=== PATIENT | female | born 1950 | race Caucasian/White ===

== ENCOUNTER 2019-02-22 06:41 | Inpatient (IN) | payer OTHER ==
[2019-02-22] MEDS ORDERED: MORPHINE 2 MG/ML SYR ONE (07:29)
[2019-02-22] MEDS ORDERED: ONDANSETRON 4 MG/2 ML VIAL ONE (07:30)
[2019-02-22] MEDS ORDERED: FAMOTIDINE 20 MG/2 ML VIAL IV ONE (07:30)
[2019-02-22] MEDS ORDERED: NA CHLORIDE 0.9% 500 ML ONE ×2 (07:30→11:44)
[2019-02-22] MEDS ORDERED: NA CHLORIDE 0.9% 1,000 ML ONE (07:30)
[2019-02-22 07:31] LABS: Basophils % 0.5 % (0-1.3); Hematocrit 37.6 % (36.0-45.0); Lymphocytes % 14.3 % (15.3-44.8); MPV 7.7 fL (7.6-11.3); RBC Red Blood Cell Count 4.37 M/uL (3.86-4.86)
[2019-02-22 07:45] LABS: Albumin 3.1 g/dL (3.4-5.0); Bilirubin Direct 0.1 mg/dL (0-0.2); Bilirubin Total 0.6 mg/dL (0.2-1.0); Magnesium 2.2 mg/dL (1.8-2.4); Potassium 4.3 mmol/L (3.5-5.1); Protein, Total 7.8 g/dL (6.4-8.2)
--- NOTE | 2019-02-22 08:25 | RAD REPORT ---
EXAM DESCRIPTION: RAD - Chest Single View - 02/22/2019 7:28 am CLINICAL HISTORY: ABDOMINAL DISTENTION Chest pain. COMPARISON: No comparisons FINDINGS: Portable technique limits examination quality. The lungs are grossly clear. The heart is mildly enlarged in size. No displaced fractures.Aortic athe rosclerosis. IMPRESSION: No acute intrathoracic process suspected.
--- NOTE | 2019-02-22 08:41 | RAD REPORT ---
EXAM DESCRIPTION: US - Extremity Venous Uni Ltd - 02/22/2019 8:30 am CLINICAL HISTORY: PAIN Leg swelling and edema. COMPARISON: <Comparisons> FINDINGS: Left lower extremity venous system was interrogated with Doppler technique. Normal flow, c ompressibility and augmentation was noted. There is no DVT present. IMPRESSION: No evidence of left lower extremity deep venous thrombosis.
--- NOTE | 2019-02-22 08:57 | RAD REPORT ---
EXAM DESCRIPTION: CTAbdomen Pelvis W Contrast - 02/22/2019 8:38 am CLINICAL HISTORY: Abdominal pain. Abdominal distention;Abd pain COMPARISON: No comparisons TECHNIQUE: Biphasic CT imaging of the abdomen and pelvis was performed with 100 ml non-ionic IV cont rast. All CT scans are performed using dose optimization technique as appropriate and may include automated exposure control or mA/KV adjustment according to patient size. FINDINGS: The lung bases are clear. There is prominent distention of the gallbladder with probable trace pericholecystic fluid and planning intern al stone. Mild fatty liver is present. The spleen, right adrenal gland are normal. 3 cm left adrenal mass is present. Punctate calculus is present in the left kidney. No hydronephrosis. No right-sided s tone seen. No bowel obstruction, free air, intra-abdominal free fluid or abscess. Aortic atherosclerosis. The ap pendix is normal. Sigmoid diverticulosis without diverticulitis. No evidence of significant lymphaden opathy. Trace free fluid is seen in the pelvis. Moderate lumbar degenerative changes. IMPRESSION: Prominent distention of the gallbladder is seen with cholelithiasis suspected. Correlati on with gallbladder sonography would be recommended. 3 cm left adrenal mass is present, probably metastatic.
[2019-02-22 09:13] LABS: Anisocytosis 1+; Blood Morphology Comment NOTED (NOT SEEN); Platelet Estimate INCR
--- NOTE | 2019-02-22 09:46 | RAD REPORT ---
EXAM DESCRIPTION: US - Abdomen Exam Limited - 02/22/2019 9:31 am CLINICAL HISTORY: ABD PAIN COMPARISON: No comparisons FINDINGS: The gallbladder demonstrates shadowing gallstones and debris. Gallbladder wall mildly thic kened measuring 4 mm. The common bile duct is upper limit of normal measuring 6 mm. The liver demonstrates no findings of intrahepatic biliary dilatation. IMPRESSION: Cholelithiasis with upper limit of normal gallbladder wall and mild gallbladder distensi on. If acute cholecystitis is a clinical concern, HIDA scan followup may be of value.
[2019-02-22 10:43] LABS: Urine Bacteria >50 /HPF (<20); Urine RBC >50 /HPF (NONE SEEN)
[2019-02-22 10:44] LABS: Urine Culture Reflex Order NOT NEEDED
[2019-02-22] MEDS ORDERED: CEFTRIAXONE/SWI 1gm 1 GM/10 ML SYR ONE (11:05)
--- NOTE | 2019-02-22 11:07 | EKG ---
Test Date: 2019-02-22 Test Time: 07:23:39 Child Adolescent Psychiatrist: LINA MEASUREMENT RESULTS: Intervals: Rate: 118 KS: 158 QRSD: 106 QT: 344 QTc: 482 [place]: P: -20 KS: 158 QRS: -67 T: 62 INTERPRETIVE STATEMENTS: Sinus tachycardia with occasional and consecutive premature ventricular complexes Left axis deviation Inferior infarct, age undetermined Anterolateral infarct, age undetermined Abnormal ECG No previous ECG available for comparison Electronically Signed On 02-22-19 11:06:00 CDT by Chet Tay
--- NOTE | 2019-02-22 11:34 | ER ---
Nurse's Notes [facility] Name: Audra Gonzalez Age: 68 yrs Sex: Female : 1950 Arrival Date: 02/22/2019 Time: 06:58 Bed 7 Private MD: Diagnosis: Unspecified abdominal pain;Cholelithiasis Presentation: 02/22 07:02 Presenting complaint: EMS states: Abdominal pain and distention x 2 weeks; On hospice lp1 related to inoperable brain cancer; Daughter states unsure if she may be constipated; Tender on palpation to RLQ of abdomen. Transition of care: patient was not received from another setting of care. Onset of symptoms was February 22, 2019. Risk Assessment: Do you want to hurt yourself or someone else? Patient reports no desire to harm self or others. Initial Sepsis Screen: Does the patient meet any 2 criteria? RR > 20 per min. HR > 90 bpm. Does the patient have a suspected source of infection? Yes: Acute abdominal pain If YES to both, name of provider notified: Mc CAMARILLO Care prior to arrival: None. 07:02 Method Of Arrival: EMS: [facility] lp1 07:02 Acuity: ELIZ 3 lp1 Triage Assessment: 07:07 General: Appears in no apparent distress. Behavior is calm. Pain: Complains of pain in lp1 abdomen Pain currently is 8 out of 10 on a pain scale. Neuro: Level of Consciousness is awake, Oriented to person, place. GI: Abdomen is distended. Historical: - Allergies: 07:08 No Known Allergies; ak1 - Home Meds: 07:08 lorazepam 1 mg Oral tab 1 tab every 4 hours PRN [Active]; Biscolax 10 mg rectal supp ak1 PRN [Active]; morphine 100mg/5mL Oral CERP 0.5 mL every 2 hours PRN [Active]; citalopram 20 mg tab 1 tab once daily [Active]; metoprolol tartrate 100 mg Oral tab 1 tab once daily [Active]; cyclobenzaprine 10 mg Oral tab 1 tab 3 times per day [Active]; Seroquel 100 mg Oral tab 1 tab at bedtime [Active]; spironolactone 25 mg Oral tab 1 tab 2 times per day [Active]; gabapentin 400 mg oral cap 1 cap 2 times daily [Active]; tramadol 50 mg Oral tab 1 tab every 6 hours [Active]; - PMHx: 07:08 Hypertension; brain cancer; AVM; Depression; ak1 - Immunization history:: Adult Immunizations up to date. - Ebola Screening: : No symptoms or risks identified at this time. - Social history:: Smoking status: Patient/guardian denies using tobacco. Screenin:07 Abuse screen: Denies threats or abuse. Denies injuries from another. Nutritional lp1 screening: No deficits noted. Tuberculosis screening: No symptoms or risk factors identified. Fall Risk Total [place] Fall Scale indicates High Risk Score (45 or more points). Fall prevention measures have been instituted. Side Rails Up X 2 Family Present and informed to notify staff if the need to leave the bedside As available patient and family educated on Fall Prevention Program and Strategies. Assessment: 07:00 General: SEE TRIAGE NOTE. bp 07:00 GI: Bowel sounds present X 4 quads. Abd is soft X 4 quads. bp 07:48 Reassessment: U/S AT B/S. bp 08:17 Reassessment: ALL CURRENT ORDERS COMPLETED, RESULTS PENDING. bp 08:28 Reassessment: PT TO CT. bp 09:18 Reassessment: PT RETURN TO RADIOLOGY. bp 10:00 Reassessment: PT RESTING QUIETLY, NO ACUTE S/S AT THIS TIME. RESULTS PENDING FOR DISPO. bp 10:00 Reassessment: Patient appears in no apparent distress at this time. GI: Bowel sounds bp present X 4 quads. 11:20 Reassessment: PT SLEEPING, NO S/S ACUTE DISTRESS, RESULTS PENDING FOR DISPO. bp 12:49 Reassessment: PT SLEEPING. ADMIT MD AT B/S. bp 13:30 Reassessment: ADMIT IN PROCESS, VS STABLE ON MONITOR. bp 15:30 Reassessment: BED ASSIGNED, ADMIT ORDERS PENDING. bp 16:32 Reassessment: ADMIT COMPLETE, PT MATT WITH TECH. bp Vital Signs: 07:05 BP 115 / 73; Pulse 118; Resp 24; Temp 98.9(O); Pulse Ox 97% on 2 lpm NC; Weight 115.67 lp1 kg; Height 5 ft. 3 in. (160.02 cm); Pain 8/10; 07:20 BP 113 / 69; Pulse 116; Resp 24; Pulse Ox 96% on 2 lpm NC; bp 08:00 BP 123 / 61; Pulse 114; Resp 28; Pulse Ox 97% ; bp 09:00 BP 110 / 50; Pulse 105; Resp 18; Pulse Ox 97% ; bp 10:02 BP 96 / 66; Pulse 111; Resp 17; Pulse Ox 98% ; bp 11:20 BP 98 / 54; Pulse 104; Resp 18; Pulse Ox 95% ; bp 12:49 BP 95 / 50; Pulse 97; Resp 13; Pulse Ox 97% ; bp 13:30 BP 105 / 56; Pulse 97; Resp 13; Pulse Ox 97% ; bp 14:30 BP 109 / 56; Pulse 99; Resp 12; Pulse Ox 98% ; bp 15:27 BP 101 / 55; Pulse 102; Resp 13; Pulse Ox 98% ; bp 16:30 BP 108 / 56; Pulse 102; Resp 15; Pulse Ox 99% ; bp 07:05 Body Mass Index 45.17 (115.67 kg, 160.02 cm) lp1 ED Course: 06:58 Patient arrived in ED. lp1 06:59 Mc Peter PA is PHCP. cp 06:59 Mc Frias MD is Attending Physician. cp 07:03 Reed Altamirano MD is Attending Physician. cp 07:05 Triage completed. lp1 07:06 Arm band placed on. lp1 07:06 Patient has correct armband on for positive identification. Bed in low position. Side lp1 rails up X2. school bus monitor on. Pulse ox on. NIBP on. 07:15 Inserted saline lock: 22 gauge in right hand, using aseptic technique. Blood collected. bp 07:20 Denis Bates, RN is Primary Nurse. bp 07:27 XRAY Chest (1 view) In Process Unspecified. EDMS 07:45 EKG done, by ED staff, reviewed by Mc CAMARILLO. jl7 07:59 Radiology exam delayed due to ultrasound in room. jg6 08:00 Inserted saline lock: 22 gauge in left wrist, using aseptic technique. bp 08:04 US Extremity Venous Unilateral Ltd In Process Unspecified. EDMS 08:06 Ultrasound completed. maurisio 08:39 CT Abd/Pelvis - IV Contrast Only In Process Unspecified. EDMS 09:29 US Abdomen Limited: RUQ/epigastric In Process Unspecified. EDMS 09:56 Urine collected: straight cath specimen, cloudy. Straight cath inserted, using sterile jl7 technique, 16 Fr. Specimen obtained. Returned cloudy urine. Patient tolerated well. Inserted by ARCENIO Gabriel with [employer]. 11:33 Constantino Flores is Hospitalizing Provider. cp 14:51 No provider procedures requiring assistance completed. Patient admitted, IV remains in bp place. Administered Medications: 07:30 Drug: NS 0.9% 500 ml Route: IV; Rate: bolus; Site: right hand; bp 08:30 Follow up: IV Status: Completed infusion; IV Intake: 500ml bp 07:30 Drug: NS 0.9% 1000 ml Route: IV; Rate: 125 ml/hr; Site: right hand; bp 16:33 Follow up: IV Status: Completed infusion; IV Intake: 1000ml bp 07:30 Drug: morphine 2 mg Route: IVP; Site: right hand; bp 07:41 Follow up: Response: Pain is decreased bp 07:30 Drug: Zofran 4 mg Route: IVP; Site: right hand; bp 07:42 Follow up: Response: Nausea is decreased bp 07:30 Drug: Pepcid 20 mg Route: IVP; Site: right hand; bp 07:42 Follow up: Response: Nausea is decreased bp 10:45 Drug: Rocephin 1 grams Route: IV; Rate: calculated rate; Site: right antecubital; bp 11:15 Follow up: IV Status: Completed infusion; IV Intake: 50ml bp 11:40 Drug: NS 0.9% 500 ml Route: IV; Rate: bolus; Site: left wrist; bp 13:00 Follow up: IV Status: Completed infusion; IV Intake: 500ml bp Intake: 08:30 IV: 500ml; Total: 500ml. bp 11:15 IV: 50ml; Total: 550ml. bp 13:00 IV: 500ml; Total: 1050ml. bp 16:33 IV: 1000ml; Total: 2050ml. bp Outcome: 11:33 Decision to Hospitalize by Provider. cp 15:28 Admitted to Tele accompanied by tech, via stretcher, room 215, with oxygen, with chart, bp Report called to BILLIE RG 15:28 Condition: stable 15:28 Instructed on the need for admit. 16:44 Patient left the ED. bp Signatures: Dispatcher [employer] EDJenn Aguirre RN RN lp1 Stefany Love RN RN ak1 Mc Peter PA PA cp Dupre, Jacques jd Leal, Jahala RN RN jl7 Denis Bates RN RN Leigh [id number] Corrections: (The following items were deleted from the chart) 07:06 07:02 Initial Sepsis Screen: Does the patient meet any 2 criteria? No. Patient's lp1 initial sepsis screen is negative. Does the patient have a suspected source of infection? No. Patient's initial sepsis screen is negative. lp1 15:29 15:27 Pulse 102bpm; Resp 13bpm; Pulse Ox 98%; bp bp
--- NOTE | 2019-02-22 11:35 | EDPHYS ---
Physician Documentation [facility] Name: Audra Gonzalez Age: 68 yrs Sex: Female : 1950 Arrival Date: 02/22/2019 Time: 06:58 Bed 7 Private MD: ED Physician Reed Altamirano HPI: 02/22 07:13 This 68 yrs old Female presents to ER via EMS with complaints of Abdominal Pain. cp 07:13 The patient presents with abdominal pain abdominal distention that is diffuse. cp 07:13 Onset: The symptoms/episode began/occurred 2 week(s) ago, and became worse 2 day(s) cp ago. The symptoms do not radiate. Associated signs and symptoms: Pertinent positives: anorexia, Pertinent negatives: blood in stools, chest pain, constipation, diarrhea, fever, shortness of breath. Severity of pain: in the emergency department the pain is unchanged despite home interventions. Daughter reports patient with history of inoperable brain CA and has been bed bound for past 2 years. Patient was on hospice, but hospice has been discontinued because the pain medications made patient less interactive. Historical: - Allergies: 07:08 No Known Allergies; ak1 - Home Meds: 07:08 lorazepam 1 mg Oral tab 1 tab every 4 hours PRN [Active]; Biscolax 10 mg rectal supp ak1 PRN [Active]; morphine 100mg/5mL Oral CERP 0.5 mL every 2 hours PRN [Active]; citalopram 20 mg tab 1 tab once daily [Active]; metoprolol tartrate 100 mg Oral tab 1 tab once daily [Active]; cyclobenzaprine 10 mg Oral tab 1 tab 3 times per day [Active]; Seroquel 100 mg Oral tab 1 tab at bedtime [Active]; spironolactone 25 mg Oral tab 1 tab 2 times per day [Active]; gabapentin 400 mg oral cap 1 cap 2 times daily [Active]; tramadol 50 mg Oral tab 1 tab every 6 hours [Active]; - PMHx: 07:08 Hypertension; brain cancer; AVM; Depression; ak1 - Immunization history:: Adult Immunizations up to date. - Ebola Screening: : No symptoms or risks identified at this time. - Social history:: Smoking status: Patient/guardian denies using tobacco. ROS: 07:20 Constitutional: Positive for poor PO intake, Negative for body aches, chills, fever. cp 07:20 Eyes: Negative for injury, pain, redness, and discharge. cp 07:20 ENT: Negative for drainage from ear(s), ear pain, sore throat, difficulty swallowing, difficulty handling secretions. 07:20 Cardiovascular: Negative for chest pain, edema. 07:20 Respiratory: Negative for cough, shortness of breath, wheezing. 07:20 Abdomen/GI: Positive for abdominal pain, nausea, abdominal distension, Negative for vomiting, diarrhea, constipation, black/tarry stool, rectal bleeding. 07:20 Back: Negative for pain at rest, pain with movement. 07:20 : Negative for urinary symptoms. 07:20 Skin: Negative for cellulitis, rash. 07:20 Neuro: Negative for altered mental status, headache. 07:20 All other systems are negative. Exam: 07:30 Constitutional: The patient appears in no acute distress, alert, awake, cp non-diaphoretic, non-toxic, well developed, well nourished, uncomfortable. 07:30 Head/Face: Normocephalic, atraumatic. cp 07:30 Eyes: Periorbital structures: appear normal, Conjunctiva: normal, no exudate, no injection, Sclera: no appreciated abnormality, Lids and lashes: appear normal, bilaterally. 07:30 ENT: External ear(s): are unremarkable, Ear canal(s): are normal, clear, TM's: bulging, is not appreciated, bilaterally, dullness, bilaterally, erythema, is not appreciated, bilaterally, Nose: is normal, Mouth: Lips: dry, Oral mucosa: dry, Posterior pharynx: is normal, airway is patent, no erythema, no exudate. 07:30 Neck: ROM/movement: is normal, is supple, without pain, no range of motions limitations, no meningismus, no nuchal rigidity. 07:30 Chest/axilla: Inspection: normal, Palpation: is normal, no crepitus, no tenderness. 07:30 Cardiovascular: Rate: tachycardic, Rhythm: regular, Edema: is not appreciated, JVD: is not appreciated. 07:30 Respiratory: the patient does not display signs of respiratory distress, Respirations: labored breathing, that is mild, tachypnea, that is mild, Breath sounds: decreased breath sounds, that are mild, throughout, stridor, is not appreciated. 07:30 Abdomen/GI: Inspection: distension, that is mild, Bowel sounds: active, all quadrants, Palpation: soft, in all quadrants, moderate abdominal tenderness, in the right upper quadrant, rebound tenderness, is not appreciated, voluntary guarding, is not appreciated, involuntary guarding, is not appreciated. 07:30 Back: pain, is absent, ROM is normal. 07:30 Skin: no rash present. 07:30 Neuro: Orientation: no acute changes, per family, Mentation: no acute changes, per family. 07:35 ECG was reviewed by the Attending Physician. cp Vital Signs: 07:05 BP 115 / 73; Pulse 118; Resp 24; Temp 98.9(O); Pulse Ox 97% on 2 lpm NC; Weight 115.67 lp1 kg; Height 5 ft. 3 in. (160.02 cm); Pain 8/10; 07:20 BP 113 / 69; Pulse 116; Resp 24; Pulse Ox 96% on 2 lpm NC; bp 08:00 BP 123 / 61; Pulse 114; Resp 28; Pulse Ox 97% ; bp 09:00 BP 110 / 50; Pulse 105; Resp 18; Pulse Ox 97% ; bp 10:02 BP 96 / 66; Pulse 111; Resp 17; Pulse Ox 98% ; bp 11:20 BP 98 / 54; Pulse 104; Resp 18; Pulse Ox 95% ; bp 12:49 BP 95 / 50; Pulse 97; Resp 13; Pulse Ox 97% ; bp 13:30 BP 105 / 56; Pulse 97; Resp 13; Pulse Ox 97% ; bp 14:30 BP 109 / 56; Pulse 99; Resp 12; Pulse Ox 98% ; bp 15:27 BP 101 / 55; Pulse 102; Resp 13; Pulse Ox 98% ; bp 16:30 BP 108 / 56; Pulse 102; Resp 15; Pulse Ox 99% ; bp 07:05 Body Mass Index 45.17 (115.67 kg, 160.02 cm) lp1 MDM: 07:03 Patient medically screened. cp 10:25 Data reviewed: vital signs, nurses notes, lab test result(s), radiologic studies, CT cp scan, ultrasound. 10:25 Physician consultation: Noah Forrester MD was called at 10:25, regarding consult, patient's cp condition, bending roll operator will page. 10:45 Physician consultation: Noah Forrester MD was called at 10:45, bending roll operator will page. cp 11:31 Physician consultation: Constantino Flores was called at 11:31, was contacted at 11:31, cp regarding admission, to the medical/surgical unit. patient's condition, and will see patient in ED. 11:40 Physician consultation: Noah Forrester MD was called at 11:40, bending roll operator will page. cp 18:20 Physician consultation: Noah Forrester MD was contacted at 18:20, regarding consult, cp patient's condition, after a discussion of the case, a recommendation for transfer for higher level of care is made, requests transfer of patient for evaluation and placement of cholecystectomy tube. 18:25 Physician consultation: Constantino Flores was contacted at 18:25, regarding regarding cp transfer, reports will attempt to transfer patient from floor tomorrow. Will continue IV Rocephin. 02/22 07:02 Order name: Basic Metabolic Panel; Complete Time: 08:19 02/22 07:02 Order name: CBC with Diff; Complete Time: 10:18 02/22 07:42 Interpretation: Normal except: WBC 21.1; PLT 450; MARIEL% 75.7; LYM% 14.3; NEUT A 16.0; cp MNA 1.9. 02/22 07:02 Order name: Creatinine for Radiology; Complete Time: 08:19 cp 02/22 07:02 Order name: Hepatic Function; Complete Time: 08:19 cp 02/22 07:02 Order name: Lipase; Complete Time: 08:19 cp 02/22 07:02 Order name: Urine Microscopic Only; Complete Time: 11:27 02/22 07:02 Order name: Magnesium; Complete Time: 08:19 cp 02/22 07:02 Order name: CT Abd/Pelvis - IV Contrast Only; Complete Time: 09:00 cp 02/22 07:12 Order name: Procalcitonin; Complete Time: 08:19 02/22 07:12 Order name: Lactate; Complete Time: 08:19 cp 02/22 07:12 Order name: XRAY Chest (1 view); Complete Time: 08:42 cp 02/22 08:42 Interpretation: Report review. 02/22 07:19 Order name: Blood Culture Adult (2) lp1 02/22 09:14 Order name: Manual Differential; Complete Time: 10:18 EDMS 12 10:28 Order name: Urine Dipstick--Ancillary (enter results); Complete Time: 19:27 bd 02/22 07:02 Order name: IV Saline Lock; Complete Time: 07:24 cp 02/22 07:02 Order name: Labs collected and sent; Complete Time: 07:24 cp 02/22 07:02 Order name: Urine Dipstick-Ancillary (obtain specimen); Complete Time: 11:08 cp 02/22 07:12 Order name: EKG; Complete Time: 07:13 cp 02/22 07:12 Order name: EKG - Nurse/Tech; Complete Time: 07:24 cp 02/22 07:20 Order name: Extremity Venous Unilateral Ltd; Complete Time: 09:00 cp 02/22 09:02 Order name: Abdomen Limited: RUQ/epigastric; Complete Time: 10:18 cp 02/22 10:19 Interpretation: Report reviewed. cp EC:35 Rate is 118 beats/min. Rhythm is regular. [place] interval is normal. QRS interval is cp prolonged at 106 msec. QT interval is normal. Interpreted by me. Reviewed by me. Administered Medications: 07:30 Drug: NS 0.9% 500 ml Route: IV; Rate: bolus; Site: right hand; bp 08:30 Follow up: IV Status: Completed infusion; IV Intake: 500ml bp 07:30 Drug: NS 0.9% 1000 ml Route: IV; Rate: 125 ml/hr; Site: right hand; bp 16:33 Follow up: IV Status: Completed infusion; IV Intake: 1000ml bp 07:30 Drug: morphine 2 mg Route: IVP; Site: right hand; bp 07:41 Follow up: Response: Pain is decreased bp 07:30 Drug: Zofran 4 mg Route: IVP; Site: right hand; bp 07:42 Follow up: Response: Nausea is decreased bp 07:30 Drug: Pepcid 20 mg Route: IVP; Site: right hand; bp 07:42 Follow up: Response: Nausea is decreased bp 10:45 Drug: Rocephin 1 grams Route: IV; Rate: calculated rate; Site: right antecubital; bp 11:15 Follow up: IV Status: Completed infusion; IV Intake: 50ml bp 11:40 Drug: NS 0.9% 500 ml Route: IV; Rate: bolus; Site: left wrist; bp 13:00 Follow up: IV Status: Completed infusion; IV Intake: 500ml bp Disposition: 18:45 Co-signature as Attending Physician, Reed Altamirano MD. ma2 Disposition: 02/22/19 11:33 Hospitalization ordered by Constantino Flores for Inpatient Admission. Preliminary diagnosis are Unspecified abdominal pain, Cholelithiasis. - Bed requested for Telemetry/MedSurg (Inpatient). - Status is Inpatient Admission. bp - Condition is Stable. - Problem is new. - Symptoms have improved. UTI on Admission? No Signatures: Dispatcher [employer] EDMS Hayley Veliz RN RN dw Jenn Marley RN RN lp1 Stefany Love RN RN ak1 Mc Peter PA PA cp Peltier, Brian RN RN Reed Koehler MD MD ma2 Corrections: (The following items were deleted from the chart) 07:42 07:41 Normal except: WBC 21.1; PLT 450; MARIEL% 75.7; LYM% 14.3. cp cp 14:38 11:33 Hospitalization Ordered by Constantino Flores for Inpatient Admission. Preliminary dw diagnosis is Unspecified abdominal pain; Cholelithiasis. Bed requested for Telemetry/MedSurg (Inpatient). Status is Inpatient Admission. Condition is Stable. Problem is new. Symptoms have improved. UTI on Admission? No. cp 16:44 14:38 02/22/2019 11:33 Hospitalization Ordered by Constantino Flores for Inpatient bp Admission. Preliminary diagnosis is Unspecified abdominal pain; Cholelithiasis. Bed requested for Telemetry/MedSurg (Inpatient). Status is Inpatient Admission. Condition is Stable. Problem is new. Symptoms have improved. UTI on Admission? No. dw
--- NOTE | 2019-02-22 13:22 | P.HP ---
Certification for Inpatient With expected LOS: >2 Midnights Practitioner: I am a practitioner with admitting privileges, knowledge of patient current condition, hospital course, and medical plan of care. Services: Services provided to patient in accordance with Admission requirements found in Title 42 Section 412.3 of the Code of Federal Regulations Patient History Date of Service: 02/22/19 Reason for admission: Abdominal pain, generalized weakness. History of Present Illness: 68-year-old woman with a history of vascular brain mass, previously on hospice, hospice revoked about 1 month ago, was brought to the emergency department by her daughter with a complaint of abdominal pain. Daughter reports patient had been eating and drinking less over the past 1 week. She denied any fever, denied any diarrhea or constipation. Patient was obtunded after she was given a dose of IV morphine in the ED and could not provide any history. CT abdomen and pelvis done in the ED report distended gallbladder with stones and mild pericholecystic fluid suggesting acute cholecystitis. No dilated common bile duct. It also reported that the recent in the left adrenal mass which could be metastatic disease. She feels patient was on hospice for 5 years and did well and now want aggressive measures. Blood work demonstrates severe leukocytosis. She has tachycardia but no fever but meet criteria for sepsis. Patient is admitted for further management. Home medications list reviewed: Yes - Past Medical/Surgical History Diabetic: Yes -: Congestive heart failure. -: Hypertension -: Neuropathy -: Bilateral tubal ligation - Family History Mother -: Diabetes - Social History Smoking Status: Former smoker Alcohol use: No CD- Drugs: No Caffeine use: No Review of Systems is unable to be obtained (Due to altered mental status) Physical Examination - Physical Exam General: Unresponsive HEENT: Atraumatic, Other (Constricted pupils) Neck: Supple, JVD not distended, No Thyromegaly Respiratory: Clear to auscultation bilaterally, Diminished Cardiovascular: No edema, Regular rate/rhythm, Normal S1 S2, No murmurs Capillary refill: <2 Seconds Gastrointestinal: Normal bowel sounds, No masses, Tenderness (Right upper quadrant) Musculoskeletal: No clubbing, No swelling, No erythema Neurological: Other (Unresponsive) Lymphatics: No axilla or inguinal lymphadenopathy - Studies Laboratory Data (last 24 hrs) 02/22/19 07:15: Creatinine 0.78 02/22/19 07:15: WBC 21.1 H*, Hgb 12.4, Hct 37.6, Plt Count 450 H 02/22/19 07:15: Sodium 135 L, Potassium 4.3, BUN 16, Creatinine 0.81, Glucose 153 H, Magnesium 2.2, Total Bilirubin 0.6, AST 8 L, ALT 17, Alkaline Phosphatase 95, Lipase 129 Assessment and Plan - Problems (Diagnosis) (1) Cholelithiasis Current Visit: Yes Status: Chronic (2) Sepsis Current Visit: Yes Status: Acute (3) Brain mass Current Visit: Yes Status: Chronic (4) 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 Start IV Rocephin HIDA scan to confirm acute cholecystitis General surgery consult-lap cholecystectomy versus cholecystostomy tube. Hold psychotropic medication due to altered mental status. Limit opioids as much as possible. Avoid benzodiazepines. Monitor CBC. Adrenal mass follow up as outpatient. - Advance Directives Does patient have a Living Will: No Does patient have a Durable POA for Healthcare: No
[2019-02-22 14:35] LABS: Urine Blood 2+ (NEG); Urine Glucose NEGATIVE (NEG); Urine Protein 2+ (NEG); Urine Specific Gravity 1.015 (1.005-1.030)
[2019-02-22] MEDS ORDERED: ACETAMINOPHEN 500 MG TAB PO PRN (17:16)
[2019-02-22] MEDS ORDERED: ONDANSETRON 4 MG/2 ML VIAL IV PRN (17:16)
[2019-02-22 17:40] VITALS: BMI 27.3
[2019-02-22] MEDS: D5 0.9 NS 1,000 ML IV SCH (18:12)
--- NOTE | 2019-02-23 06:15 | P.PN ---
Date of Service: 02/22/19 Patient denied by BEBE Mckinney at the administrative level. Doctor to doctor was not done. Patient may need to transfer to another facility.
[2019-02-23 06:23] LABS: Albumin 2.6 g/dL (3.4-5.0); Bilirubin Total 0.2 mg/dL (0.2-1.0); Phosphorus 2.6 mg/dL (2.5-4.9); Potassium 4.6 mmol/L (3.5-5.1); Protein, Total 6.9 g/dL (6.4-8.2)
[2019-02-23 06:24] LABS: Magnesium 2.2 mg/dL (1.8-2.4)
[2019-02-23] MEDS ORDERED: CYCLOBENZAPRINE 10 MG TAB PO PRN (06:26)
[2019-02-23] MEDS ORDERED: TRAMADOL HCL 50 MG TAB PO PRN (06:26)
[2019-02-23] MEDS ORDERED: LORAZEPAM 1 MG TABLET PO PRN (06:26)
[2019-02-23 07:39] LABS: Absolute Lymphocytes (CBC) 1.4 K/uL (0.7-4.9); Basophils % 0.5 % (0-1.3); Hematocrit 34.2 % (36.0-45.0); Lymphocytes % 6.2 % (15.3-44.8); MPV 8.1 fL (7.6-11.3); RBC Red Blood Cell Count 3.93 M/uL (3.86-4.86)
[2019-02-23 08:44] LABS: Blood Morphology Comment NOT SEEN (NOT SEEN); Platelet Estimate ADEQ
[2019-02-23] MEDS ORDERED: BISACODYL 10 MG RECTAL SUPP PR SCH (09:00)
[2019-02-23] MEDS ORDERED: GABAPENTIN 400 MG CAP PO SCH (09:00)
[2019-02-23] MEDS ORDERED: QUETIAPINE 25 MG TAB PO SCH (09:00)
[2019-02-23] MEDS ORDERED: CEFTRIAXONE/SWI 1gm 1 GM/10 ML SYR IVP SCH (09:00)
[2019-02-23] MEDS: PIPER/TAZO/NS 3.375gm 3.375 GM/100 ML BAG IVPB SCH ×2 (09:45→16:59)
[2019-02-23 10:32] VITALS: O2SAT 92
--- NOTE | 2019-02-23 10:49 | RAD REPORT ---
EXAM DESCRIPTION: CT - Head Brain Wo Cont - 02/23/2019 10:20 am CLINICAL HISTORY: Alteration of awareness/confusion COMPARISON: None TECHNIQUE: Computed axial tomography of the head was obtained. IV contrast was not requested. All CT scans are performed using dose optimization technique as appropriate and may include automated exposure control or mA/KV adjustment according to patient size. FINDINGS: A 5 centimeter mass is present within the right temporal lobe which contains calcification s and compresses the right aspect of the cary/midbrain. The third ventricle is compressed. There is s hift of the midline structures towards the left. Mild dilatation of lateral ventricle is present. IMPRESSION: 5 centimeter right temporal lobe mass containing calcification may represent an arteriov enous malformation or neoplasm. MRI/MRA recommended for further evaluation. Examination was discussed with Dr. Forrester
[2019-02-23] MEDS: D5 0.9 NS 1,000 ML IV SCH (16:58)
[2019-02-23 17:04] VITALS: BP 120/61; TEMP 97.1
--- NOTE | 2019-02-23 18:12 | CON ---
Date of Consultation: 02/22/2019 Reason For Consultation: Acute cholecystitis, cholelithiasis, urosepsis, AV malformation. History Of Present Illness: The patient is a 68-year-old female, who has a history of AV malformatio n on her brain and she had been on hospice for about 5 years because of congestive heart failure and felt like she was not going to improve; however, she did get better and the hospice was revoked by rocael clemens daughter about a month ago. She was in her usual state of health up until the last week or so. Sh jayleen started eating and drinking less, complained of diffuse abdominal pain. No diarrhea. No constipat ion. No blood in her stool. She wears a diaper and she tends to hold her urine in for a long time. She has had urine infections in the past. She was given morphine in the ER yesterday and she has be en somewhat sedated ever since and she is unable to wake up and give me adequate review of systems. Most of the history is obtained from the computer records as well as talking to the daughter. No sor e throat, runny nose, cough, headaches, or dizziness. No chest pain. No fever or chills. Review of Systems: Otherwise unremarkable. Past Medical History: Significant for congestive heart failure, hypertension, neuropathy, bilateral tubal ligation, and brain mass likely AV malformation. Past Surgical History: Bilateral tubal ligation. Allergies: . Social History: The patient does not smoke or drink. Family History: Significant for diabetes. Physical Examination: Vital Signs: Stable. She was slightly tachycardic yesterday, but is down to 102 now. Afebrile. Head and Neck: Cranial nerves 2 through 12 are grossly within normal limits. No neck masses. No JV D. Throat clear. Neck is supple. Chest: Clear. Heart: S1, S2. Abdomen: Soft, nondistended. Positive bowel sounds. Right upper quadrant and right middle quadrant suprapubic region tenderness without rebound, rigidity, or guarding. Extremities: Adequately perfused. Nontender. Neuro: Nonfocal. Laboratory Data: White count yesterday was 21.1, today is 22.7. There is a left shift. Chemistry r eviewed. LFTs within normal limits. Lipase is within normal limits. Procalcitonin and lactic acid are within normal limits. Urinalysis shows 2+ blood, nitrite is negative, 3+ esterase, greater than 50 white cells, greater than [address] of the abdomen and pelvis reviewed. Prominent distenti on of the gallbladder seen with cholelithiasis suspected, correlation with sonography recommended. 3 cm left adrenal mass is present, probably metastatic. Venous ultrasound of the left extremity, nega tive for DVT. Ultrasound shows cholelithiasis with upper limit of normal gallbladder wall. Mild gal lbladder distention. If acute cholecystitis is a clinical concern, HIDA scan would maybe of value. Patient had CT of the head done as well, which shows a 5 cm mass present within the right temporal lo be, contains calcification, compresses the right aspect of the cary and mid brain, third ventricle is compressed. There is a shift of the midline structure toward the left. Mild dilatation of the late ral ventricle is present. MRI and MRA recommended for further evaluation. Assessment: A 68-year-old female with multiple medical problems with cholelithiasis, cholecystitis, probably chronic in nature, although there may be an acute component, and there is a possibility of u rosepsis. She also has an AV malformation likely in the right temporal lobe and an adrenal mass whic h radiographically appears to be metastatic, although there has been no etiology as far as the primar y. Chest x-ray was also negative. Recommendations: N.p.o., antibiotics, IV fluids. Check the urine cultures. Should get a HIDA scan to see if patient has acute cholecystitis. Given the comorbidities this patient presents with, any i ntervention requiring general anesthesia would be at very high risk proposition, especially in this f acility, therefore my recommendation would be to consider transfer to a higher level of care so that the patient can get intervention if necessary, possibly a cholecystostomy tube for the gallbladder if indeed the HIDA scan comes back with acute cholecystitis to alleviate the acute phase of her issues, and we do not currently have Neurology availability here, nor do we have Neurosurgery here. A trans brandin surgeon on-call today at [facility] spoke with me just now and he will be talking to his a dministrator regarding transfer to their facility. Meanwhile, over here, we will continue with our w orkup as we have and make further recommendations as the case develops, but hopefully, the plan is to get her to [facility] as soon as possible. /MODL Voice ID: [id number] Report ID: [id number]
--- NOTE | 2019-02-23 18:41 | P.DS ---
Admission Date: 02/22/19 Discharge Date: 02/23/19 Disposition: TRANSFER TO [facility] Discharge Condition: FAIR Reason for Admission: Abdominal pain, generalized weakness. - Problems (1) Cholelithiasis Status: Chronic (2) Sepsis Status: Acute (3) Brain mass Status: Chronic (4) AVM (arteriovenous malformation) brain Status: Chronic (5) Adrenal mass Status: Chronic (6) Altered mental state Status: Acute Brief History of Present Illness: 68-year-old woman with a history of vascular brain mass, previously on hospice, hospice revoked about 1 month ago, was brought to the emergency department by her daughter with a complaint of abdominal pain. Daughter reports patient had been eating and drinking less over the past 1 week. She denied any fever, denied any diarrhea or constipation. Patient was obtunded after she was given a dose of IV morphine in the ED and could not provide any history. CT abdomen and pelvis done in the ED reported distended gallbladder with stones and mild pericholecystic fluid suggesting acute cholecystitis. No dilated common bile duct. It also reported left adrenal mass which could be metastatic disease. Her daughter feels patient did well on hospice for 5 years and now want aggressive measures. Blood work demonstrates severe leukocytosis. She that criteria for sepsis with tachycardia and leukocytosis. Patient was admitted for further management. Hospital Course: Patient admitted to medical floor. She was started on broad-spectrum IV antibiotics. CT head was done which reported a 5cm right temporal lobe mass with 3rd ventricle compression and midline shift. She was evaluated by general surgery-Dr. Forrester who determined that the patient is a poor surgical candidate for laparoscopic cholecystectomy. Cholecystostomy tube placement was recommended to be done by IR. Her urinalysis suggested the presence of UTI. Blood culture yielded no growth. Patient became obtunded after a dose of IV morphine in the ED and remained on the floor. Her vitals have remained stable. She is transferred to [facility] for the cholecystostomy tube to be placed by IR. Vital Signs/Physical Exam: Temp Pulse Resp BP Pulse Ox 97.1 F 89 18 120/61 99 02/23/19 16:00 02/23/19 16:00 02/23/19 16:00 02/23/19 16:00 02/23/19 16:00 General: In no apparent distress, Confused HEENT: Atraumatic, Normocephalic, Mucous membr. moist/pink Neck: Supple, JVD not distended Respiratory: Clear to auscultation bilaterally, Normal air movement Cardiovascular: Normal S1 S2, Abnormal S3, Edema Gastrointestinal: Normal bowel sounds, Non-distended, Tenderness (Right upper quadrant) Musculoskeletal: No swelling Laboratory Data at Discharge: WBC 22.7 K/uL (4.3-10.9) H* 02/23/19 06:58 Hgb 11.3 g/dL (12.0-15.0) L 02/23/19 06:58 Hct 34.2 % (36.0-45.0) L 02/23/19 06:58 Plt Count 388 K/uL (152-406) 02/23/19 06:58 Sodium 142 mmol/L (136-145) 02/23/19 05:33 Potassium 4.6 mmol/L (3.5-5.1) 02/23/19 05:33 BUN 12 mg/dL (7-18) 02/23/19 05:33 Creatinine 0.71 mg/dL (0.55-1.3) 02/23/19 05:33 Glucose 144 mg/dL (74-106) H 02/23/19 05:33 Phosphorus 2.6 mg/dL (2.5-4.9) 02/23/19 05:33 Magnesium 2.2 mg/dL (1.8-2.4) 02/23/19 05:33 Total Bilirubin 0.2 mg/dL (0.2-1.0) 02/23/19 05:33 AST 14 U/L (15-37) L 02/23/19 05:33 ALT 19 U/L (12-78) 02/23/19 05:33 Alkaline Phosphatase 86 U/L (45-117) 02/23/19 05:33 Lipase 129 U/L (73-393) 02/22/19 07:15 Home Medications: Bisacodyl 10 mg RC DAILY 02/22/19 Cyclobenzaprine [Flexeril] 10 mg PO TID PRN 02/22/19 Furosemide [Lasix] 20 mg PO DAILY 02/22/19 Gabapentin [Neurontin] 400 mg PO BID 02/22/19 LORazepam [Ativan] 1 mg PO Q4H PRN 02/22/19 Quetiapine Fumarate [Seroquel] 50 mg PO BID 02/22/19 Spironolactone [Aldactone] 25 mg PO BID 02/22/19 Tramadol HCl [Ultram] 50 mg PO Q6H PRN 02/22/19
== END 2019-02-23 18:10 | disposition short-term general hospital (02) | DRG 871 ==
LOC: ER 06:41 → 2ND 16:10
PROVIDERS: ADMIT Internal Medicine; ATTEND Internal Medicine
DX: A41.9 Sepsis, unspecified organism (principal); Q28.2 Arteriovenous malformation of cerebral vessels; N39.0 Urinary tract infection, site not specified; K80.00 Calculus of gallbladder with acute cholecystitis without obstruction; E27.9 Disorder of adrenal gland, unspecified; I11.0 Hypertensive heart disease with heart failure; I50.9 Heart failure, unspecified
CPT/HCPCS: 36415; 51702; 70450; 71045; 74177; 76705; 80048; 80053; 80076; 81003; 81015; 82962; 83605; 83690; 83735; 84100; 84145; 85025; 87040; 93005; 93971; 94760; 96361; 96365; 96375; 97110; 97112; 97161; 99285; J0696; J2270; J2405; J2543; J7030; Q9967

== ENCOUNTER 2019-03-23 11:20 | Emergency (ER) | payer OTHER ==
--- NOTE | 2019-03-23 15:29 | RAD REPORT ---
EXAM DESCRIPTION: CT - Abdomen Pelvis Wo Contrast - 03/23/2019 3:16 pm CLINICAL HISTORY: Check placement of cholecystostomy catheter Bold COMPARISON: Abdomen Pelvis W Contrast dated 02/22/2019; Abdomen Exam Limited dated 03/23/2019 TECHNIQUE: Axial [address] imaging of the abdomen and pelvis was performed without IV contrast. No IV contrast was given because of allergy, abnormal renal function, patient refusal or physician re quest. No oral contrast given. Sagittal and coronal reconstruction images generated and reviewed. All CT scans are performed using dose optimization technique as appropriate and may include automated exposure control or mA/KV adjustment according to patient size. FINDINGS: No suspicious findings in the lung bases. The liver, spleen and pancreas show no suspicious findings on non-contrast imaging. Cholecystostomy tube remains within the lumen of the gallbladder positioned at the fundus. Gallbladde r is contracted around stones. No air within the lumen. Gallbladder is mostly decompressed. No biliar y tree dilatation or pneumobilia. No hydronephrosis or suspicious renal mass. Approximately 3.5 centimeter left adrenal mass again not ed. Isodense renal masses and pyelonephritis cannot be excluded in the absence of IV contrast. No keiko dder wall thickening or mass. Bladder wall calcification or punctate bladder stones are present. Uter us and ovaries show no suspicious findings. No dilated bowel loops or bowel wall thickening. No acute GI process. No free air, free fluid or infl ammatory stranding. No hernia, mass or bulky lymphadenopathy. No suspicious bony findings. IMPRESSION: Pigtail from the cholecystostomy tube remains within the lumen of the gallbladder. Tube is positioned in the fundus. No biliary dilatation or pneumobilia. No air within the lumen of the gallbladder. Additional nonacute findings detailed in the body of the report.
--- NOTE | 2019-03-23 15:30 | RAD REPORT ---
EXAM DESCRIPTION: US - Abdomen Exam Limited - 03/23/2019 12:37 pm CLINICAL HISTORY: Cholecystostomy catheter placement COMPARISON: Abdomen Exam Limited dated 02/22/2019 FINDINGS: The patient has known cholelithiasis. There is dense shadowing from 1 or more gallstones w ithin the partially contracted gallbladder. The dense stone shadowing precludes accurate assessment o f the indwelling cholecystostomy tube. Tube is believed to be within the lumen of the gallbladder but this cannot be confirmed. Follow-up CT imaging may be helpful for more definitive position assessment. IMPRESSION: Known cholecystostomy tube tip cannot be confirmed within the lumen. Dense shadowing from known cholelithiasis obscures the tubing.
[2019-03-23] MEDS ORDERED: LIDOCAINE 1% MPF 5 ML VIAL ONE (15:54)
--- NOTE | 2019-03-23 16:55 | ER ---
Nurse's Notes [facility] Name: Audra Gonzalez Age: 68 yrs Sex: Female : 1950 Arrival Date: 03/23/2019 Time: 11:24 Bed 20 Private MD: Diagnosis: Encounter for attention to cholecystostomy tube Presentation: 03/23 11:29 Presenting complaint: EMS states: called out for pulled cholecystostomy tube that was em pulled out about 2 inches, procedure was done on , did not notify DrVladimir on what to do, pt denies pain, N/V, mild redness noted to surgical site. Transition of care: patient was not received from another setting of care. Onset of symptoms was March 23, 2019. Risk Assessment: Do you want to hurt yourself or someone else? Patient reports no desire to harm self or others. Initial Sepsis Screen: Does the patient meet any 2 criteria? No. Patient's initial sepsis screen is negative. Does the patient have a suspected source of infection? No. Patient's initial sepsis screen is negative. Care prior to arrival: None. 11:29 Method Of Arrival: EMS: [facility] em 11:50 Acuity: ELIZ 3 iw Historical: - Allergies: 11:51 No Known Allergies; em - Home Meds: 11:45 Biscolax 10 mg rectal supp PRN [Active]; citalopram 20 mg tab 1 tab once daily em [Active]; spironolactone 25 mg Oral tab 1 tab 2 times per day [Active]; cyclobenzaprine 10 mg Oral tab 1 tab 3 times per day [Active]; gabapentin 400 mg Oral cap 1 cap 2 times daily [Active]; lorazepam 1 mg Oral tab 1 tab every 4 hours PRN [Active]; metoprolol tartrate 100 mg Oral tab 1 tab once daily [Active]; morphine 100mg/5mL Oral CERP 0.5 mL every 2 hours PRN [Active]; Seroquel 100 mg Oral tab 1 tab at bedtime [Active]; tramadol 50 mg Oral tab 1 tab every 6 hours [Active]; - PMHx: 11:45 brain cancer; AVM; Hypertension; Depression; em - PSHx: 14:22 cholecystostomy; em - Immunization history:: Adult Immunizations up to date. - Social history:: Smoking status: Patient/guardian denies using tobacco. - Ebola Screening: : Patient negative for fever greater than or equal to 101.5 degrees Fahrenheit, and additional compatible Ebola Virus Disease symptoms Patient denies exposure to infectious person Patient denies travel to an Ebola-affected area in the 21 days before illness onset No symptoms or risks identified at this time. Screenin:49 Abuse screen: Denies threats or abuse. Nutritional screening: No deficits noted. em Tuberculosis screening: No symptoms or risk factors identified. Fall Risk Ambulatory Aid- None/Bed Rest/Nurse Assist (0 pts). Gait- Impaired (20 pts.). Mental Status- Overestimates/Forgets Limitations (15 pts.). Total Longoria Fall Scale indicates Low Risk Score (25-44 pts). Fall prevention measures have been instituted. Side Rails Up X 2 Frequent Obs/Assesments occuring Family Present and informed to notify staff if they need to leave bedside. Assessment: 11:45 General: Appears in no apparent distress. comfortable, Behavior is calm, cooperative, em Denies fever. Pain: Denies pain. Neuro: Level of Consciousness is awake, alert, obeys commands, Oriented to person, place, situation. Cardiovascular: Capillary refill < 3 seconds Patient's skin is warm and dry. Respiratory: Airway is patent Respiratory effort is even, unlabored, Respiratory pattern is regular, symmetrical. GI: Abdomen is obese, Bowel sounds present X 4 quads. Abd is soft and non tender X 4 quads. Patient currently denies nausea, vomiting, Parent/caregiver reports the patient having cholecystostomy tube placed, family reports tube was pulled out about 2 inches, mild green drainage noted in collection bulb. Derm: Skin is intact, is healthy with good turgor, Skin is pink, warm \T\ dry. Musculoskeletal: Capillary refill < 3 seconds. 13:31 Reassessment: Patient appears in no apparent distress at this time. Patient and/or em family updated on plan of care and expected duration. Pain level reassessed. Patient is alert, oriented x 3, equal unlabored respirations, skin warm/dry/pink. family at bedside. 14:00 Reassessment: wheeled to US via wheelchair. em 15:00 Reassessment: Patient appears in no apparent distress at this time. Patient and/or em family updated on plan of care and expected duration. Pain level reassessed. Patient is alert, oriented x 3, equal unlabored respirations, skin warm/dry/pink. 16:34 Reassessment: Patient appears in no apparent distress at this time. Patient and/or em family updated on plan of care and expected duration. Pain level reassessed. Patient is alert, oriented x 3, equal unlabored respirations, skin warm/dry/pink. Vital Signs: 11:45 BP 114 / 52; Pulse 79; Resp 18; Pulse Ox 96% on 3 lpm NC; Pain 0/10; em 13:00 BP 110 / 57; Pulse 72; Resp 18; Pulse Ox 99% on 3 lpm NC; Pain 0/10; em 14:38 BP 120 / 58; Pulse 82; Resp 16; Pulse Ox 96% on 3 lpm NC; Pain 0/10; em 16:58 BP 113 / 48; Pulse 81; Resp 18; Pulse Ox 99% on 3 lpm NC; Pain 0/10; em 17:34 BP 117 / 87; Pulse 84; Resp 18; Pulse Ox 96% on 3 lpm NC; em ED Course: 11:24 Patient arrived in ED. iw 11:28 Meet Johnson LVN is Primary Nurse. em 11:33 Manas Paredes NP is PHCP. pm1 11:34 Trino Villaseñor MD is Attending Physician. pm1 11:45 Arm band placed on. em 11:49 Patient has correct armband on for positive identification. Placed in gown. Bed in low em position. Call light in reach. Side rails up X2. Adult w/ patient. building rental superintendent on. Pulse ox on. NIBP on. 11:50 Triage completed. iw 12:37 US Abdomen Limited In Process Unspecified. EDMS 15:15 CT Abd/Pelvis - Without Contrast In Process Unspecified. EDMS 16:59 No provider procedures requiring assistance completed. Patient did not have IV access em during this emergency room visit. Administered Medications: No medications were administered Outcome: 16:54 Discharge ordered by . pm1 16:59 Discharged to home via ambulance. em 16:59 Condition: good 16:59 Discharge instructions given to patient, family, EMS, Instructed on discharge instructions, follow up and referral plans. Demonstrated understanding of instructions, follow-up care. 17:36 Patient left the ED. em Signatures: Dispatcher [employer] EDMS Johnson, Meet, METALLURGICAL TECHNICIAN METALLURGICAL TECHNICIAN em Cathy Loomis, ARCENIO RN iw Manas Paredes NP WIRELESS SALES MANAGER pm1 Corrections: (The following items were deleted from the chart) 11:49 11:29 Presenting complaint: EMS states: called out for pulled cholecystostomy tube that em was pulled out about 2 inches, procedure was done on , did not notify DrVladimir on what to do, pt denies pain, N/V, mild redness noted to surgical site em 14:22 11:45 PSHx: Cholecystectomy; em em 17:36 16:58 BP 113 / 48; Pulse 81bpm; Resp 18bpm; Pulse Ox 99% RA; Pain 0/10; em em
--- NOTE | 2019-03-23 16:55 | EDPHYS ---
Physician Documentation [facility] Name: Audra Gonzalez Age: 68 yrs Sex: Female : 1950 Arrival Date: 03/23/2019 Time: 11:24 Bed 20 Private MD: ED Physician Trino Villaseñor HPI: 03/23 21:53 This 68 yrs old Female presents to ER via EMS with complaints of pulled on pm1 cholecystostomy tube this morning. 21:53 Patient accidentally pulled on her cholecystostomy tube this AM. Daughter was concerned pm1 that it may not be in the gallbladder anymore because it moved about 4 cm out. Patient has nonoperative gallstones due to brain cancer. Told by surgeons that she would not survive anesthesia so her cholecystotomy is a permanent solution. the patient ripped the suture holding the tube in place. Onset: The symptoms/episode began/occurred this morning. The patient has not experienced similar symptoms in the past. Cholecystostomy tube place about 3 weeks ago by IR at [facility]. Historical: - Allergies: 11:51 No Known Allergies; em - Home Meds: 11:45 Biscolax 10 mg rectal supp PRN [Active]; citalopram 20 mg tab 1 tab once daily em [Active]; spironolactone 25 mg Oral tab 1 tab 2 times per day [Active]; cyclobenzaprine 10 mg Oral tab 1 tab 3 times per day [Active]; gabapentin 400 mg Oral cap 1 cap 2 times daily [Active]; lorazepam 1 mg Oral tab 1 tab every 4 hours PRN [Active]; metoprolol tartrate 100 mg Oral tab 1 tab once daily [Active]; morphine 100mg/5mL Oral CERP 0.5 mL every 2 hours PRN [Active]; Seroquel 100 mg Oral tab 1 tab at bedtime [Active]; tramadol 50 mg Oral tab 1 tab every 6 hours [Active]; - PMHx: 11:45 brain cancer; AVM; Hypertension; Depression; em - PSHx: 14:22 cholecystostomy; em - Immunization history:: Adult Immunizations up to date. - Social history:: Smoking status: Patient/guardian denies using tobacco. - Ebola Screening: : Patient negative for fever greater than or equal to 101.5 degrees Fahrenheit, and additional compatible Ebola Virus Disease symptoms Patient denies exposure to infectious person Patient denies travel to an Ebola-affected area in the 21 days before illness onset No symptoms or risks identified at this time. ROS: 21:53 Constitutional: Negative for fever, chills, and weight loss, Eyes: Negative for injury, pm1 pain, redness, and discharge, ENT: Negative for injury, pain, and discharge, Neck: Negative for injury, pain, and swelling, Cardiovascular: Negative for chest pain, palpitations, and edema, Respiratory: Negative for shortness of breath, cough, wheezing, and pleuritic chest pain, Abdomen/GI: Negative for abdominal pain, nausea, vomiting, diarrhea, and constipation, Back: Negative for injury and pain, MS/Extremity: Negative for injury and deformity, Skin: Negative for injury, rash, and discoloration, Neuro: Negative for headache, weakness, numbness, tingling, and seizure. Exam: 21:53 Constitutional: This is a well developed, well nourished patient who is awake, alert, pm1 and in no acute distress. Head/Face: Normocephalic, atraumatic. Chest/axilla: Normal chest wall appearance and motion. Nontender with no deformity. No lesions are appreciated. Cardiovascular: Regular rate and rhythm with a normal S1 and S2. No gallops, murmurs, or rubs. Normal PMI, no JVD. No pulse deficits. Respiratory: Lungs have equal breath sounds bilaterally, clear to auscultation and percussion. No rales, rhonchi or wheezes noted. No increased work of breathing, no retractions or nasal flaring. 21:53 Abdomen/GI: Inspection: obese Bowel sounds: normal, Palpation: abdomen is soft and non-tender, draining cholecystostomy tube present without any signs of cellulitis or drainage at ostomy location. Small skin tear present where suture was torn from skin. Vital Signs: 11:45 BP 114 / 52; Pulse 79; Resp 18; Pulse Ox 96% on 3 lpm NC; Pain 0/10; em 13:00 BP 110 / 57; Pulse 72; Resp 18; Pulse Ox 99% on 3 lpm NC; Pain 0/10; em 14:38 BP 120 / 58; Pulse 82; Resp 16; Pulse Ox 96% on 3 lpm NC; Pain 0/10; em 16:58 BP 113 / 48; Pulse 81; Resp 18; Pulse Ox 99% on 3 lpm NC; Pain 0/10; em 17:34 BP 117 / 87; Pulse 84; Resp 18; Pulse Ox 96% on 3 lpm NC; em Procedures: 21:58 Performed Sutured cholecystostomy tube in place with 3-0 Ethilon with sterile pm1 techinique. Patient tolerated well. Site cleansed with Betadine. 1 mL lidocaine 1% used for local anesthesia. MDM: 11:34 Patient medically screened. pm1 16:52 Data reviewed: vital signs. Data interpreted: Pulse oximetry: on room air is 96 %. pm1 Interpretation: normal. Counseling: I had a detailed discussion with the patient and/or guardian regarding: the historical points, exam findings, and any diagnostic results supporting the discharge/admit diagnosis, radiology results, the need for outpatient follow up, to return to the emergency department if symptoms worsen or persist or if there are any questions or concerns that arise at home. 03/23 11:55 Order name: US Abdomen Limited; Complete Time: 15:47 pm1 03/23 14:57 Order name: CT Abd/Pelvis - Without Contrast; Complete Time: 15:47 pm1 Administered Medications: No medications were administered Disposition: 03/23/19 16:54 Discharged to Home. Impression: Encounter for attention to cholecystostomy tube. - Condition is Stable. - Medication Reconciliation Form, Thank You Letter, Antibiotic Education, Prescription Opioid Use form. - Follow up: Emergency Department; When: As needed; Reason: Worsening of condition. Follow up: Private Physician; When: 2 - 3 days; Reason: Recheck today's complaints, Continuance of care, Re-evaluation by your physician. - Problem is new. - Symptoms have improved. Addendum: 03/25/2019 22:43 Co-signature as Attending Physician, Trino Villaseñor MD. g s Signatures: Dispatcher [employer] EDMS Meet Johnson, FIELD COORDINATOR FIELD COORDINATOR em [place], CLINICAL PRACTICE CONSULTANT CLINICAL PRACTICE CONSULTANT pm1 Trino Villaseñor MD MD Corrections: (The following items were deleted from the chart) 03/23 14:22 11:45 PSHx: Cholecystectomy; em em 16:56 16:54 03/23/2019 16:54 Discharged to Home. Impression: Encounter for attention to pm1 cystostomy. Condition is Stable. Forms are Medication Reconciliation Form, Thank You Letter, Antibiotic Education, Prescription Opioid Use. Follow up: Emergency Department; When: As needed; Reason: Worsening of condition. Follow up: Private Physician; When: 2 - 3 days; Reason: Recheck today's complaints, Continuance of care, Re-evaluation by your physician. Problem is new. Symptoms have improved. pm1 17:36 16:56 03/23/2019 16:54 Discharged to Home. Impression: Encounter for attention to em cholecystostomy tube. Condition is Stable. Forms are Medication Reconciliation Form, Thank You Letter, Antibiotic Education, Prescription Opioid Use. Follow up: Emergency Department; When: As needed; Reason: Worsening of condition. Follow up: Private Physician; When: 2 - 3 days; Reason: Recheck today's complaints, Continuance of care, Re-evaluation by your physician. Problem is new. Symptoms have improved. pm1
[2019-03-23 17:50] VITALS: BP 117/87; O2SAT 96
== END 2019-03-23 17:36 | disposition home or self-care (01) ==
LOC: ER 11:20
DX: Z43.8 Encounter for attention to other artificial openings (principal); I10 Essential (primary) hypertension; F32.9 Major depressive disorder, single episode, unspecified; Z85.841 Personal history of malignant neoplasm of brain; Z85.89 Personal history of malignant neoplasm of other organs and systems
CPT/HCPCS: 74176; 76705; 99284

== ENCOUNTER 2019-05-29 12:34 | Emergency (ER) | payer OTHER ==
--- OUTSIDE RECORDS SUMMARY | 2019-05-29 12:37 | XMS REPORT ---
:1950 Author Organization [facility] Address Formerly [facility] Dimas Manley [address] [place] [address] Care Team Providers Name Role Phone TOBY LAGUNAS Unavailable Unavailable Problems This patient has no known problems. Allergies, Adverse Reactions, Alerts This patient has no known allergies or adverse reactions. Medications This patient has no known medications. Results Test Description Test Time Test Comments Text Results Atomic Results Result Comments POCT-GLUCOSE METER 2019-03-02 13:14:00 Test Item Value Reference Range Comments POC-GLUCOSE METER (BEAKER) (test 151 mg/dL 70-110 TESTED AT [facility] [address] [facility] [id number] [address] [id number] 06:59:00 Test Item Value Reference Range Comments PHOSPHORUS (BEAKER) (test yzdu=154) 4.3 mg/dL 2.3-4.7 [id number] 06:59:00 Test Item Value Reference Range Comments MAGNESIUM (BEAKER) (test ilyi=045) 2.0 mg/dL 1.6-2.6 CBC W/PLT COUNT & AUTO [id number] 06:28:00 Test Item Value Reference Range Comments WHITE BLOOD CELL COUNT (BEAKER) (test imop=671) 13.0 K/ L 3.5-10.5 RED BLOOD CELL COUNT (BEAKER) (test ixgy=466) 3.83 M/ L 3.93-5.22 HEMOGLOBIN (BEAKER) (test kpcx=423) 10.8 GM/DL 11.2-15.7 HEMATOCRIT (BEAKER) (test eitn=945) 34.4 % 34.1-44.9 MEAN CORPUSCULAR VOLUME (BEAKER) (test yrjp=209) 89.8 fL 79.4-94.8 MEAN CORPUSCULAR HEMOGLOBIN (BEAKER) (test 28.2 pg 25.6-32.2 vauk=658) MEAN CORPUSCULAR HEMOGLOBIN CONC (BEAKER) (test 31.4 GM/DL 32.2-35.5 ovvq=855) RED CELL DISTRIBUTION WIDTH (BEAKER) (test 15.2 % 11.7-14.4 eflg=241) PLATELET COUNT (BEAKER) (test xutk=108) 435 K/CU MM 150-450 MEAN PLATELET VOLUME (BEAKER) (test szku=658) 9.0 fL 9.4-12.3 NUCLEATED RED BLOOD CELLS (BEAKER) (test 0 /100 WBC 0-0 ybgj=253) NEUTROPHILS RELATIVE PERCENT (BEAKER) (test 65 % cknu=365) LYMPHOCYTES RELATIVE PERCENT (BEAKER) (test 27 % epiw=846) MONOCYTES RELATIVE PERCENT (BEAKER) (test 6 % drhs=993) EOSINOPHILS RELATIVE PERCENT (BEAKER) (test 0 % vhse=711) BASOPHILS RELATIVE PERCENT (BEAKER) (test 1 % korb=316) NEUTROPHILS ABSOLUTE COUNT (BEAKER) (test 8.42 K/ L 1.56-6.13 esup=755) LYMPHOCYTES ABSOLUTE COUNT (BEAKER) (test 3.50 K/ L 1.18-3.74 hnai=356) MONOCYTES ABSOLUTE COUNT (BEAKER) (test 0.81 K/ L 0.24-0.36 velg=795) EOSINOPHILS ABSOLUTE COUNT (BEAKER) (test 0.00 K/ L 0.04-0.36 rzfd=046) BASOPHILS ABSOLUTE COUNT (BEAKER) (test 0.07 K/ L 0.01-0.08 sggv=449) IMMATURE GRANULOCYTES-RELATIVE PERCENT (BEAKER) 1 % 0-1 (test olve=4930) POCT-GLUCOSE [id number] 06:13:00 Test Item Value Reference Range Comments POC-GLUCOSE METER (BEAKER) 130 mg/dL 70-110 TESTED AT [address] (test tmwg=7279) [facility] [address] POCT-GLUCOSE [id number] 01:55:00 Test Item Value Reference Range Comments POC-GLUCOSE METER (BEAKER) 122 mg/dL 70-110 TESTED AT [address] (test eibn=1050) [facility] [address] POCT-GLUCOSE [id number] 00:26:00 Test Item Value Reference Range Comments POC-GLUCOSE METER (BEAKER) 131 mg/dL 70-110 TESTED AT [address] (test cjzl=5229) [place] [id number] POCT-GLUCOSE [id number] 16:48:00 Test Item Value Reference Range Comments POC-GLUCOSE METER (BEAKER) 101 mg/dL 70-110 TESTED AT [address] (test ahup=5658) [place] [address] BODY FLUID CULTURE + GRAM [id number] 13:32:00 Test Item Value Reference Range Comments CULTURE (BEAKER) (test 3+ Nelly glabrata sogm=5006) GRAM STAIN RESULT (BEAKER) (test <1+ WBCs wgcw=0164) GRAM STAIN RESULT (BEAKER) (test 1+ budding yeast enyh=08832) POCT-GLUCOSE [id number] 12:12:00 Test Item Value Reference Range Comments POC-GLUCOSE METER (BEAKER) 172 mg/dL 70-110 TESTED AT [address] (test ryys=7941) [place] [id number] POCT-GLUCOSE [id number] 08:02:00 Test Item Value Reference Range Comments POC-GLUCOSE METER (BEAKER) 126 mg/dL 70-110 TESTED AT [address] (test uajo=5796) [place] [address] [id number] 07:00:00 Test Item Value Reference Range Comments PHOSPHORUS (BEAKER) (test gese=063) 3.3 mg/dL 2.3-4.7 [id number] 07:00:00 Test Item Value Reference Range Comments MAGNESIUM (BEAKER) (test shtr=848) 1.9 mg/dL 1.6-2.6 CBC W/PLT COUNT & AUTO [id number] 06:24:00 Test Item Value Reference Range Comments WHITE BLOOD CELL COUNT (BEAKER) (test vrxr=534) 11.9 K/ L 3.5-10.5 RED BLOOD CELL COUNT (BEAKER) (test aclz=064) 3.88 M/ L 3.93-5.22 HEMOGLOBIN (BEAKER) (test tmde=967) 10.8 GM/DL 11.2-15.7 HEMATOCRIT (BEAKER) (test mtdo=072) 34.9 % 34.1-44.9 MEAN CORPUSCULAR VOLUME (BEAKER) (test ffwq=389) 89.9 fL 79.4-94.8 MEAN CORPUSCULAR HEMOGLOBIN (BEAKER) (test 27.8 pg 25.6-32.2 huaa=913) MEAN CORPUSCULAR HEMOGLOBIN CONC (BEAKER) (test 30.9 GM/DL 32.2-35.5 kehk=415) RED CELL DISTRIBUTION WIDTH (BEAKER) (test 15.1 % 11.7-14.4 qcqf=800) PLATELET COUNT (BEAKER) (test qngz=345) 404 K/CU MM 150-450 MEAN PLATELET VOLUME (BEAKER) (test avio=156) 8.9 fL 9.4-12.3 NUCLEATED RED BLOOD CELLS (BEAKER) (test 0 /100 WBC 0-0 tdyi=852) NEUTROPHILS RELATIVE PERCENT (BEAKER) (test 63 % hpol=972) LYMPHOCYTES RELATIVE PERCENT (BEAKER) (test 30 % gwnx=424) MONOCYTES RELATIVE PERCENT (BEAKER) (test 5 % aurp=059) EOSINOPHILS RELATIVE PERCENT (BEAKER) (test 0 % rrxi=685) BASOPHILS RELATIVE PERCENT (BEAKER) (test 1 % vkmx=534) NEUTROPHILS ABSOLUTE COUNT (BEAKER) (test 7.53 K/ L 1.56-6.13 gkkg=344) LYMPHOCYTES ABSOLUTE COUNT (BEAKER) (test 3.50 K/ L 1.18-3.74 hvqe=508) MONOCYTES ABSOLUTE COUNT (BEAKER) (test 0.64 K/ L 0.24-0.36 tiuu=440) EOSINOPHILS ABSOLUTE COUNT (BEAKER) (test 0.00 K/ L 0.04-0.36 fqsj=954) BASOPHILS ABSOLUTE COUNT (BEAKER) (test 0.08 K/ L 0.01-0.08 jfqc=944) IMMATURE GRANULOCYTES-RELATIVE PERCENT (BEAKER) 1 % 0-1 (test yguy=6366) POCT-GLUCOSE [id number] 20:45:00 Test Item Value Reference Range Comments POC-GLUCOSE METER (BEAKER) 158 mg/dL 70-110 TESTED AT [address] (test aqoo=7908) [facility] [address] POCT-GLUCOSE [id number] 11:32:00 Test Item Value Reference Range Comments POC-GLUCOSE METER (BEAKER) 147 mg/dL 70-110 TESTED AT [address] (test tnij=0415) [facility] [address] POCT-GLUCOSE [id number] 09:00:00 Test Item Value Reference Range Comments POC-GLUCOSE METER (BEAKER) 157 mg/dL 70-110 TESTED AT [place] [id number] [facility] (test fzri=3477) [facility] [address] [id number] 06:53:00 Test Item Value Reference Range Comments PHOSPHORUS (BEAKER) (test vnls=417) 2.1 mg/dL 2.3-4.7 [id number] 06:53:00 Test Item Value Reference Range Comments MAGNESIUM (BEAKER) (test jpwr=809) 2.0 mg/dL 1.6-2.6 CBC W/PLT COUNT & AUTO [id number] 06:02:00 Test Item Value Reference Range Comments WHITE BLOOD CELL COUNT (BEAKER) (test pyrc=030) 10.6 K/ L 3.5-10.5 RED BLOOD CELL COUNT (BEAKER) (test uhwj=981) 3.72 M/ L 3.93-5.22 HEMOGLOBIN (BEAKER) (test uztv=805) 10.3 GM/DL 11.2-15.7 HEMATOCRIT (BEAKER) (test yuhf=076) 33.3 % 34.1-44.9 MEAN CORPUSCULAR VOLUME (BEAKER) (test zlmh=413) 89.5 fL 79.4-94.8 MEAN CORPUSCULAR HEMOGLOBIN (BEAKER) (test 27.7 pg 25.6-32.2 vabf=397) MEAN CORPUSCULAR HEMOGLOBIN CONC (BEAKER) (test 30.9 GM/DL 32.2-35.5 cktz=809) RED CELL DISTRIBUTION WIDTH (BEAKER) (test 14.6 % 11.7-14.4 zuir=987) PLATELET COUNT (BEAKER) (test wtcb=553) 414 K/CU MM 150-450 MEAN PLATELET VOLUME (BEAKER) (test kfqf=586) 9.4 fL 9.4-12.3 NUCLEATED RED BLOOD CELLS (BEAKER) (test 0 /100 WBC 0-0 wcfd=921) NEUTROPHILS RELATIVE PERCENT (BEAKER) (test 62 % qxbf=372) LYMPHOCYTES RELATIVE PERCENT (BEAKER) (test 30 % uaig=028) MONOCYTES RELATIVE PERCENT (BEAKER) (test 7 % rmkk=726) EOSINOPHILS RELATIVE PERCENT (BEAKER) (test 0 % itlh=058) BASOPHILS RELATIVE PERCENT (BEAKER) (test 1 % jjys=562) NEUTROPHILS ABSOLUTE COUNT (BEAKER) (test 6.56 K/ L 1.56-6.13 ehtf=291) LYMPHOCYTES ABSOLUTE COUNT (BEAKER) (test 3.15 K/ L 1.18-3.74 shaq=797) MONOCYTES ABSOLUTE COUNT (BEAKER) (test 0.77 K/ L 0.24-0.36 samg=969) EOSINOPHILS ABSOLUTE COUNT (BEAKER) (test 0.00 K/ L 0.04-0.36 hczn=799) BASOPHILS ABSOLUTE COUNT (BEAKER) (test 0.07 K/ L 0.01-0.08 nlei=729) IMMATURE GRANULOCYTES-RELATIVE PERCENT (BEAKER) 1 % 0-1 (test godv=1343) POCT-GLUCOSE [id number] 21:39:00 Test Item Value Reference Range Comments POC-GLUCOSE METER (BEAKER) 132 mg/dL 70-110 TESTED AT [address] (test jdmq=2855) [place] [address] POCT-GLUCOSE [id number] 16:59:00 Test Item Value Reference Range Comments POC-GLUCOSE METER (BEAKER) 135 mg/dL 70-110 TESTED AT [address] (test kuuq=0177) [place] [address] POCT-GLUCOSE [id number] 12:17:00 Test Item Value Reference Range Comments POC-GLUCOSE METER (BEAKER) 179 mg/dL 70-110 TESTED AT [address] (test uivx=2070) [place] [address] LACTIC ACID, [id number] 09:29:00 Test Item Value Reference Range Comments LACTATE BLOOD VENOUS (2) (BEAKER) (test 1.3 mmol/L 0.5-2.2 bnun=1076) POCT-GLUCOSE [id number] 09:23:00 Test Item Value Reference Range Comments POC-GLUCOSE METER (BEAKER) 134 mg/dL 70-110 TESTED AT [address] (test xomt=5152) [place] [address] [id number] 06:58:00 Test Item Value Reference Range Comments PHOSPHORUS (BEAKER) (test wqmm=634) 2.3 mg/dL 2.3-4.7 [id number] 06:58:00 Test Item Value Reference Range Comments MAGNESIUM (BEAKER) (test uije=177) 2.0 mg/dL 1.6-2.6 CBC W/PLT COUNT & AUTO [id number] 06:30:00 Test Item Value Reference Range Comments WHITE BLOOD CELL COUNT (BEAKER) (test dmyh=281) 10.1 K/ L 3.5-10.5 RED BLOOD CELL COUNT (BEAKER) (test wxgw=255) 3.82 M/ L 3.93-5.22 HEMOGLOBIN (BEAKER) (test dalf=092) 10.6 GM/DL 11.2-15.7 HEMATOCRIT (BEAKER) (test xmcb=959) 35.6 % 34.1-44.9 MEAN CORPUSCULAR VOLUME (BEAKER) (test zjax=098) 93.2 fL 79.4-94.8 MEAN CORPUSCULAR HEMOGLOBIN (BEAKER) (test 27.7 pg 25.6-32.2 ayjp=234) MEAN CORPUSCULAR HEMOGLOBIN CONC (BEAKER) (test 29.8 GM/DL 32.2-35.5 evmw=813) RED CELL DISTRIBUTION WIDTH (BEAKER) (test 14.7 % 11.7-14.4 mdqj=253) PLATELET COUNT (BEAKER) (test mhsm=341) 362 K/CU MM 150-450 MEAN PLATELET VOLUME (BEAKER) (test yjpk=451) 9.1 fL 9.4-12.3 NUCLEATED RED BLOOD CELLS (BEAKER) (test 0 /100 WBC 0-0 gmxi=435) NEUTROPHILS RELATIVE PERCENT (BEAKER) (test 69 % yrna=605) LYMPHOCYTES RELATIVE PERCENT (BEAKER) (test 21 % esfs=157) MONOCYTES RELATIVE PERCENT (BEAKER) (test 8 % lhnv=901) EOSINOPHILS RELATIVE PERCENT (BEAKER) (test 0 % hxkf=510) BASOPHILS RELATIVE PERCENT (BEAKER) (test 1 % ekjf=369) NEUTROPHILS ABSOLUTE COUNT (BEAKER) (test 7.00 K/ L 1.56-6.13 lvak=965) LYMPHOCYTES ABSOLUTE COUNT (BEAKER) (test 2.11 K/ L 1.18-3.74 ogoi=946) MONOCYTES ABSOLUTE COUNT (BEAKER) (test 0.84 K/ L 0.24-0.36 wmpp=644) EOSINOPHILS ABSOLUTE COUNT (BEAKER) (test 0.00 K/ L 0.04-0.36 mphd=784) BASOPHILS ABSOLUTE COUNT (BEAKER) (test 0.06 K/ L 0.01-0.08 cfnz=277) IMMATURE GRANULOCYTES-RELATIVE PERCENT (BEAKER) 1 % 0-1 (test rhca=0926) POCT-GLUCOSE [id number] 23:20:00 Test Item Value Reference Range Comments POC-GLUCOSE METER (BEAKER) 185 mg/dL 70-110 TESTED AT [address] (test mxgg=6098) [place] [address] POCT-GLUCOSE [id number] 17:44:00 Test Item Value Reference Range Comments POC-GLUCOSE METER (BEAKER) 215 mg/dL 70-110 TESTED AT [address] (test enbw=2864) [place] [address] POCT-GLUCOSE [id number] 12:54:00 Test Item Value Reference Range Comments POC-GLUCOSE METER (BEAKER) 200 mg/dL 70-110 TESTED AT [address] (test ikpk=4270) [place] [address] POCT-GLUCOSE [id number] 08:42:00 Test Item Value Reference Range Comments POC-GLUCOSE METER (BEAKER) 167 mg/dL 70-110 TESTED AT [address] (test ttzl=9175) [place] [address] [id number] 02:43:00 Test Item Value Reference Range Comments PHOSPHORUS (BEAKER) (test opix=439) 1.5 mg/dL 2.3-4.7 TROPONIN [id number] 02:15:00 Test Item Value Reference Range Comments TROPONIN I (BEAKER) (test yirb=880) < ng/mL 0.00-0.03 Troponin I (TnI) levels must be interpreted in the context of the presenting symptoms and the clinical findings. Elevated TnI levels indicate myocardial damage, but are not specific for ischemic heart disease. Elevated TnI levels are seen in patients with other cardiac conditions (including myocarditis and congestive heart failure), and slight TnI elevations occur in patients with other conditions, including sepsis, renal failure, acidosis, acute neurological disease, and persistent tachyarrhythmia.[id number] 02:08:00 Test Item Value Reference Range Comments MAGNESIUM (BEAKER) (test wcla=746) 2.0 mg/dL 1.6-2.6 BASIC METABOLIC [id number] 02:08:00 Test Item Value Reference Range Comments SODIUM (BEAKER) (test 140 meq/L 136-145 fjah=373) POTASSIUM (BEAKER) (test 3.8 meq/L 3.5-5.1 mqfe=702) CHLORIDE (BEAKER) (test 106 meq/L 98-107 nhew=771) CO2 (BEAKER) (test 29 meq/L 22-29 wxbb=897) BLOOD UREA NITROGEN 5 mg/dL 7-21 (BEAKER) (test fjsz=434) CREATININE (BEAKER) (test 0.58 mg/dL 0.57-1.25 dhtf=885) GLUCOSE RANDOM (BEAKER) 110 mg/dL 70-105 (test zskv=612) CALCIUM (BEAKER) (test 8.3 mg/dL 8.4-10.2 scys=760) EGFR (BEAKER) (test 103 mL/min/1.73 sq m ESTIMATED GFR IS NOT oaar=8719) ACCURATE CREATININE CLEARANCE IN PREDICTING GLOMERULAR FILTRATION RATE. ESTIMATED GFR IS NOT APPLICABLE FOR DIALYSIS PATIENTS. CBC W/PLT COUNT & AUTO [id number] 01:44:00 Test Item Value Reference Range Comments WHITE BLOOD CELL COUNT (BEAKER) (test jihg=173) 10.7 K/ L 3.5-10.5 RED BLOOD CELL COUNT (BEAKER) (test bdax=710) 3.43 M/ L 3.93-5.22 HEMOGLOBIN (BEAKER) (test fmsw=397) 9.7 GM/DL 11.2-15.7 HEMATOCRIT (BEAKER) (test mifb=562) 30.8 % 34.1-44.9 MEAN CORPUSCULAR VOLUME (BEAKER) (test rspn=220) 89.8 fL 79.4-94.8 MEAN CORPUSCULAR HEMOGLOBIN (BEAKER) (test 28.3 pg 25.6-32.2 bwhr=129) MEAN CORPUSCULAR HEMOGLOBIN CONC (BEAKER) (test 31.5 GM/DL 32.2-35.5 mmhx=055) RED CELL DISTRIBUTION WIDTH (BEAKER) (test 14.6 % 11.7-14.4 wgka=468) PLATELET COUNT (BEAKER) (test lvvc=854) 387 K/CU MM 150-450 MEAN PLATELET VOLUME (BEAKER) (test dnwx=035) 9.3 fL 9.4-12.3 NUCLEATED RED BLOOD CELLS (BEAKER) (test 0 /100 WBC 0-0 hkfx=889) NEUTROPHILS RELATIVE PERCENT (BEAKER) (test 70 % jevr=127) LYMPHOCYTES RELATIVE PERCENT (BEAKER) (test 20 % xger=097) MONOCYTES RELATIVE PERCENT (BEAKER) (test 9 % oryq=981) EOSINOPHILS RELATIVE PERCENT (BEAKER) (test 0 % ydep=452) BASOPHILS RELATIVE PERCENT (BEAKER) (test 1 % oqbd=172) NEUTROPHILS ABSOLUTE COUNT (BEAKER) (test 7.44 K/ L 1.56-6.13 auny=541) LYMPHOCYTES ABSOLUTE COUNT (BEAKER) (test 2.12 K/ L 1.18-3.74 rtoe=829) MONOCYTES ABSOLUTE COUNT (BEAKER) (test 0.97 K/ L 0.24-0.36 bivj=333) EOSINOPHILS ABSOLUTE COUNT (BEAKER) (test 0.00 K/ L 0.04-0.36 qecv=740) BASOPHILS ABSOLUTE COUNT (BEAKER) (test 0.05 K/ L 0.01-0.08 eakd=486) IMMATURE GRANULOCYTES-RELATIVE PERCENT (BEAKER) 1 % 0-1 (test liet=8540) POCT-GLUCOSE [id number] 23:07:00 Test Item Value Reference Range Comments POC-GLUCOSE METER (BEAKER) 132 mg/dL 70-110 TESTED AT [address] (test xzao=8986) [facility] [address] U/S, DRAINAGE, W/ CATH [id number] 20:54:00Reason for exam:->Needs percutaneous cholecystostomy tubeFINAL REPORT PROCEDURE: Ultrasound-guided cholecystostomy catheter placement.Dose modulation, iterative reconstruction, and/or weight-based adjustment of the mA/kV was utilized to reduce the radiation dose to as low as reasonably achievable. INDICATION: Acute cholecystitis. COMPARISON: Outside facility CT from 02/22/2019 SEDATION: Intravenous moderate sedation was administered by radiology nursing and monitored under the direction of the undersigned radiologist. The patient's vital signs were monitored throughout the procedure and recorded in the patient' s medical record by radiology nursing. Total intraservice time of sedation was 25 minutes. MEDICATIONS: 1.5 mg Versed DESCRIPTION: After obtaining informed written consent, the patient was brought to the procedure room and placed in the supine position. Preliminary ultrasound scan revealed a distended gallbladder with stones. A clear path to the gallbladder was identified. The overlying skin was prepped and draped in theusual, sterile fashion and local 2% lidocaine anesthesia was administered. Under ultrasound guidance, a 7 [place] catheter was passed through the liver under trocar technique into the gallbladder. Approximately 120 mL of thick green and cloudy fluid was aspirated. The catheter was affixed to the skin and connected to suction bulb. Samples were sent for analysis. Post procedure scan showed no immediatecomplications. IMPRESSION: Successful transhepatic percutaneous cholecystostomy drainage catheter placement with a 7 [place] catheter. Signed: John Paul Campo MDRkarenort Verified Date/Time: 02/25/2019 20:54:16 Reading Location: [facility] ME Body Reading Room POCT-GLUCOSE [id number] 17:58:00 Test Item Value Reference Range Comments POC-GLUCOSE METER (BEAKER) 243 mg/dL 70-110 TESTED AT [address] (test lywy=3159) [facility] [address] POCT-GLUCOSE [id number] 12:14:00 Test Item Value Reference Range Comments POC-GLUCOSE METER (BEAKER) 90 mg/dL 70-110 TESTED AT [address] (test zosg=3133) [facility] [address] [id number] 06:48:00 Test Item Value Reference Range Comments PHOSPHORUS (BEAKER) (test rpbk=377) 2.0 mg/dL 2.3-4.7 [id number] 06:48:00 Test Item Value Reference Range Comments MAGNESIUM (BEAKER) (test aijn=575) 2.2 mg/dL 1.6-2.6 BASIC METABOLIC [id number] 06:48:00 Test Item Value Reference Range Comments SODIUM (BEAKER) (test 139 meq/L 136-145 nkgc=096) POTASSIUM (BEAKER) (test 4.1 meq/L 3.5-5.1 mrda=401) CHLORIDE (BEAKER) (test 108 meq/L 98-107 ursc=723) CO2 (BEAKER) (test 26 meq/L 22-29 jhwc=704) BLOOD UREA NITROGEN 8 mg/dL 7-21 (BEAKER) (test ldzp=685) CREATININE (BEAKER) (test 0.64 mg/dL 0.57-1.25 apjo=804) GLUCOSE RANDOM (BEAKER) 119 mg/dL 70-105 (test gvsw=250) CALCIUM (BEAKER) (test 8.4 mg/dL 8.4-10.2 jicg=279) EGFR (BEAKER) (test 92 mL/min/1.73 sq m ESTIMATED GFR IS NOT kbnx=3544) ACCURATE CREATININE CLEARANCE IN PREDICTING GLOMERULAR FILTRATION RATE. ESTIMATED GFR IS NOT APPLICABLE FOR DIALYSIS PATIENTS. PROTHROMBIN [id number] 06:44:00 Test Item Value Reference Range Comments PROTIME (BEAKER) (test rseg=942) 16.9 seconds 11.9-14.2 INR (BEAKER) (test agbn=549) 1.5 <=5.9 Effective 11/08/2018: PT Reference Range ChangeNew: 11.9-14.2 Previous: 11.7- 14.7RECOMMENDED COUMADIN/WARFARIN INR THERAPY RANGESSTANDARD DOSE: 2.0-3.0 Includes: PROPHYLAXIS for venous thrombosis, systemic embolization; TREATMENT for venous thrombosis and/or pulmonary embolus.HIGH RISK: Target INR is2.5-3.5 for patients wiht mechanical heart valves.CBC W/PLT COUNT & AUTO [id number] 06:35:00 Test Item Value Reference Range Comments WHITE BLOOD CELL COUNT (BEAKER) (test oqjg=373) 12.5 K/ L 3.5-10.5 RED BLOOD CELL COUNT (BEAKER) (test yomk=208) 3.34 M/ L 3.93-5.22 HEMOGLOBIN (BEAKER) (test eguy=091) 9.4 GM/DL 11.2-15.7 HEMATOCRIT (BEAKER) (test qeyh=277) 31.0 % 34.1-44.9 MEAN CORPUSCULAR VOLUME (BEAKER) (test wwai=597) 92.8 fL 79.4-94.8 MEAN CORPUSCULAR HEMOGLOBIN (BEAKER) (test 28.1 pg 25.6-32.2 ktai=470) MEAN CORPUSCULAR HEMOGLOBIN CONC (BEAKER) (test 30.3 GM/DL 32.2-35.5 gjxb=710) RED CELL DISTRIBUTION WIDTH (BEAKER) (test 14.9 % 11.7-14.4 loue=019) PLATELET COUNT (BEAKER) (test yoia=927) 381 K/CU MM 150-450 MEAN PLATELET VOLUME (BEAKER) (test furn=573) 9.4 fL 9.4-12.3 NUCLEATED RED BLOOD CELLS (BEAKER) (test 0 /100 WBC 0-0 kmfd=162) NEUTROPHILS RELATIVE PERCENT (BEAKER) (test 76 % yvdf=605) LYMPHOCYTES RELATIVE PERCENT (BEAKER) (test 13 % nlhv=683) MONOCYTES RELATIVE PERCENT (BEAKER) (test 9 % nyzc=064) EOSINOPHILS RELATIVE PERCENT (BEAKER) (test 0 % kmdu=431) BASOPHILS RELATIVE PERCENT (BEAKER) (test 1 % ruyc=448) NEUTROPHILS ABSOLUTE COUNT (BEAKER) (test 9.57 K/ L 1.56-6.13 gaoc=734) LYMPHOCYTES ABSOLUTE COUNT (BEAKER) (test 1.65 K/ L 1.18-3.74 pymu=126) MONOCYTES ABSOLUTE COUNT (BEAKER) (test 1.14 K/ L 0.24-0.36 ozga=786) EOSINOPHILS ABSOLUTE COUNT (BEAKER) (test 0.00 K/ L 0.04-0.36 hpsl=791) BASOPHILS ABSOLUTE COUNT (BEAKER) (test 0.06 K/ L 0.01-0.08 pdar=969) IMMATURE GRANULOCYTES-RELATIVE PERCENT (BEAKER) 1 % 0-1 (test seuv=0955) POCT-GLUCOSE [id number] 06:01:00 Test Item Value Reference Range Comments POC-GLUCOSE METER (BEAKER) 107 mg/dL 70-110 TESTED AT [facility] [address] [facility] (test shxa=9984) [facility] [address] U/S, ABDOMINAL, [id number] 03:14:00Reason for exam:->RUQ painFINAL REPORT INDICATION: RUQ pain COMPARISON: None. TECHNIQUE: Real-time transabdominal monroy scale and color Doppler ultrasound of the abdomen. FINDINGS:Liver: Size: 14.6cm. Echogenicity: Increased parenchymal echogenicity. Masses/lesions: None. Surface Nodularity: None. Intrahepatic bile ducts: Normal. Common bile duct: Not identified. MPV: 0.9cm. Gallbladder: Stones: Echogenic stone seen within the gallbladder neck. Sludge: None.Wall thickness: Evaluated Gallbladder is distended. Pericholecystic fluid: None. SonographicMurphy 's sign: Not obtained. Pancreas: Head and uncinate process: Not well-seen secondary to poor acoustic windowing. Body and tail: Not well-seen. Spleen: Size: 13.8cm. Echogenicity: Not well evaluated. Right kidney: Size : 10.8 x 4.7 x 4.2 cm. Parenchyma: Normal echogenicity. No cysts. No stones. Hydronephrosis: None. Left kidney:Not identified. Ascites: None. Regional Vasculature: The visible abdominal aorta, IVC and hepatic veins are patent. Additional findings: None. IMPRESSION: Examination limited due to patient toleration an early termination of the scan. Left kidney and common bile duct are not identified. Cholelithiasis with gallbladder distention and edematous wall concerning for acute cholecystitis. There is persistent clinical concern HIDA scan could beperformed for further evaluation. Slight interval increase in hepatic parenchymal echogenicity can be seen in setting of hepatic steatosis. Signed: Ary Gonzalez [facility] Verified Date/Time: 02/25/2019 03:14:55 POCT-GLUCOSE [id number] 00:07:00 Test Item Value Reference Range Comments POC-GLUCOSE METER (BEAKER) 119 mg/dL 70-110 TESTED AT [address] (test qlmt=8719) [facility] [address] RAD, CHEST, 1 VIEW, NON [id number] 00:05:00Reason for exam:->Cough, concern for aspirationShould this be performed at the bedside?->YesFINAL REPORT RAD, CHEST, 1 VIEW, NON DEPT INDICATION: Cough, concern for aspiration COMPARISON: None. FINDINGS: Portable frontal view of the chest. IMPRESSION: Support Lines: None. Lungs and pleura: Lungs are mildly hypoinflated with bronchovascular crowding. No airspace consolidation. No pneumothorax.Heart and mediastinum: Mildly enlarged heart and calcifications of the aortic arch. Additional findings: None. Signed: Destiny Vasques MDReport Verified Date/Time: 02/25/2019 00:05:51 Reading Location: [facility] C013V Neuro Reading Room 12: 05 AMPOCT-GLUCOSE [id number] 18:38:00 Test Item Value Reference Range Comments POC-GLUCOSE METER (BEAKER) 76 mg/dL 70-110 TESTED AT [address] (test uidi=8237) [place] [address] POCT-GLUCOSE [id number] 12:26:00 Test Item Value Reference Range Comments POC-GLUCOSE METER (BEAKER) 101 mg/dL 70-110 TESTED AT [address] (test zwed=0933) [place] [address] TROPONIN [id number] 10:57:00 Test Item Value Reference Range Comments TROPONIN I (BEAKER) (test rnnm=009) < ng/mL 0.00-0.03 Troponin I (TnI) levels must be interpreted in the context of the presenting symptoms and the clinical findings. Elevated TnI levels indicate myocardial damage, but are not specific for ischemic heart disease. Elevated TnI levels are seen in patients with other cardiac conditions (including myocarditis and congestive heart failure), and slight TnI elevations occur in patients with other conditions, including sepsis, renal failure, acidosis, acute neurological disease, and persistent tachyarrhythmia.POCT-GLUCOSE [id number] 06:34:00 Test Item Value Reference Range Comments POC-GLUCOSE METER (BEAKER) 109 mg/dL 70-110 TESTED AT [address] (test zluk=[id number]) [place] [address] B-TYPE NATRIURETIC FACTOR (BNP)2019-02-24 01:17:00 Test Item Value Reference Range Comments B-TYPE NATRIURETIC PEPTIDE (BEAKER) (test 255 pg/mL 0-100 dkxf=234) BASIC METABOLIC [id number] 01:12:00 Test Item Value Reference Range Comments SODIUM (BEAKER) (test 138 meq/L 136-145 ulhg=026) POTASSIUM (BEAKER) (test 3.7 meq/L 3.5-5.1 myer=538) CHLORIDE (BEAKER) (test 106 meq/L 98-107 yxes=154) CO2 (BEAKER) (test 24 meq/L 22-29 wiup=648) BLOOD UREA NITROGEN 10 mg/dL 7-21 (BEAKER) (test tnwg=029) CREATININE (BEAKER) (test 0.66 mg/dL 0.57-1.25 wtgi=162) GLUCOSE RANDOM (BEAKER) 136 mg/dL 70-105 (test jlnq=540) CALCIUM (BEAKER) (test 8.5 mg/dL 8.4-10.2 hqjc=570) EGFR (BEAKER) (test 89 mL/min/1.73 sq m ESTIMATED GFR IS NOT pqrl=6147) ACCURATE CREATININE CLEARANCE IN PREDICTING GLOMERULAR FILTRATION RATE. ESTIMATED GFR IS NOT APPLICABLE FOR DIALYSIS PATIENTS. CBC W/PLT COUNT & AUTO [id number] 00:53:00 Test Item Value Reference Range Comments WHITE BLOOD CELL COUNT (BEAKER) (test cqbq=851) 19.0 K/ L 3.5-10.5 RED BLOOD CELL COUNT (BEAKER) (test eiyz=959) 3.96 M/ L 3.93-5.22 HEMOGLOBIN (BEAKER) (test mstq=870) 10.9 GM/DL 11.2-15.7 HEMATOCRIT (BEAKER) (test hqoj=957) 36.0 % 34.1-44.9 MEAN CORPUSCULAR VOLUME (BEAKER) (test kxqc=222) 90.9 fL 79.4-94.8 MEAN CORPUSCULAR HEMOGLOBIN (BEAKER) (test 27.5 pg 25.6-32.2 mzhr=814) MEAN CORPUSCULAR HEMOGLOBIN CONC (BEAKER) (test 30.3 GM/DL 32.2-35.5 ylpe=367) RED CELL DISTRIBUTION WIDTH (BEAKER) (test 14.9 % 11.7-14.4 yxvb=073) PLATELET COUNT (BEAKER) (test apkz=932) 369 K/CU MM 150-450 MEAN PLATELET VOLUME (BEAKER) (test fqnb=651) 9.4 fL 9.4-12.3 NUCLEATED RED BLOOD CELLS (BEAKER) (test 0 /100 WBC 0-0 jhud=420) NEUTROPHILS RELATIVE PERCENT (BEAKER) (test 83 % gbdu=397) LYMPHOCYTES RELATIVE PERCENT (BEAKER) (test 9 % yfue=591) MONOCYTES RELATIVE PERCENT (BEAKER) (test 6 % jdvh=078) EOSINOPHILS RELATIVE PERCENT (BEAKER) (test 0 % kmrl=176) BASOPHILS RELATIVE PERCENT (BEAKER) (test 0 % nruc=368) NEUTROPHILS ABSOLUTE COUNT (BEAKER) (test 15.83 K/ L 1.56-6.13 hvec=380) LYMPHOCYTES ABSOLUTE COUNT (BEAKER) (test 1.65 K/ L 1.18-3.74 nhnc=326) MONOCYTES ABSOLUTE COUNT (BEAKER) (test 1.22 K/ L 0.24-0.36 xvxn=135) EOSINOPHILS ABSOLUTE COUNT (BEAKER) (test 0.00 K/ L 0.04-0.36 knsy=293) BASOPHILS ABSOLUTE COUNT (BEAKER) (test 0.07 K/ L 0.01-0.08 crto=116) IMMATURE GRANULOCYTES-RELATIVE PERCENT (BEAKER) 1 % 0-1 (test akrr=2178)
[2019-05-29] MEDS ORDERED: NA CHLORIDE 0.9% 1,000 ML ONE (14:08)
[2019-05-29 14:24] LABS: Absolute Lymphocytes (CBC) 2.1 K/uL (0.7-4.9); Basophils % 0.7 % (0-1.3); Lymphocytes % 13.2 % (15.3-44.8); MPV 7.8 fL (7.6-11.3); RBC Red Blood Cell Count 4.39 M/uL (3.86-4.86)
[2019-05-29 14:39] LABS: ALT/SGPT 19 U/L (12-78); AST/SGOT 14 U/L (15-37); Albumin 2.8 g/dL (3.4-5.0); Alkaline Phosphatase 92 U/L (45-117); BUN Blood Urea Nitrogen 15 mg/dL (7-18); Bicarbonate 40 mmol/L (21-32); Bilirubin Direct < 0.1 mg/dL (0-0.2); Bilirubin Total 0.3 mg/dL (0.2-1.0); Glucose Level 117 mg/dL (74-106); Lipase 56 U/L (73-393); Potassium 3.4 mmol/L (3.5-5.1); Protein, Total 8.3 g/dL (6.4-8.2); Sodium Level 137 mmol/L (136-145)
--- NOTE | 2019-05-29 14:40 | RAD REPORT ---
EXAM DESCRIPTION: US - Abdomen Exam Limited - 05/29/2019 2:11 pm CLINICAL HISTORY: Abdominal pain. COMPARISON: None. FINDINGS: 26 millimeter gallstone. Gallbladder wall is not thickened. The gallbladder is borderline distended. Common bile duct measures 7 millimeters A percutaneous drain traverses the gallbladder lumen. The tip of the drain is not well delineated. IMPRESSION: Cholelithiasis Borderline gallbladder distention Borderline dilatation of the common bile duct Percutaneous drain traverses the gallbladder lumen. The tip of the drain is not well delineated. If c linically indicated further evaluation with CT may be helpful
[2019-05-29] MEDS ORDERED: CEFTRIAXONE/SWI 1gm 1 GM/10 ML SYR ONE (15:39)
[2019-05-29] MEDS ORDERED: METRONIDAZOLE 500mg IVPB 500 MG/100 ML BAG IV ONE (15:39)
[2019-05-29 15:58] LABS: Urine Bacteria 20-50 /HPF (<20); Urine Culture Reflex Order NOT NEEDED; Urine Mucus 2+ /HPF (NONE SEEN); Urine RBC 20-50 /HPF (NONE SEEN)
[2019-05-29 16:46] LABS: Urine Blood 2+ (NEG); Urine Glucose NEGATIVE (NEG); Urine Protein TRACE (NEG)
--- NOTE | 2019-05-29 17:19 | RAD REPORT ---
EXAM DESCRIPTION: CT - Abdomen Pelvis Wo Contrast - 05/29/2019 5:10 pm CLINICAL HISTORY: ABD PAIN COMPARISON: Abdomen Pelvis Wo Contrast dated 03/23/2019; Abdomen Pelvis W Contrast dated 02/23/20 19; Abdomen Exam Limited dated 05/29/2019 TECHNIQUE: Axial [address] imaging of the abdomen and pelvis was performed without IV contrast. No IV contrast was given because of allergy, abnormal renal function, patient refusal or physician re quest. Oral contrast was given. All CT scans are performed using dose optimization technique as appropriate and may include automated exposure control or mA/KV adjustment according to patient size. FINDINGS: No suspicious findings in the lung bases. The liver, spleen and pancreas show no suspicious findings on non-contrast imaging. Pigtail drain has been pulled out of the gallbladder in this position along the lateral inferior linden in of the liver. Gallbladder is distended. Large gallstone is present in the gallbladder. Additional gallstones could be occult. Biliary tree is not dilated. No hydronephrosis or suspicious renal mass. No renal or ureteral calculi seen. Small bladder calculus is present. An obstructing UVJ calculus is not suspected. No bladder wall thickening or mass. No rig ht adrenal abnormality. Left adrenal mass has not changed from most recent CT imaging. Isodense renal masses and pyelonephritis cannot be excluded in the absence of IV contrast. No dilated bowel loops or bowel wall thickening. Moderate stool volume is present throughout the colo n. No acute colon process seen. No free air or pneumatosis. No abscess or free fluid collection. No h ernia, mass or bulky lymphadenopathy. Prominent bony degenerative changes are present. IMPRESSION: Biliary drainage catheter has been pulled out of the gallbladder and is positioned along the lateral inferior right lobe liver. There is a minimal amount of fluid and stranding adjacent to the pigtail of the catheter. Gallbladder is distended. At least 1 large gallstone is present. No biliary tree dilatation. Additional nonacute findings detailed in the body of the report. Full assessment is limited is the absence of IV contrast.
--- NOTE | 2019-05-29 17:43 | ER ---
Nurse's Notes [facility] Name: Audra Gonzalez Age: 68 yrs Sex: Female : 1950 Arrival Date: 05/29/2019 Time: 12:41 Bed 14 Private MD: Diagnosis: Cholelithiasis-with displaced PCT Presentation: 05/29 12:47 Presenting complaint: EMS states: pt was seen by Home Health nurse who reported that pt iw partially pulled out her biliary drain, it appeared to be draining, tried flushing it but was worried it might be clogged, wanted to get it checked. Transition of care: patient was not received from another setting of care. Onset of symptoms was May 29, 2019. Risk Assessment: Do you want to hurt yourself or someone else? Patient reports no desire to harm self or others. Initial Sepsis Screen: Does the patient meet any 2 criteria? HR > 90 bpm. Does the patient have a suspected source of infection? No. Patient's initial sepsis screen is negative. Care prior to arrival: Glucose check: 181. 12:47 Method Of Arrival: EMS: [facility] iw 12:47 Acuity: ELIZ 3 iw Historical: - Allergies: 12:57 No Known Allergies; iw - Home Meds: 12:55 Biscolax 10 mg rectal supp PRN [Active]; citalopram 20 mg tab 1 tab once daily iw [Active]; cyclobenzaprine 10 mg Oral tab 1 tab 3 times per day [Active]; gabapentin 400 mg Oral cap 1 cap 2 times daily [Active]; lorazepam 1 mg Oral tab 1 tab every 4 hours PRN [Active]; metoprolol tartrate 100 mg Oral tab 1 tab once daily [Active]; Seroquel 100 mg Oral tab 1 tab at bedtime [Active]; spironolactone 25 mg Oral tab 1 tab 2 times per day [Active]; tramadol 50 mg Oral tab 1 tab every 6 hours [Active]; 13:04 Methadone Oral [Active]; iw - PMHx: 12:55 brain cancer; AVM; Depression; Hypertension; iw - PSHx: 12:55 cholecystostomy; iw - Immunization history:: Adult Immunizations unknown. - Social history:: Patient/guardian denies using alcohol, street drugs, The patient lives with family, Smoking status: unknown. - Ebola Screening: : Patient negative for fever greater than or equal to 101.5 degrees Fahrenheit, and additional compatible Ebola Virus Disease symptoms Patient denies exposure to infectious person Patient denies travel to an Ebola-affected area in the 21 days before illness onset No symptoms or risks identified at this time. - Family history:: not pertinent. Screenin:39 Abuse screen: Denies threats or abuse. Denies injuries from another. Nutritional iw screening: No deficits noted. Tuberculosis screening: No symptoms or risk factors identified. 18:55 Fall Risk No fall in past 12 months (0 pts). Secondary diagnosis (15 points) confused. rv IV access (20 points). Ambulatory Aid- None/Bed Rest/Nurse Assist (0 pts). Gait- Normal/Bed Rest/Wheelchair (0 pts) Mental Status- Overestimates/Forgets Limitations (15 pts.). Total Longoria Fall Scale indicates Low Risk Score (25-44 pts). Assessment: 12:50 General: Appears uncomfortable, obese, Behavior is cooperative, drowsy. Pain: Complains iw of pain in back, buttocks, abdomen, right leg and left leg. 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 Cardiovascular: Denies chest pain, Patient's skin is warm and dry. Rhythm is irregular. Respiratory: Airway is patent Respiratory effort is even, labored, Respiratory pattern is regular, Breath sounds with crackles bilaterally. pt was 91 % on RA, placed on 3 L NC, up to 99%. GI: Abdomen is round obese, Bowel sounds present X 4 quads. Abd is soft X 4 quads. GI: pt has gallbladder tube in place since February , very small amount of drainage noted to drain , dressing appears wet , tegaderm in place. Derm: Skin is intact, is fragile, Skin is. Musculoskeletal: Range of motion: limited in left hip, left knee, right hip and right knee. 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 and was on iw hospice for 5 years, was taken off hospice and taken off morphine which daughter believes was making pt more sick and altered her mentation, has hx of chronic pain to hips, takes methadone and tramadol for pain control, pt was unable to have gallbladder removed so a drain was placed, daughter has been managing care of drain at home along with home health nurse, pt has hx of scratching and pulling at drain, daughter does not remember name of doctor who placed drain but pt was seen at [facility], daughter reports pt is usually tachycardiac and normally uses oxygen at home. 13:45 Reassessment: Dr. Altamirano at bedside to assess pt, daughter at bedside, states that pt iw seems more sleepy than usual, pt had her home meds and pain meds this morning, takes methadone and tramadol for pain, has chronic hip and back pain. 14:24 Reassessment: Tee at bedside for IV attempt. iw 15:00 Reassessment: ARCENIO Barrios at bedside for US IV, successful placement to [facility], family at beside, metallurgical lab technician at bedside with oral contrast. 15:10 Reassessment: Patient appears in no apparent distress at this time. pt sitting up in bed, drinking oral contrast, with assistance from daughter, IV fluids infusing to [facility]. 15:45 Reassessment: pt repositioned in bed, antibiotics given, fluids infusing, pt appears iw relaxed, lights dimmed, pt now with eyes closed , awaiting CT, pt has UTI, will be d/c home if Ct negative, daughter not at bedside, went to get food. 16:15 Reassessment: Patient appears in no apparent distress at this time. pt remains calm, iw appears to be sleeping, respirations even and unlabored , pt remains tachycardic at 109 bpm, all other VSS, awaiting CT. 17:28 Reassessment: Patient appears in no apparent distress at this time. daughter at bedside, pt repositioned in bed, Dr. Altamirano speaking with daughter about POC, pt will need to be transferred back to [facility] for replacement of biliary drain, CT reveals tube has been dislodged, daughter verbalizes understanding. 18:56 Reassessment: report called to Shante RG of [facility]. family updated. rv Vital Signs: 12:55 BP 100 / 67; Pulse 104; Resp 22 S; Temp 98.1; Pulse Ox 92% on R/A; iw 14:31 BP 97 / 64; Pulse 111; Resp 22 S; Pulse Ox 100% on 3 lpm NC; iw 15:02 BP 111 / 69; Pulse 112; Resp 20 S; Temp 98.2; Pulse Ox 100% on 3 lpm NC; iw 16:00 BP 109 / 87; Pulse 108; Resp 20 S; Pulse Ox 100% on 3 lpm NC; iw 16:35 BP 116 / 62; Pulse 104; Resp 20 S; Pulse Ox 100% on 3 lpm NC; iw 17:30 BP 96 / 74; Pulse 108; Resp 23; Pulse Ox 100% on R/A; rv 18:52 BP 97 / 65; Pulse 109; Resp 22; Pulse Ox 97% ; rv ED Course: 12:41 Patient arrived in ED. iw 12:51 Triage completed. iw 12:55 Arm band placed on. iw 12:55 Missed attempt(s): 24 gauge in left wrist. Bleeding controlled, band aid applied, iw catheter tip intact. 12:57 Cathy Loomis, RN is Primary Nurse. iw 13:02 Reed Altamirano MD is Attending Physician. ma2 13:55 Initial lab(s) drawn, by concrete mixing plant laborer, sent to lab. iw 15:00 Inserted Accessed peripheral vein via ultrasound, utilizing dynamic ultrasound iw technique using 18G Sureflo IV catheter per hospital protocol. Clean \T\ dry. Good blood return. Flushes easily. IV inserted by ARCENIO Barrios. 18:53 No provider procedures requiring assistance completed. Patient transferred, IV remains rv in place. 18:54 Patient has correct armband on for positive identification. Bed in low position. Call rv light in reach. Side rails up X2. Adult w/ patient. equipment monitor phototypesetting on. Pulse ox on. NIBP on. Administered Medications: 15:34 Drug: Rocephin 1 grams Route: IV; Rate: calculated rate; Site: right antecubital; iw 18:55 Follow up: IV Status: Completed infusion rv 15:45 Drug: Flagyl 500 mg Volume: 100 ml; Route: IVPB; Rate: 200 ml/hr; Infused Over: 30 iw mins; Site: right antecubital; 16:45 Follow up: IV Status: Completed infusion iw 15:46 Drug: NS 0.9% 1000 ml Route: IV; Rate: 1 bolus; Site: right antecubital; iw 17:20 Follow up: IV Status: Completed infusion iw Outcome: 17:41 ER care complete, transfer ordered by . ma2 18:54 Transferred by ground EMS to [facility], X-rays sent w/ patient. rv 18:54 Condition: stable 18:54 Instructed on the need for transfer. 19:03 Patient left the ED. rv Signatures: Cathy Loomis RN RN iw Reed Altamirano MD MD ma2 Lucas Norwood RN RN rv Corrections: (The following items were deleted from the chart) 13:03 12:55 Home Meds: morphine 100mg/5mL Oral CERP 0.5 mL every 2 hours PRN; chad bonilla
--- NOTE | 2019-05-29 17:43 | EDPHYS ---
Physician Documentation [facility] Name: Audra Gonzalez Age: 68 yrs Sex: Female : 1950 Arrival Date: 05/29/2019 Time: 12:41 Bed 14 Private MD: ED Physician Reed Altamirano HPI: 05/29 17:35 This 68 yrs old Female presents to ER via EMS with complaints of Biliary ma2 drain displaced. 17:35 The patient presents with abdominal pain. Onset: The symptoms/episode began/occurred ma2 suddenly, 2 hour(s) ago. Associated signs and symptoms: Pertinent negatives: anorexia, constipation, dysuria, headache, vaginal discharge. Severity of pain: At its worst the pain was mild in the emergency department the pain is unchanged. The patient has not experienced similar symptoms in the past. Historical: - Allergies: 12:57 No Known Allergies; iw - Home Meds: 12:55 Biscolax 10 mg rectal supp PRN [Active]; citalopram 20 mg tab 1 tab once daily iw [Active]; cyclobenzaprine 10 mg Oral tab 1 tab 3 times per day [Active]; gabapentin 400 mg Oral cap 1 cap 2 times daily [Active]; lorazepam 1 mg Oral tab 1 tab every 4 hours PRN [Active]; metoprolol tartrate 100 mg Oral tab 1 tab once daily [Active]; Seroquel 100 mg Oral tab 1 tab at bedtime [Active]; spironolactone 25 mg Oral tab 1 tab 2 times per day [Active]; tramadol 50 mg Oral tab 1 tab every 6 hours [Active]; 13:04 Methadone Oral [Active]; iw - PMHx: 12:55 brain cancer; AVM; Depression; Hypertension; iw - PSHx: 12:55 cholecystostomy; iw - Immunization history:: Adult Immunizations unknown. - Social history:: Patient/guardian denies using alcohol, street drugs, The patient lives with family, Smoking status: unknown. - Ebola Screening: : Patient negative for fever greater than or equal to 101.5 degrees Fahrenheit, and additional compatible Ebola Virus Disease symptoms Patient denies exposure to infectious person Patient denies travel to an Ebola-affected area in the 21 days before illness onset No symptoms or risks identified at this time. - Family history:: not pertinent. ROS: 17:35 Constitutional: Negative for fever, chills, and weight loss. ma2 17:35 All other systems are negative. 17:35 Unable to obtain ROS due to altered mental status, baseline dementia. Exam: 17:35 Constitutional: This is a well developed, well nourished patient who is awake, alert, ma2 and in no acute distress. Chest/axilla: Normal chest wall appearance and motion. Nontender with no deformity. No lesions are appreciated. Cardiovascular: Regular rate and rhythm with a normal S1 and S2. No gallops, murmurs, or rubs. Normal PMI, no JVD. No pulse deficits. Respiratory: Lungs have equal breath sounds bilaterally, clear to auscultation and percussion. No rales, rhonchi or wheezes noted. No increased work of breathing, no retractions or nasal flaring. Abdomen/GI: PCT drain is not draining, skin around is dry, sutur is not there. Soft, mildly RUQ -tender, with normal bowel sounds. mild distension or tympany. No guarding or rebound. No evidence of tenderness throughout. MS/ Extremity: Pulses equal, no cyanosis. Neurovascular intact. Full, normal range of motion. Neuro: Awake and alert, GCS 15, oriented to person, place, time, and situation. Cranial nerves II-XII grossly intact. Motor strength 5/5 in all extremities. Sensory grossly intact. Cerebellar exam normal. Normal gait. Vital Signs: 12:55 BP 100 / 67; Pulse 104; Resp 22 S; Temp 98.1; Pulse Ox 92% on R/A; iw 14:31 BP 97 / 64; Pulse 111; Resp 22 S; Pulse Ox 100% on 3 lpm NC; iw 15:02 BP 111 / 69; Pulse 112; Resp 20 S; Temp 98.2; Pulse Ox 100% on 3 lpm NC; iw 16:00 BP 109 / 87; Pulse 108; Resp 20 S; Pulse Ox 100% on 3 lpm NC; iw 16:35 BP 116 / 62; Pulse 104; Resp 20 S; Pulse Ox 100% on 3 lpm NC; iw 17:30 BP 96 / 74; Pulse 108; Resp 23; Pulse Ox 100% on R/A; rv 18:52 BP 97 / 65; Pulse 109; Resp 22; Pulse Ox 97% ; rv MDM: 13:02 Patient medically screened. id2 17:35 Differential diagnosis: has SIRS, acute briana, vs tube displacement, vs other abdominal ma2 infection. Data reviewed: vital signs, nurses notes. Counseling: I had a detailed discussion with the patient and/or guardian regarding: the historical points, exam findings, and any diagnostic results supporting the discharge/admit diagnosis, the presence of at least one elevated blood pressure reading (>120/80) during this emergency department visit, the need to transfer to another facility. ED course: pct is displaced on ct scan she has distended g bladder, w stones, + SIRS, we will emergently transfer to [facility] as the drain was placed there and nither GI team or gen srug in our hospital perfom this procedure, will emergently transfer for continuity of care and higher level of care . 05/29 13:04 Order name: Basic Metabolic Panel [facility] 05/29 13:04 Order name: CBC with Diff [facility] 05/29 13:04 Order name: Creatinine for Radiology [facility] 05/29 13:04 Order name: Hepatic Function [facility] 05/29 13:04 Order name: Lipase [facility] 05/29 13:51 Order name: AMMONIA [facility] 05/29 14:27 Order name: CBC with Automated Diff; Complete Time: 14:52 EDMS 05/29 14:41 Order name: Basic Metabolic Panel; Complete Time: 14:52 EDMS 05/29 14:41 Order name: Liver (Hepatic) Function; Complete Time: 14:52 EDMS 05/29 14:41 Order name: Lipase; Complete Time: 14:52 EDMS 05/29 14:41 Order name: Creatinine (Radiology Only); Complete Time: 14:52 EDMS 05/29 14:44 Order name: Ammonia; Complete Time: 14:52 EDMS 05/29 15:34 Order name: Urine Culture 05/29 15:34 Order name: Urine Microscopic Only 05/29 13:04 Order name: IV Saline Lock; Complete Time: 15:10 [facility] 05/29 13:04 Order name: Labs collected and sent; Complete Time: 14:36 [facility] 05/29 13:04 Order name: US Abdomen Limited [facility] 05/29 13:51 Order name: Urine Dipstick-Ancillary (obtain specimen); Complete Time: 15:32 [facility] 05/29 14:52 Order name: US; Complete Time: 14:52 EDMS 05/29 14:56 Order name: CT Abd/Pelvis - Without Cont (PO Contrast Only) [facility] 05/29 15:36 Order name: Urine Dipstick--Ancillary (enter results) ss 05/29 15:59 Order name: Urine Microscopic Only; Complete Time: 15:59 EDMS 05/29 16:47 Order name: Urine Dipstick-Ancillary; Complete Time: 16:48 EDMS 05/29 17:27 Order name: CT; Complete Time: 17:34 EDMS Administered Medications: 15:34 Drug: Rocephin 1 grams Route: IV; Rate: calculated rate; Site: right antecubital; iw 18:55 Follow up: IV Status: Completed infusion rv 15:45 Drug: Flagyl 500 mg Volume: 100 ml; Route: IVPB; Rate: 200 ml/hr; Infused Over: 30 iw mins; Site: right antecubital; 16:45 Follow up: IV Status: Completed infusion iw 15:46 Drug: NS 0.9% 1000 ml Route: IV; Rate: 1 bolus; Site: right antecubital; iw 17:20 Follow up: IV Status: Completed infusion iw Disposition: 05/29/19 17:41 Transfer ordered to [facility]. Diagnosis is Cholelithiasis - with displaced PCT . - Reason for transfer: Higher level of care. - Accepting physician is accepted by Dr. Lion and dr. reyes. - Condition is Stable. - Problem is new. - Symptoms are unchanged. Signatures: Dispatcher [employer] Cathy Merchant RN RN Reed Altamirano MD MD id2 Lucas Norwood RN RN rv Corrections: (The following items were deleted from the chart) 13:03 12:55 Home Meds: morphine 100mg/5mL Oral CERP 0.5 mL every 2 hours PRN; iw 18:09 17:41 05/29/2019 17:41 Transfer ordered to [facility]. Diagnosis is ma2 Cholelithiasis - with displaced PCT . Reason for transfer: Higher level of care. Accepting physician is OSH. Condition is Stable. Problem is new. Symptoms are unchanged. [facility] 18:20 18:09 05/29/2019 17:41 Transfer ordered to [facility]. Diagnosis is ma2 Cholelithiasis - with displaced PCT . Reason for transfer: Higher level of care. Accepting physician is accepted by Dr. Lion. Condition is Stable. Problem is new. Symptoms are unchanged. ma2 19:03 18:20 05/29/2019 17:41 Transfer ordered to [facility]. Diagnosis is rv Cholelithiasis - with displaced PCT . Reason for transfer: Higher level of care. Accepting physician is accepted by Dr. Lion and dr. reyes. Condition is Stable. Problem is new. Symptoms are unchanged. ma2
[2019-05-29 19:14] VITALS: TEMP 98.2
[2019-05-29 19:20] VITALS: BP 97/65; O2SAT 97
== END 2019-05-29 19:03 | disposition short-term general hospital (02) ==
LOC: ER 12:34
DX: K80.20 Calculus of gallbladder without cholecystitis without obstruction (principal); I10 Essential (primary) hypertension; F32.9 Major depressive disorder, single episode, unspecified; Z85.841 Personal history of malignant neoplasm of brain
CPT/HCPCS: 87088; 85025; 87086; 80048; 36415; 82140; 80076; 83690; 74176; 76705; J0696; J7030; 81003; 81015; 87077; 87186; 96365; 96366; 99285

== ENCOUNTER 2019-08-26 09:13 | Inpatient (IN) | payer OTHER ==
--- OUTSIDE RECORDS SUMMARY | 2019-08-26 09:17 | XMS REPORT ---
:1950 Author Organization [facility] Address [facility] [address] [place] [address] Care Team Providers Name Role Phone EMREPAYTON ADDI LUNSFORD Unavailable Unavailable TOBY LAGUNAS Unavailable Unavailable Problems This patient has no known problems. Allergies, Adverse Reactions, Alerts This patient has no known allergies or adverse reactions. Medications This patient has no known medications. Results Test Description Test Time Test Comments Text Results Atomic Results Result Comments MAGNESIUM 2019-06-01 06:38:00 Test Item Value Reference Range Comments MAGNESIUM (BEAKER) (test pjno=547) 2.4 mg/dL 1.6-2.6 BASIC METABOLIC [id number] 06:38:00 Test Item Value Reference Range Comments SODIUM (BEAKER) (test 137 meq/L 136-145 mxyj=020) POTASSIUM (BEAKER) (test 4.1 meq/L 3.5-5.1 lxsu=393) CHLORIDE (BEAKER) (test 99 meq/L 98-107 srvn=360) CO2 (BEAKER) (test 29 meq/L 22-29 hmtx=823) BLOOD UREA NITROGEN 6 mg/dL 7-21 (BEAKER) (test rpfr=075) CREATININE (BEAKER) (test 0.61 mg/dL 0.57-1.25 nraq=984) GLUCOSE RANDOM (BEAKER) 163 mg/dL 70-105 (test mfux=859) CALCIUM (BEAKER) (test 8.1 mg/dL 8.4-10.2 anfu=545) EGFR (BEAKER) (test 97 mL/min/1.73 sq m ESTIMATED GFR IS NOT xhcx=6301) ACCURATE CREATININE CLEARANCE IN PREDICTING GLOMERULAR FILTRATION RATE. ESTIMATED GFR IS NOT APPLICABLE FOR DIALYSIS PATIENTS. HEPATIC FUNCTION [id number] 06:38:00 Test Item Value Reference Range Comments TOTAL PROTEIN (BEAKER) (test xmqo=248) 6.5 gm/dL 6.0-8.3 ALBUMIN (BEAKER) (test ibre=6201) 3.0 g/dL 3.5-5.0 BILIRUBIN TOTAL (BEAKER) (test hgws=793) 0.2 mg/dL 0.2-1.2 BILIRUBIN DIRECT (BEAKER) (test idrb=423) 0.2 mg/dL 0.1-0.5 ALKALINE PHOSPHATASE (BEAKER) (test pxxb=118) 72 U/L 40-150 AST (SGOT) (BEAKER) (test gboa=262) 12 U/L 5-34 ALT (SGPT) (BEAKER) (test eeyq=199) 10 U/L 6-55 CBC W/PLT COUNT & AUTO [id number] 06:21:00 Test Item Value Reference Range Comments WHITE BLOOD CELL COUNT (BEAKER) (test ulnz=087) 12.2 K/ L 3.5-10.5 RED BLOOD CELL COUNT (BEAKER) (test bksd=887) 3.53 M/ L 3.93-5.22 HEMOGLOBIN (BEAKER) (test ewol=821) 9.6 GM/DL 11.2-15.7 HEMATOCRIT (BEAKER) (test gyke=729) 33.1 % 34.1-44.9 MEAN CORPUSCULAR VOLUME (BEAKER) (test jktr=962) 93.8 fL 79.4-94.8 MEAN CORPUSCULAR HEMOGLOBIN (BEAKER) (test 27.2 pg 25.6-32.2 bseo=306) MEAN CORPUSCULAR HEMOGLOBIN CONC (BEAKER) (test 29.0 GM/DL 32.2-35.5 xogm=820) RED CELL DISTRIBUTION WIDTH (BEAKER) (test 14.7 % 11.7-14.4 wxtq=963) PLATELET COUNT (BEAKER) (test egek=932) 351 K/CU MM 150-450 MEAN PLATELET VOLUME (BEAKER) (test muzl=976) 9.4 fL 9.4-12.3 NUCLEATED RED BLOOD CELLS (BEAKER) (test 0 /100 WBC 0-0 wfil=553) NEUTROPHILS RELATIVE PERCENT (BEAKER) (test 73 % sxci=429) LYMPHOCYTES RELATIVE PERCENT (BEAKER) (test 20 % ahop=350) MONOCYTES RELATIVE PERCENT (BEAKER) (test 6 % gwwc=907) EOSINOPHILS RELATIVE PERCENT (BEAKER) (test 0 % fuhi=272) BASOPHILS RELATIVE PERCENT (BEAKER) (test 1 % svsj=601) NEUTROPHILS ABSOLUTE COUNT (BEAKER) (test 8.86 K/ L 1.56-6.13 yyje=165) LYMPHOCYTES ABSOLUTE COUNT (BEAKER) (test 2.42 K/ L 1.18-3.74 bffo=829) MONOCYTES ABSOLUTE COUNT (BEAKER) (test 0.73 K/ L 0.24-0.36 dpjm=763) EOSINOPHILS ABSOLUTE COUNT (BEAKER) (test 0.00 K/ L 0.04-0.36 bvah=361) BASOPHILS ABSOLUTE COUNT (BEAKER) (test 0.06 K/ L 0.01-0.08 zkvo=753) IMMATURE GRANULOCYTES-RELATIVE PERCENT (BEAKER) 1 % 0-1 (test pudi=1954) POCT-GLUCOSE [id number] 11:19:00 Test Item Value Reference Range Comments POC-GLUCOSE METER (BEAKER) 131 mg/dL 70-110 : TESTED AT [address] (test hvxh=4579) [facility], [address]: Outpatient Phlebotomist/Front End Drupal Developer QD=[id number] for CHASE ROPER CBC W/PLT COUNT & AUTO [id number] 06:51:00 Test Item Value Reference Range Comments WHITE BLOOD CELL COUNT (BEAKER) (test hfcx=655) 14.9 K/ L 3.5-10.5 RED BLOOD CELL COUNT (BEAKER) (test mtoh=602) 3.83 M/ L 3.93-5.22 HEMOGLOBIN (BEAKER) (test jeyh=381) 10.5 GM/DL 11.2-15.7 HEMATOCRIT (BEAKER) (test kbcb=755) 35.4 % 34.1-44.9 MEAN CORPUSCULAR VOLUME (BEAKER) (test yfsf=917) 92.4 fL 79.4-94.8 MEAN CORPUSCULAR HEMOGLOBIN (BEAKER) (test 27.4 pg 25.6-32.2 vexa=028) MEAN CORPUSCULAR HEMOGLOBIN CONC (BEAKER) (test 29.7 GM/DL 32.2-35.5 cvfa=869) RED CELL DISTRIBUTION WIDTH (BEAKER) (test 14.6 % 11.7-14.4 acyu=682) PLATELET COUNT (BEAKER) (test xcig=859) 380 K/CU MM 150-450 MEAN PLATELET VOLUME (BEAKER) (test kism=258) 9.7 fL 9.4-12.3 NUCLEATED RED BLOOD CELLS (BEAKER) (test 0 /100 WBC 0-0 idtk=351) NEUTROPHILS RELATIVE PERCENT (BEAKER) (test 77 % bxte=915) LYMPHOCYTES RELATIVE PERCENT (BEAKER) (test 16 % bmgq=562) MONOCYTES RELATIVE PERCENT (BEAKER) (test 6 % kzkm=997) EOSINOPHILS RELATIVE PERCENT (BEAKER) (test 0 % wirm=432) BASOPHILS RELATIVE PERCENT (BEAKER) (test 1 % lxmf=493) NEUTROPHILS ABSOLUTE COUNT (BEAKER) (test 11.39 K/ L 1.56-6.13 bwtg=379) LYMPHOCYTES ABSOLUTE COUNT (BEAKER) (test 2.35 K/ L 1.18-3.74 kpfj=685) MONOCYTES ABSOLUTE COUNT (BEAKER) (test 0.93 K/ L 0.24-0.36 gehu=312) EOSINOPHILS ABSOLUTE COUNT (BEAKER) (test 0.00 K/ L 0.04-0.36 wenj=306) BASOPHILS ABSOLUTE COUNT (BEAKER) (test 0.08 K/ L 0.01-0.08 mcel=828) IMMATURE GRANULOCYTES-RELATIVE PERCENT (BEAKER) 1 % 0-1 (test uyye=5316) [id number] 17:43:00 Test Item Value Reference Range Comments POTASSIUM (BEAKER) (test 4.7 meq/L 3.5-5.1 Specimen slightly hemolyzed yrhw=249) [id number] 05:50:00 Test Item Value Reference Range Comments MAGNESIUM (BEAKER) (test fylj=545) 2.0 mg/dL 1.6-2.6 BASIC METABOLIC [id number] 05:50:00 Test Item Value Reference Range Comments SODIUM (BEAKER) (test 140 meq/L 136-145 uqbb=656) POTASSIUM (BEAKER) (test 2.9 meq/L 3.5-5.1 qoep=521) CHLORIDE (BEAKER) (test 93 meq/L 98-107 imoj=149) CO2 (BEAKER) (test 39 meq/L 22-29 xbnk=761) BLOOD UREA NITROGEN 12 mg/dL 7-21 (BEAKER) (test hixh=892) CREATININE (BEAKER) (test 0.75 mg/dL 0.57-1.25 tjcg=817) GLUCOSE RANDOM (BEAKER) 155 mg/dL 70-105 (test ktxs=748) CALCIUM (BEAKER) (test 8.4 mg/dL 8.4-10.2 eebz=767) EGFR (BEAKER) (test 77 mL/min/1.73 sq m ESTIMATED GFR IS NOT eblj=3917) ACCURATE CREATININE CLEARANCE IN PREDICTING GLOMERULAR FILTRATION RATE. ESTIMATED GFR IS NOT APPLICABLE FOR DIALYSIS PATIENTS. HEPATIC FUNCTION [id number] 05:50:00 Test Item Value Reference Range Comments TOTAL PROTEIN (BEAKER) (test pyum=524) 7.0 gm/dL 6.0-8.3 ALBUMIN (BEAKER) (test wyqh=3491) 3.2 g/dL 3.5-5.0 BILIRUBIN TOTAL (BEAKER) (test zpxu=023) 0.3 mg/dL 0.2-1.2 BILIRUBIN DIRECT (BEAKER) (test rtwc=063) 0.2 mg/dL 0.1-0.5 ALKALINE PHOSPHATASE (BEAKER) (test hvym=447) 78 U/L 40-150 AST (SGOT) (BEAKER) (test ilec=943) 9 U/L 5-34 ALT (SGPT) (BEAKER) (test tbau=686) 10 U/L 6-55 CBC W/PLT COUNT & AUTO [id number] 05:42:00 Test Item Value Reference Range Comments WHITE BLOOD CELL COUNT (BEAKER) (test csqy=096) 14.3 K/ L 3.5-10.5 RED BLOOD CELL COUNT (BEAKER) (test eqon=142) 3.93 M/ L 3.93-5.22 HEMOGLOBIN (BEAKER) (test dcok=448) 10.9 GM/DL 11.2-15.7 HEMATOCRIT (BEAKER) (test shpj=063) 35.5 % 34.1-44.9 MEAN CORPUSCULAR VOLUME (BEAKER) (test wsbq=487) 90.3 fL 79.4-94.8 MEAN CORPUSCULAR HEMOGLOBIN (BEAKER) (test 27.7 pg 25.6-32.2 pyrp=022) MEAN CORPUSCULAR HEMOGLOBIN CONC (BEAKER) (test 30.7 GM/DL 32.2-35.5 sjwx=741) RED CELL DISTRIBUTION WIDTH (BEAKER) (test 14.2 % 11.7-14.4 gdpq=086) PLATELET COUNT (BEAKER) (test snxg=542) 377 K/CU MM 150-450 MEAN PLATELET VOLUME (BEAKER) (test dqmt=324) 9.7 fL 9.4-12.3 NUCLEATED RED BLOOD CELLS (BEAKER) (test 0 /100 WBC 0-0 bjsw=596) NEUTROPHILS RELATIVE PERCENT (BEAKER) (test 79 % priq=785) LYMPHOCYTES RELATIVE PERCENT (BEAKER) (test 13 % ogvh=253) MONOCYTES RELATIVE PERCENT (BEAKER) (test 8 % jwvo=843) EOSINOPHILS RELATIVE PERCENT (BEAKER) (test 0 % qgsd=084) BASOPHILS RELATIVE PERCENT (BEAKER) (test 0 % eyut=242) NEUTROPHILS ABSOLUTE COUNT (BEAKER) (test 11.24 K/ L 1.56-6.13 uxtl=843) LYMPHOCYTES ABSOLUTE COUNT (BEAKER) (test 1.85 K/ L 1.18-3.74 hrfk=146) MONOCYTES ABSOLUTE COUNT (BEAKER) (test 1.08 K/ L 0.24-0.36 woza=539) EOSINOPHILS ABSOLUTE COUNT (BEAKER) (test 0.00 K/ L 0.04-0.36 rbov=958) BASOPHILS ABSOLUTE COUNT (BEAKER) (test 0.06 K/ L 0.01-0.08 phgp=159) IMMATURE GRANULOCYTES-RELATIVE PERCENT (BEAKER) 1 % 0-1 (test gcnd=8226) B-TYPE NATRIURETIC FACTOR (BNP)2019-05-30 05:24:00 Test Item Value Reference Range Comments B-TYPE NATRIURETIC PEPTIDE (BEAKER) (test 158 pg/mL 0-100 unab=682) RAD, CHEST, 1 VIEW, NON [id number] 01:11:00Reason for exam:->sobShould this be performed at the bedside?->YesFINAL REPORT Chest, 1 view. History: Shortness of breath. Comparison: Plain radiograph the chest dated 02/24/2019.. Findings: The cardiomediastinal silhouette and pulmonary vasculature are within normal limits for a portable exam. The lungs are clear without evidence of consolidation or effusion. The soft tissues and osseous structures are intact. Calcified granuloma in the left base. Retained contrast material in the stomach. Atherosclerotic calcifications of the thoracic aorta. IMPRESSION: No acute cardiopulmonary abnormality. Signed: Ary Gonzalez Verified Date/Time: 05/30/2019 01:11:55 [id number] 22:57:00 Test Item Value Reference Range Comments MAGNESIUM (BEAKER) (test bplm=153) 1.8 mg/dL 1.6-2.6 COMPREHENSIVE METABOLIC [id number] 22:57:00 Test Item Value Reference Range Comments TOTAL PROTEIN (BEAKER) 7.4 gm/dL 6.0-8.3 (test qhyg=434) ALBUMIN (BEAKER) (test 3.3 g/dL 3.5-5.0 vtzs=4932) ALKALINE PHOSPHATASE 82 U/L 40-150 (BEAKER) (test ulkr=133) BILIRUBIN TOTAL (BEAKER) 0.4 mg/dL 0.2-1.2 (test akgu=364) SODIUM (BEAKER) (test 138 meq/L 136-145 bevq=307) POTASSIUM (BEAKER) (test 3.0 meq/L 3.5-5.1 tfoo=916) CHLORIDE (BEAKER) (test 93 meq/L 98-107 fwdd=688) CO2 (BEAKER) (test 36 meq/L 22-29 ppyf=163) BLOOD UREA NITROGEN 11 mg/dL 7-21 (BEAKER) (test jveg=043) CREATININE (BEAKER) (test 0.75 mg/dL 0.57-1.25 pppe=840) GLUCOSE RANDOM (BEAKER) 138 mg/dL 70-105 (test vhpn=331) CALCIUM (BEAKER) (test 8.4 mg/dL 8.4-10.2 wppy=707) AST (SGOT) (BEAKER) (test 10 U/L 5-34 tkcr=519) ALT (SGPT) (BEAKER) (test 11 U/L 6-55 rcub=712) EGFR (BEAKER) (test 77 mL/min/1.73 sq m ESTIMATED GFR IS NOT pikw=2134) ACCURATE CREATININE CLEARANCE IN PREDICTING GLOMERULAR FILTRATION RATE. ESTIMATED GFR IS NOT APPLICABLE FOR DIALYSIS PATIENTS. PROTHROMBIN [id number] 22:37:00 Test Item Value Reference Range Comments PROTIME (BEAKER) (test fqhi=389) 14.7 seconds 11.9-14.2 INR (BEAKER) (test dnxu=974) 1.2 <=5.9 Effective 11/08/2018: PT Reference Range ChangeNew: 11.9-14.2 Previous: 11.7- 14.7RECOMMENDED COUMADIN/WARFARIN INR THERAPY RANGESSTANDARD DOSE: 2.0-3.0 Includes: PROPHYLAXIS for venous thrombosis, systemic embolization; TREATMENT for venous thrombosis and/or pulmonary embolus.HIGH RISK: Target INR is2.5-3.5 for patients wiht mechanical heart valves.CBC W/PLT COUNT & AUTO [id number] 22:32:00 Test Item Value Reference Range Comments WHITE BLOOD CELL COUNT (BEAKER) (test qgxx=086) 18.7 K/ L 3.5-10.5 RED BLOOD CELL COUNT (BEAKER) (test jouk=450) 4.00 M/ L 3.93-5.22 HEMOGLOBIN (BEAKER) (test ypgk=011) 11.1 GM/DL 11.2-15.7 HEMATOCRIT (BEAKER) (test fdem=384) 35.8 % 34.1-44.9 MEAN CORPUSCULAR VOLUME (BEAKER) (test gyta=177) 89.5 fL 79.4-94.8 MEAN CORPUSCULAR HEMOGLOBIN (BEAKER) (test 27.8 pg 25.6-32.2 rekg=854) MEAN CORPUSCULAR HEMOGLOBIN CONC (BEAKER) (test 31.0 GM/DL 32.2-35.5 eccm=283) RED CELL DISTRIBUTION WIDTH (BEAKER) (test 14.2 % 11.7-14.4 pzem=542) PLATELET COUNT (BEAKER) (test bbmx=256) 400 K/CU MM 150-450 MEAN PLATELET VOLUME (BEAKER) (test liwf=722) 9.2 fL 9.4-12.3 NUCLEATED RED BLOOD CELLS (BEAKER) (test 0 /100 WBC 0-0 eoym=041) NEUTROPHILS RELATIVE PERCENT (BEAKER) (test 82 % lcln=721) LYMPHOCYTES RELATIVE PERCENT (BEAKER) (test 10 % tmyj=690) MONOCYTES RELATIVE PERCENT (BEAKER) (test 6 % kmpv=334) EOSINOPHILS RELATIVE PERCENT (BEAKER) (test 0 % qmoo=043) BASOPHILS RELATIVE PERCENT (BEAKER) (test 0 % tyvd=672) NEUTROPHILS ABSOLUTE COUNT (BEAKER) (test 15.42 K/ L 1.56-6.13 hxjl=928) LYMPHOCYTES ABSOLUTE COUNT (BEAKER) (test 1.94 K/ L 1.18-3.74 hnla=664) MONOCYTES ABSOLUTE COUNT (BEAKER) (test 1.18 K/ L 0.24-0.36 dbhy=967) EOSINOPHILS ABSOLUTE COUNT (BEAKER) (test 0.00 K/ L 0.04-0.36 qpaj=597) BASOPHILS ABSOLUTE COUNT (BEAKER) (test 0.07 K/ L 0.01-0.08 nqxc=302) IMMATURE GRANULOCYTES-RELATIVE PERCENT (BEAKER) 1 % 0-1 (test alzm=6133) POCT-GLUCOSE [id number] 13:14:00 Test Item Value Reference Range Comments POC-GLUCOSE METER (BEAKER) 151 mg/dL 70-110 TESTED AT [address] (test dyrl=1505) [facility] [address] [id number] 06:59:00 Test Item Value Reference Range Comments PHOSPHORUS (BEAKER) (test offk=771) 4.3 mg/dL 2.3-4.7 [id number] 06:59:00 Test Item Value Reference Range Comments MAGNESIUM (BEAKER) (test yttz=041) 2.0 mg/dL 1.6-2.6 CBC W/PLT COUNT & AUTO [id number] 06:28:00 Test Item Value Reference Range Comments WHITE BLOOD CELL COUNT (BEAKER) (test ooax=162) 13.0 K/ L 3.5-10.5 RED BLOOD CELL COUNT (BEAKER) (test qkti=381) 3.83 M/ L 3.93-5.22 HEMOGLOBIN (BEAKER) (test mtks=259) 10.8 GM/DL 11.2-15.7 HEMATOCRIT (BEAKER) (test cvuj=645) 34.4 % 34.1-44.9 MEAN CORPUSCULAR VOLUME (BEAKER) (test qnok=638) 89.8 fL 79.4-94.8 MEAN CORPUSCULAR HEMOGLOBIN (BEAKER) (test 28.2 pg 25.6-32.2 vvek=361) MEAN CORPUSCULAR HEMOGLOBIN CONC (BEAKER) (test 31.4 GM/DL 32.2-35.5 zsxt=896) RED CELL DISTRIBUTION WIDTH (BEAKER) (test 15.2 % 11.7-14.4 mntl=638) PLATELET COUNT (BEAKER) (test qinq=363) 435 K/CU MM 150-450 MEAN PLATELET VOLUME (BEAKER) (test fzif=538) 9.0 fL 9.4-12.3 NUCLEATED RED BLOOD CELLS (BEAKER) (test 0 /100 WBC 0-0 vozu=207) NEUTROPHILS RELATIVE PERCENT (BEAKER) (test 65 % cvni=446) LYMPHOCYTES RELATIVE PERCENT (BEAKER) (test 27 % nxms=891) MONOCYTES RELATIVE PERCENT (BEAKER) (test 6 % ispv=795) EOSINOPHILS RELATIVE PERCENT (BEAKER) (test 0 % oihn=072) BASOPHILS RELATIVE PERCENT (BEAKER) (test 1 % pjge=870) NEUTROPHILS ABSOLUTE COUNT (BEAKER) (test 8.42 K/ L 1.56-6.13 hpdn=356) LYMPHOCYTES ABSOLUTE COUNT (BEAKER) (test 3.50 K/ L 1.18-3.74 mziq=303) MONOCYTES ABSOLUTE COUNT (BEAKER) (test 0.81 K/ L 0.24-0.36 miax=002) EOSINOPHILS ABSOLUTE COUNT (BEAKER) (test 0.00 K/ L 0.04-0.36 apkk=490) BASOPHILS ABSOLUTE COUNT (BEAKER) (test 0.07 K/ L 0.01-0.08 cxxl=748) IMMATURE GRANULOCYTES-RELATIVE PERCENT (BEAKER) 1 % 0-1 (test ywai=8346) POCT-GLUCOSE [id number] 06:13:00 Test Item Value Reference Range Comments POC-GLUCOSE METER (BEAKER) 130 mg/dL 70-110 TESTED AT [address] (test vyzb=1246) [facility] [address] POCT-GLUCOSE [id number] 01:55:00 Test Item Value Reference Range Comments POC-GLUCOSE METER (BEAKER) 122 mg/dL 70-110 TESTED AT [address] (test toxz=1905) [facility] [address] POCT-GLUCOSE [id number] 00:26:00 Test Item Value Reference Range Comments POC-GLUCOSE METER (BEAKER) 131 mg/dL 70-110 TESTED AT [address] (test tilw=6669) [place] [id number] POCT-GLUCOSE [id number] 16:48:00 Test Item Value Reference Range Comments POC-GLUCOSE METER (BEAKER) 101 mg/dL 70-110 TESTED AT [address] (test zrlw=1271) [place] [address] BODY FLUID CULTURE + GRAM [id number] 13:32:00 Test Item Value Reference Range Comments CULTURE (BEAKER) (test 3+ Nelly glabrata nucr=4910) GRAM STAIN RESULT (BEAKER) (test <1+ WBCs yyjk=5622) GRAM STAIN RESULT (BEAKER) (test 1+ budding yeast qvzh=35005) POCT-GLUCOSE [id number] 12:12:00 Test Item Value Reference Range Comments POC-GLUCOSE METER (BEAKER) 172 mg/dL 70-110 TESTED AT [address] (test tjdc=6255) [place] [address] POCT-GLUCOSE [id number] 08:02:00 Test Item Value Reference Range Comments POC-GLUCOSE METER (BEAKER) 126 mg/dL 70-110 TESTED AT [address] (test fhwe=4457) [place] [address] [id number] 07:00:00 Test Item Value Reference Range Comments PHOSPHORUS (BEAKER) (test kfrg=930) 3.3 mg/dL 2.3-4.7 [id number] 07:00:00 Test Item Value Reference Range Comments MAGNESIUM (BEAKER) (test ipwo=196) 1.9 mg/dL 1.6-2.6 CBC W/PLT COUNT & AUTO [id number] 06:24:00 Test Item Value Reference Range Comments WHITE BLOOD CELL COUNT (BEAKER) (test dduc=173) 11.9 K/ L 3.5-10.5 RED BLOOD CELL COUNT (BEAKER) (test hosr=843) 3.88 M/ L 3.93-5.22 HEMOGLOBIN (BEAKER) (test wbvx=807) 10.8 GM/DL 11.2-15.7 HEMATOCRIT (BEAKER) (test mlit=337) 34.9 % 34.1-44.9 MEAN CORPUSCULAR VOLUME (BEAKER) (test nmbe=283) 89.9 fL 79.4-94.8 MEAN CORPUSCULAR HEMOGLOBIN (BEAKER) (test 27.8 pg 25.6-32.2 kltu=406) MEAN CORPUSCULAR HEMOGLOBIN CONC (BEAKER) (test 30.9 GM/DL 32.2-35.5 sxvp=913) RED CELL DISTRIBUTION WIDTH (BEAKER) (test 15.1 % 11.7-14.4 kwdq=627) PLATELET COUNT (BEAKER) (test rpkj=077) 404 K/CU MM 150-450 MEAN PLATELET VOLUME (BEAKER) (test jmwt=193) 8.9 fL 9.4-12.3 NUCLEATED RED BLOOD CELLS (BEAKER) (test 0 /100 WBC 0-0 xvcr=405) NEUTROPHILS RELATIVE PERCENT (BEAKER) (test 63 % lyer=234) LYMPHOCYTES RELATIVE PERCENT (BEAKER) (test 30 % jxsy=084) MONOCYTES RELATIVE PERCENT (BEAKER) (test 5 % grkw=734) EOSINOPHILS RELATIVE PERCENT (BEAKER) (test 0 % xeeo=783) BASOPHILS RELATIVE PERCENT (BEAKER) (test 1 % mvkd=216) NEUTROPHILS ABSOLUTE COUNT (BEAKER) (test 7.53 K/ L 1.56-6.13 kioz=500) LYMPHOCYTES ABSOLUTE COUNT (BEAKER) (test 3.50 K/ L 1.18-3.74 yech=722) MONOCYTES ABSOLUTE COUNT (BEAKER) (test 0.64 K/ L 0.24-0.36 pqgu=299) EOSINOPHILS ABSOLUTE COUNT (BEAKER) (test 0.00 K/ L 0.04-0.36 wude=178) BASOPHILS ABSOLUTE COUNT (BEAKER) (test 0.08 K/ L 0.01-0.08 gdle=733) IMMATURE GRANULOCYTES-RELATIVE PERCENT (BEAKER) 1 % 0-1 (test yxjp=6587) POCT-GLUCOSE [id number] 20:45:00 Test Item Value Reference Range Comments POC-GLUCOSE METER (BEAKER) 158 mg/dL 70-[address] [facility] [address] [facility] (test nmyz=7714) [facility] [address] POCT-GLUCOSE [id number] 11:32:00 Test Item Value Reference Range Comments POC-GLUCOSE METER (BEAKER) 147 mg/dL 70-[address] [facility] [address] [facility] (test cnks=9065) [facility] [address] POCT-GLUCOSE [id number] 09:00:00 Test Item Value Reference Range Comments POC-GLUCOSE METER (BEAKER) 157 mg/dL 70-[address] [facility] [address] [facility] (test eysp=5292) [facility] [address] [id number] 06:53:00 Test Item Value Reference Range Comments PHOSPHORUS (BEAKER) (test kkoe=093) 2.1 mg/dL 2.3-4.7 [id number] 06:53:00 Test Item Value Reference Range Comments MAGNESIUM (BEAKER) (test hhgo=526) 2.0 mg/dL 1.6-2.6 CBC W/PLT COUNT & AUTO [id number] 06:02:00 Test Item Value Reference Range Comments WHITE BLOOD CELL COUNT (BEAKER) (test upqx=337) 10.6 K/ L 3.5-10.5 RED BLOOD CELL COUNT (BEAKER) (test ulfh=215) 3.72 M/ L 3.93-5.22 HEMOGLOBIN (BEAKER) (test dyos=124) 10.3 GM/DL 11.2-15.7 HEMATOCRIT (BEAKER) (test ymwe=252) 33.3 % 34.1-44.9 MEAN CORPUSCULAR VOLUME (BEAKER) (test nwmv=865) 89.5 fL 79.4-94.8 MEAN CORPUSCULAR HEMOGLOBIN (BEAKER) (test 27.7 pg 25.6-32.2 qjie=248) MEAN CORPUSCULAR HEMOGLOBIN CONC (BEAKER) (test 30.9 GM/DL 32.2-35.5 ytmh=319) RED CELL DISTRIBUTION WIDTH (BEAKER) (test 14.6 % 11.7-14.4 nuee=684) PLATELET COUNT (BEAKER) (test fjml=818) 414 K/CU MM 150-450 MEAN PLATELET VOLUME (BEAKER) (test ugqz=656) 9.4 fL 9.4-12.3 NUCLEATED RED BLOOD CELLS (BEAKER) (test 0 /100 WBC 0-0 jvgj=454) NEUTROPHILS RELATIVE PERCENT (BEAKER) (test 62 % vwit=938) LYMPHOCYTES RELATIVE PERCENT (BEAKER) (test 30 % rool=189) MONOCYTES RELATIVE PERCENT (BEAKER) (test 7 % zlpj=750) EOSINOPHILS RELATIVE PERCENT (BEAKER) (test 0 % hsxa=825) BASOPHILS RELATIVE PERCENT (BEAKER) (test 1 % purt=442) NEUTROPHILS ABSOLUTE COUNT (BEAKER) (test 6.56 K/ L 1.56-6.13 ofix=095) LYMPHOCYTES ABSOLUTE COUNT (BEAKER) (test 3.15 K/ L 1.18-3.74 cezu=032) MONOCYTES ABSOLUTE COUNT (BEAKER) (test 0.77 K/ L 0.24-0.36 hxnh=121) EOSINOPHILS ABSOLUTE COUNT (BEAKER) (test 0.00 K/ L 0.04-0.36 glls=987) BASOPHILS ABSOLUTE COUNT (BEAKER) (test 0.07 K/ L 0.01-0.08 wlex=206) IMMATURE GRANULOCYTES-RELATIVE PERCENT (BEAKER) 1 % 0-1 (test fzlm=8494) POCT-GLUCOSE [id number] 21:39:00 Test Item Value Reference Range Comments POC-GLUCOSE METER (BEAKER) 132 mg/dL 70-110 TESTED AT [address] (test mnpw=1241) [place] [address] POCT-GLUCOSE [id number] 16:59:00 Test Item Value Reference Range Comments POC-GLUCOSE METER (BEAKER) 135 mg/dL 70-110 TESTED AT [address] (test finp=0019) [place] [address] POCT-GLUCOSE [id number] 12:17:00 Test Item Value Reference Range Comments POC-GLUCOSE METER (BEAKER) 179 mg/dL 70-110 TESTED AT [address] (test wzjb=1407) [place] [address] LACTIC ACID, [id number] 09:29:00 Test Item Value Reference Range Comments LACTATE BLOOD VENOUS (2) (BEAKER) (test 1.3 mmol/L 0.5-2.2 luai=1171) POCT-GLUCOSE [id number] 09:23:00 Test Item Value Reference Range Comments POC-GLUCOSE METER (BEAKER) 134 mg/dL 70-110 TESTED AT [address] (test wqlm=2476) [place] [address] [id number] 06:58:00 Test Item Value Reference Range Comments PHOSPHORUS (BEAKER) (test swid=447) 2.3 mg/dL 2.3-4.7 [id number] 06:58:00 Test Item Value Reference Range Comments MAGNESIUM (BEAKER) (test llar=279) 2.0 mg/dL 1.6-2.6 CBC W/PLT COUNT & AUTO [id number] 06:30:00 Test Item Value Reference Range Comments WHITE BLOOD CELL COUNT (BEAKER) (test ikfa=411) 10.1 K/ L 3.5-10.5 RED BLOOD CELL COUNT (BEAKER) (test ouvn=701) 3.82 M/ L 3.93-5.22 HEMOGLOBIN (BEAKER) (test tiyz=332) 10.6 GM/DL 11.2-15.7 HEMATOCRIT (BEAKER) (test twfi=814) 35.6 % 34.1-44.9 MEAN CORPUSCULAR VOLUME (BEAKER) (test kdbp=331) 93.2 fL 79.4-94.8 MEAN CORPUSCULAR HEMOGLOBIN (BEAKER) (test 27.7 pg 25.6-32.2 arkm=212) MEAN CORPUSCULAR HEMOGLOBIN CONC (BEAKER) (test 29.8 GM/DL 32.2-35.5 fmds=015) RED CELL DISTRIBUTION WIDTH (BEAKER) (test 14.7 % 11.7-14.4 umea=771) PLATELET COUNT (BEAKER) (test lygx=057) 362 K/CU MM 150-450 MEAN PLATELET VOLUME (BEAKER) (test vdzy=195) 9.1 fL 9.4-12.3 NUCLEATED RED BLOOD CELLS (BEAKER) (test 0 /100 WBC 0-0 dbld=342) NEUTROPHILS RELATIVE PERCENT (BEAKER) (test 69 % qpup=087) LYMPHOCYTES RELATIVE PERCENT (BEAKER) (test 21 % jjdx=041) MONOCYTES RELATIVE PERCENT (BEAKER) (test 8 % vigl=545) EOSINOPHILS RELATIVE PERCENT (BEAKER) (test 0 % grkr=759) BASOPHILS RELATIVE PERCENT (BEAKER) (test 1 % putu=547) NEUTROPHILS ABSOLUTE COUNT (BEAKER) (test 7.00 K/ L 1.56-6.13 eddv=777) LYMPHOCYTES ABSOLUTE COUNT (BEAKER) (test 2.11 K/ L 1.18-3.74 jldh=615) MONOCYTES ABSOLUTE COUNT (BEAKER) (test 0.84 K/ L 0.24-0.36 pgzm=519) EOSINOPHILS ABSOLUTE COUNT (BEAKER) (test 0.00 K/ L 0.04-0.36 vktw=745) BASOPHILS ABSOLUTE COUNT (BEAKER) (test 0.06 K/ L 0.01-0.08 uvve=620) IMMATURE GRANULOCYTES-RELATIVE PERCENT (BEAKER) 1 % 0-1 (test nqux=5566) POCT-GLUCOSE [id number] 23:20:00 Test Item Value Reference Range Comments POC-GLUCOSE METER (BEAKER) 185 mg/dL 70-110 TESTED AT [address] (test ixao=0547) [place] [id number] POCT-GLUCOSE [id number] 17:44:00 Test Item Value Reference Range Comments POC-GLUCOSE METER (BEAKER) 215 mg/dL 70-110 TESTED AT [address] (test xhus=5347) [place] [id number] POCT-GLUCOSE [id number] 12:54:00 Test Item Value Reference Range Comments POC-GLUCOSE METER (BEAKER) 200 mg/dL 70-110 TESTED AT [address] (test wdsn=3319) [place] [id number] POCT-GLUCOSE [id number] 08:42:00 Test Item Value Reference Range Comments POC-GLUCOSE METER (BEAKER) 167 mg/dL 70-110 TESTED AT [address] (test nmng=9425) [place] [id number] 02:43:00 Test Item Value Reference Range Comments PHOSPHORUS (BEAKER) (test yyeu=736) 1.5 mg/dL 2.3-4.7 TROPONIN [id number] 02:15:00 Test Item Value Reference Range Comments TROPONIN I (BEAKER) (test rlyd=119) < ng/mL 0.00-0.03 Troponin I (TnI) levels [...] failure, acidosis, acute neurological disease, and persistent tachyarrhythmia.[id number] 02:08:00 Test Item Value Reference Range Comments MAGNESIUM (BEAKER) (test mvce=960) 2.0 mg/dL 1.6-2.6 BASIC METABOLIC [id number] 02:08:00 Test Item Value Reference Range Comments SODIUM (BEAKER) (test 140 meq/L 136-145 owwg=322) POTASSIUM (BEAKER) (test 3.8 meq/L 3.5-5.1 mvam=640) CHLORIDE (BEAKER) (test 106 meq/L 98-107 xsug=137) CO2 (BEAKER) (test 29 meq/L 22-29 ymtz=023) BLOOD UREA NITROGEN 5 mg/dL 7-21 (BEAKER) (test znmm=444) CREATININE (BEAKER) (test 0.58 mg/dL 0.57-1.25 ebvo=805) GLUCOSE RANDOM (BEAKER) 110 mg/dL 70-105 (test pknq=868) CALCIUM (BEAKER) (test 8.3 mg/dL 8.4-10.2 cnaf=001) EGFR (BEAKER) (test 103 mL/min/1.73 sq m ESTIMATED GFR IS NOT nirg=5950) ACCURATE CREATININE CLEARANCE IN PREDICTING GLOMERULAR FILTRATION RATE. ESTIMATED GFR IS NOT APPLICABLE FOR DIALYSIS PATIENTS. CBC W/PLT COUNT & AUTO [id number] 01:44:00 Test Item Value Reference Range Comments WHITE BLOOD CELL COUNT (BEAKER) (test tsjk=236) 10.7 K/ L 3.5-10.5 RED BLOOD CELL COUNT (BEAKER) (test zixq=874) 3.43 M/ L 3.93-5.22 HEMOGLOBIN (BEAKER) (test kcpq=283) 9.7 GM/DL 11.2-15.7 HEMATOCRIT (BEAKER) (test icbt=512) 30.8 % 34.1-44.9 MEAN CORPUSCULAR VOLUME (BEAKER) (test oxmt=291) 89.8 fL 79.4-94.8 MEAN CORPUSCULAR HEMOGLOBIN (BEAKER) (test 28.3 pg 25.6-32.2 gvie=794) MEAN CORPUSCULAR HEMOGLOBIN CONC (BEAKER) (test 31.5 GM/DL 32.2-35.5 tpyl=016) RED CELL DISTRIBUTION WIDTH (BEAKER) (test 14.6 % 11.7-14.4 pjjc=517) PLATELET COUNT (BEAKER) (test sqgb=537) 387 K/CU MM 150-450 MEAN PLATELET VOLUME (BEAKER) (test bdgn=536) 9.3 fL 9.4-12.3 NUCLEATED RED BLOOD CELLS (BEAKER) (test 0 /100 WBC 0-0 skjp=116) NEUTROPHILS RELATIVE PERCENT (BEAKER) (test 70 % svxa=353) LYMPHOCYTES RELATIVE PERCENT (BEAKER) (test 20 % yelm=331) MONOCYTES RELATIVE PERCENT (BEAKER) (test 9 % cnzb=461) EOSINOPHILS RELATIVE PERCENT (BEAKER) (test 0 % xzmz=653) BASOPHILS RELATIVE PERCENT (BEAKER) (test 1 % hyix=745) NEUTROPHILS ABSOLUTE COUNT (BEAKER) (test 7.44 K/ L 1.56-6.13 wvwd=477) LYMPHOCYTES ABSOLUTE COUNT (BEAKER) (test 2.12 K/ L 1.18-3.74 exiv=204) MONOCYTES ABSOLUTE COUNT (BEAKER) (test 0.97 K/ L 0.24-0.36 jzhp=104) EOSINOPHILS ABSOLUTE COUNT (BEAKER) (test 0.00 K/ L 0.04-0.36 fyto=143) BASOPHILS ABSOLUTE COUNT (BEAKER) (test 0.05 K/ L 0.01-0.08 owzp=191) IMMATURE GRANULOCYTES-RELATIVE PERCENT (BEAKER) 1 % 0-1 (test dgxs=0766) POCT-GLUCOSE [id number] 23:07:00 Test Item Value Reference Range Comments POC-GLUCOSE METER (BEAKER) 132 mg/dL 70-110 TESTED AT [address] (test aqvz=7093) [facility] [address] U/S, DRAINAGE, W/ CATH [id number] 20:54:00Reason for exam:->Needs percutaneous cholecystostomy tubeFINAL REPORT [...] was administered. Under ultrasound guidance, a 7 Singaporean catheter was passed through the liver under trocar technique into the gallbladder. Approximately 120 mL of thick green and cloudy fluid was aspirated. The catheter was affixed to the skin and connected to suction bulb. Samples were sent for analysis. Post procedure scan showed no immediatecomplications. IMPRESSION: Successful transhepatic percutaneous cholecystostomy drainage catheter placement with a 7 Singaporean catheter. Signed: John Paul Campo MDReport Verified Date/Time: 02/25/2019 20:54:16 Reading Location: [facility] C0Y AR Body Reading Room POCT-GLUCOSE [id number] 17:58:00 Test Item Value Reference Range Comments POC-GLUCOSE METER (BEAKER) 243 mg/dL 70-110 TESTED AT [address] (test jfar=5147) [facility] [address] POCT-GLUCOSE [id number] 12:14:00 Test Item Value Reference Range Comments POC-GLUCOSE METER (BEAKER) 90 mg/dL 70-110 TESTED AT [address] (test mziw=4939) [facility] [address] [id number] 06:48:00 Test Item Value Reference Range Comments PHOSPHORUS (BEAKER) (test qvtr=734) 2.0 mg/dL 2.3-4.7 [id number] 06:48:00 Test Item Value Reference Range Comments MAGNESIUM (BEAKER) (test andw=248) 2.2 mg/dL 1.6-2.6 BASIC METABOLIC [id number] 06:48:00 Test Item Value Reference Range Comments SODIUM (BEAKER) (test 139 meq/L 136-145 lhti=271) POTASSIUM (BEAKER) (test 4.1 meq/L 3.5-5.1 qlne=904) CHLORIDE (BEAKER) (test 108 meq/L 98-107 kmlv=323) CO2 (BEAKER) (test 26 meq/L 22-29 wcis=498) BLOOD UREA NITROGEN 8 mg/dL 7-21 (BEAKER) (test byuy=950) CREATININE (BEAKER) (test 0.64 mg/dL 0.57-1.25 exze=123) GLUCOSE RANDOM (BEAKER) 119 mg/dL 70-105 (test dklz=496) CALCIUM (BEAKER) (test 8.4 mg/dL 8.4-10.2 onpi=845) EGFR (BEAKER) (test 92 mL/min/1.73 sq m ESTIMATED GFR IS NOT fdvm=8379) ACCURATE CREATININE CLEARANCE IN PREDICTING GLOMERULAR FILTRATION RATE. ESTIMATED GFR IS NOT APPLICABLE FOR DIALYSIS PATIENTS. PROTHROMBIN [id number] 06:44:00 Test Item Value Reference Range Comments PROTIME (BEAKER) (test yujk=966) 16.9 seconds 11.9-14.2 INR (BEAKER) (test gqdt=959) 1.5 <=5.9 Effective 11/08/2018: PT Reference Range ChangeNew: 11.9-14.2 Previous: 11.7- 14.7RECOMMENDED COUMADIN/WARFARIN INR THERAPY RANGESSTANDARD DOSE: 2.0-3.0 Includes: PROPHYLAXIS for venous thrombosis, systemic embolization; TREATMENT for venous thrombosis and/or pulmonary embolus.HIGH RISK: Target INR is2.5-3.5 for patients wiht mechanical heart valves.CBC W/PLT COUNT & AUTO [id number] 06:35:00 Test Item Value Reference Range Comments WHITE BLOOD CELL COUNT (BEAKER) (test shuu=635) 12.5 K/ L 3.5-10.5 RED BLOOD CELL COUNT (BEAKER) (test sxfx=979) 3.34 M/ L 3.93-5.22 HEMOGLOBIN (BEAKER) (test cmri=692) 9.4 GM/DL 11.2-15.7 HEMATOCRIT (BEAKER) (test cfxs=523) 31.0 % 34.1-44.9 MEAN CORPUSCULAR VOLUME (BEAKER) (test rkeg=669) 92.8 fL 79.4-94.8 MEAN CORPUSCULAR HEMOGLOBIN (BEAKER) (test 28.1 pg 25.6-32.2 phno=732) MEAN CORPUSCULAR HEMOGLOBIN CONC (BEAKER) (test 30.3 GM/DL 32.2-35.5 dkck=289) RED CELL DISTRIBUTION WIDTH (BEAKER) (test 14.9 % 11.7-14.4 tmuj=379) PLATELET COUNT (BEAKER) (test mddt=792) 381 K/CU MM 150-450 MEAN PLATELET VOLUME (BEAKER) (test zpwp=480) 9.4 fL 9.4-12.3 NUCLEATED RED BLOOD CELLS (BEAKER) (test 0 /100 WBC 0-0 txoh=951) NEUTROPHILS RELATIVE PERCENT (BEAKER) (test 76 % chmu=751) LYMPHOCYTES RELATIVE PERCENT (BEAKER) (test 13 % szrf=600) MONOCYTES RELATIVE PERCENT (BEAKER) (test 9 % pxnv=209) EOSINOPHILS RELATIVE PERCENT (BEAKER) (test 0 % wkvm=020) BASOPHILS RELATIVE PERCENT (BEAKER) (test 1 % qtqh=422) NEUTROPHILS ABSOLUTE COUNT (BEAKER) (test 9.57 K/ L 1.56-6.13 wkgt=258) LYMPHOCYTES ABSOLUTE COUNT (BEAKER) (test 1.65 K/ L 1.18-3.74 dway=260) MONOCYTES ABSOLUTE COUNT (BEAKER) (test 1.14 K/ L 0.24-0.36 mmvj=141) EOSINOPHILS ABSOLUTE COUNT (BEAKER) (test 0.00 K/ L 0.04-0.36 nglv=634) BASOPHILS ABSOLUTE COUNT (BEAKER) (test 0.06 K/ L 0.01-0.08 dsbd=743) IMMATURE GRANULOCYTES-RELATIVE PERCENT (BEAKER) 1 % 0-1 (test ltsc=4127) POCT-GLUCOSE [id number] 06:01:00 Test Item Value Reference Range Comments POC-GLUCOSE METER (BEAKER) 107 mg/dL 70-[address] [facility] [address] [place] [address] (test vhon=6734) [facility] [address] U/S, ABDOMINAL, [id number] 03:14:00Reason for exam:->RUQ painFINAL REPORT INDICATION: RUQ [...] setting of hepatic steatosis. Signed: Ary Gonzalez [facility] ([place], [place]) Verified Date/Time: 02/25/2019 03:14:55 POCT-GLUCOSE [id number] 00:07:00 Test Item Value Reference Range Comments POC-GLUCOSE METER (BEAKER) 119 mg/dL 70-110 TESTED AT [address] (test vjzw=5385) [facility] [address] RAD, CHEST, 1 VIEW, NON [id number] 00:05:00Reason for exam:->Cough, concern for aspirationShould this [...] aortic arch. Additional findings: None. Signed: Destiny Vasqueseport Verified Date/Time: 02/25/2019 00:05:51 Reading Location: [facility] C013V Neuro Reading Room 12: 05 AMPOCT-GLUCOSE [id number] 18:38:00 Test Item Value Reference Range Comments POC-GLUCOSE METER (BEAKER) 76 mg/dL 70-110 TESTED AT [address] (test jucf=2943) [place] [address] POCT-GLUCOSE [id number] 12:26:00 Test Item Value Reference Range Comments POC-GLUCOSE METER (BEAKER) 101 mg/dL 70-110 TESTED AT [address] (test tcfi=8601) [place] [address] TROPONIN [id number] 10:57:00 Test Item Value Reference Range Comments TROPONIN I (BEAKER) (test eogb=711) < ng/mL 0.00-0.03 Troponin I (TnI) levels [...] acidosis, acute neurological disease, and persistent tachyarrhythmia.POCT-GLUCOSE [id number] 06:34:00 Test Item Value Reference Range Comments POC-GLUCOSE METER (BEAKER) 109 mg/dL 70-110 TESTED AT [address] (test hcpo=3695) [place] [address] B-TYPE NATRIURETIC FACTOR (BNP)2019-02-24 01:17:00 Test Item Value Reference Range Comments B-TYPE NATRIURETIC PEPTIDE (BEAKER) (test 255 pg/mL 0-100 nrzw=167) BASIC METABOLIC [id number] 01:12:00 Test Item Value Reference Range Comments SODIUM (BEAKER) (test 138 meq/L 136-145 ilri=952) POTASSIUM (BEAKER) (test 3.7 meq/L 3.5-5.1 rras=200) CHLORIDE (BEAKER) (test 106 meq/L 98-107 txkl=859) CO2 (BEAKER) (test 24 meq/L 22-29 rrzc=486) BLOOD UREA NITROGEN 10 mg/dL 7-21 (BEAKER) (test nvdw=996) CREATININE (BEAKER) (test 0.66 mg/dL 0.57-1.25 lkpd=882) GLUCOSE RANDOM (BEAKER) 136 mg/dL 70-105 (test blsr=574) CALCIUM (BEAKER) (test 8.5 mg/dL 8.4-10.2 cxei=747) EGFR (BEAKER) (test 89 mL/min/1.73 sq m ESTIMATED GFR IS NOT gtto=5910) ACCURATE CREATININE CLEARANCE IN PREDICTING GLOMERULAR FILTRATION RATE. ESTIMATED GFR IS NOT APPLICABLE FOR DIALYSIS PATIENTS. CBC W/PLT COUNT & AUTO [id number] 00:53:00 Test Item Value Reference Range Comments WHITE BLOOD CELL COUNT (BEAKER) (test pvox=133) 19.0 K/ L 3.5-10.5 RED BLOOD CELL COUNT (BEAKER) (test nekv=023) 3.96 M/ L 3.93-5.22 HEMOGLOBIN (BEAKER) (test trlh=581) 10.9 GM/DL 11.2-15.7 HEMATOCRIT (BEAKER) (test stxp=013) 36.0 % 34.1-44.9 MEAN CORPUSCULAR VOLUME (BEAKER) (test kttf=891) 90.9 fL 79.4-94.8 MEAN CORPUSCULAR HEMOGLOBIN (BEAKER) (test 27.5 pg 25.6-32.2 wyum=731) MEAN CORPUSCULAR HEMOGLOBIN CONC (BEAKER) (test 30.3 GM/DL 32.2-35.5 qucp=301) RED CELL DISTRIBUTION WIDTH (BEAKER) (test 14.9 % 11.7-14.4 tmgb=227) PLATELET COUNT (BEAKER) (test urdc=830) 369 K/CU MM 150-450 MEAN PLATELET VOLUME (BEAKER) (test eyhx=417) 9.4 fL 9.4-12.3 NUCLEATED RED BLOOD CELLS (BEAKER) (test 0 /100 WBC 0-0 coee=022) NEUTROPHILS RELATIVE PERCENT (BEAKER) (test 83 % twko=633) LYMPHOCYTES RELATIVE PERCENT (BEAKER) (test 9 % utls=823) MONOCYTES RELATIVE PERCENT (BEAKER) (test 6 % bifg=361) EOSINOPHILS RELATIVE PERCENT (BEAKER) (test 0 % gucd=656) BASOPHILS RELATIVE PERCENT (BEAKER) (test 0 % fzdn=017) NEUTROPHILS ABSOLUTE COUNT (BEAKER) (test 15.83 K/ L 1.56-6.13 eihv=964) LYMPHOCYTES ABSOLUTE COUNT (BEAKER) (test 1.65 K/ L 1.18-3.74 kydm=044) MONOCYTES ABSOLUTE COUNT (BEAKER) (test 1.22 K/ L 0.24-0.36 gajn=794) EOSINOPHILS ABSOLUTE COUNT (BEAKER) (test 0.00 K/ L 0.04-0.36 ddld=275) BASOPHILS ABSOLUTE COUNT (BEAKER) (test 0.07 K/ L 0.01-0.08 qqkv=337) IMMATURE GRANULOCYTES-RELATIVE PERCENT (BEAKER) 1 % 0-1 (test acij=5626)
[2019-08-26 09:43] LABS: Absolute Lymphocytes (CBC) 2.5 K/uL (0.7-4.9); Basophils % 0.8 % (0-1.3); Hematocrit 37.5 % (36.0-45.0); Lymphocytes % 16.8 % (15.3-44.8); MPV 8.7 fL (7.6-11.3); RBC Red Blood Cell Count 4.26 M/uL (3.86-4.86)
[2019-08-26 09:47] LABS: Protime INR 1.14
[2019-08-26 09:49] LABS: Arterial Blood Carboxyhemoglob 1.1 % (0-1.5); Blood Gas Oxyhemoglobin 97.1 % (94-97); Blood O2 Saturation 99.1 % (92-98.5)
[2019-08-26] MEDS ORDERED: NALOXONE 0.4 MG/ML VIAL ONE (09:55)
[2019-08-26] MEDS ORDERED: MIDAZOLAM HCL 2 MG/2 ML INJ ONE (09:55)
[2019-08-26] MEDS ORDERED: ETOMIDATE 20 MG/10 ML VIAL IV ONE (09:55)
[2019-08-26] MEDS ORDERED: ROCURONIUM 50 MG/5 ML VIAL IV ONE (09:56)
[2019-08-26 10:23] LABS: Albumin 2.5 g/dL (3.4-5.0); Bilirubin Direct 0.1 mg/dL (0-0.2); Bilirubin Total 0.4 mg/dL (0.2-1.0); Magnesium 2.6 mg/dL (1.8-2.4); Potassium 4.2 mmol/L (3.5-5.1); Protein, Total 7.9 g/dL (6.4-8.2); Troponin (Emerg Dept Use Only) 0.12 ng/mL (0.0-0.045)
[2019-08-26 10:24] LABS: Thyroid Stimulating Hormone 5.11 uIU/mL (0.360-3.740)
--- NOTE | 2019-08-26 10:31 | RAD REPORT ---
EXAM DESCRIPTION: RAD - Chest Single View - 08/26/2019 9:38 am CLINICAL HISTORY: COUGH COMPARISON: Portable chest February 2019 TECHNIQUE: AP portable chest image was obtained 08/26/2019 9:38 am . FINDINGS: Hazy interstitial and alveolar opacities are present in the right lung field in the lower left lung field. Mid and upper left lung field clear. Motion degradation is present. Mild cardiomegal y is present with vascular engorgement. Small bilateral pleural effusions are seen. No pneumothorax. No acute bony abnormality seen. No acute aortic findings suspected. IMPRESSION: Hazy right lung field opacification and patchy left base opacification suspicious for de veloping pneumonia.
[2019-08-26] MEDS ORDERED: DIGOXIN 0.25 MG/ML AMP ONE (10:34)
[2019-08-26] MEDS ORDERED: PIPER/TAZO/NS 3.375gm 3.375 GM/100 ML BAG ONE (10:34)
[2019-08-26] MEDS ORDERED: IPRATROPIUM BROM 0.5MG/2.5ML ONE (10:34)
[2019-08-26] MEDS ORDERED: LEVALBUTEROL 1.25 MG/3 ML NEB ONE (10:34)
[2019-08-26] MEDS ORDERED: NA CHLORIDE 0.9% 2,000 ML ONE (10:35)
--- NOTE | 2019-08-26 10:35 | RAD REPORT ---
EXAM DESCRIPTION: CT - Head Brain Wo Cont - 08/26/2019 10:19 am CLINICAL HISTORY: DECLINING STATE, transient alteration of awareness COMPARISON: Head Brain Wo Cont dated 02/23/2019 TECHNIQUE: Axial 5 mm thick images of the head were obtained without IV contrast. All CT scans are performed using dose optimization technique as appropriate and may include automated exposure control or mA/KV adjustment according to patient size. FINDINGS: No intracranial hemorrhage is present. No acute cortical based infarction identified. No c ortical edema or sulcal effacement. Patient has a large serpiginous mass in the right temporal lobe, basal ganglia and thalamus region. This is similar to prior imaging. This is probably a large venous malformation. Finding has not been fully assessed at this facility. Interval change is not identifiab le. Right lateral ventricle is partially effaced by the mass. Ventricular asymmetry matches compariso n. No ventricular enlargement. Mastoid air cells and visualized portions of the paranasal sinuses are clear. No acute bony findings. IMPRESSION: No acute intracranial finding identifiable. 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 This finding has not been fully assessed at this facility but is not clearly different from prior imaging March 02.
[2019-08-26] MEDS ORDERED: METHYLPREDNISOLONE 125 MG INJ ONE (10:47)
--- NOTE | 2019-08-26 10:47 | RAD REPORT ---
EXAM DESCRIPTION: CT - Chest Abd Pelvis Wo Con - 08/26/2019 10:19 am CLINICAL HISTORY: Cough;Dyspnea;Abdominal distention COMPARISON: Abdomen Pelvis Wo Contrast dated 05/29/2019 TECHNIQUE: Axial 5 millimeter thick images of the chest, abdomen and pelvis were obtained without IV contrast. Oral contrast was administered. All CT scans are performed using dose optimization technique as appropriate and may include automated exposure control or mA/KV adjustment according to patient size. FINDINGS: Minimal bilateral pleural effusions are present and there is some patchy atelectasis in ea ch posterior gutter. No pneumothorax is present. Motion degradation limits the examination. There is some minimal ground-glass opacification in the right upper lobe and right middle lobe. Atelectasis se en in the left upper lobe along the fissure. Areas of consolidation are not confirmed. No chest wall mass or abnormal axillary lymphadenopathy seen. Mediastinal and hilar regions show no mass or lympha denopathy. No pericardial effusion. The liver, spleen and pancreas show no significant findings for non contrast imaging. Gallbladder is not clearly defined. Surgical intervention occurred since the May 2019 imaging. Details are not provided. Pneumobilia is present in the extrahepatic biliary tree. There is a stent or implant place d in the region of the antrum and pylorus. No acute small bowel finding. Moderately large stool volum e fills but does not dilate the colon. No acute colon process suspected. No hydronephrosis or suspicious renal mass. Isodense masses and pyelonephritis cannot be excluded on non contrast imaging. No adrenal abnormalities. No urinary bladder abnormalities. Uterus and atroph ic ovaries show no suspicious findings peer No dilated bowel loops or bowel wall thickening. No free air, free fluid or inflammatory stranding. No hernia, mass or bulky lymphadenopathy. Disc and bony degenerative changes are present. IMPRESSION: Motion degraded CT chest study shows hazy alveolar opacities in the right upper lung fie ld and right middle lobe suspicious for pneumonia. Small bilateral pleural effusions are present with posterior gutter atelectasis. No ascites for acute abdominal or pelvic process identifiable. Patient has a large amount of peritone al fat. Moderately large stool volume filling the colon without active colon process seen. Right upper quadrant surgical changes are evident without history detailed. Pneumobilia is present. T here is a stent or implant in the region of the pylorus that may be part of a cholecystectomy process . Gallbladder is not visualized and may be absent or contracted. CT abdomen and pelvis imaging shows no significant or suspicious finding.
--- NOTE | 2019-08-26 11:08 | ER ---
Nurse's Notes [facility] Name: Audra Gonzalez Age: 68 yrs Sex: Female : 1950 Arrival Date: 08/26/2019 Time: 09:16 Bed 3 Private MD: Diagnosis: Pneumonia due to other specified bacteria-aspiration;Hypoxemia;Atrial fibrillation and flutter;Hypotension;Respiratory failure, unspecified with hypercapnia;Altered mental status, unspecified Presentation: 08/25 09:10 Chief complaint: EMS states: called out for low O2 sat and not communicating. On EMS sv arrival pt was altered, on O2 \\T\\ 6L per NC w/ sat of 88% HR-80s 97.7. IV Tylenol and Fentanyl 50 mcg IVP given and pt was not responding to painful stimuli and was not breathing, Narcan 1 mg given and pt became more responsive. 5 mins before arrival pt had no pulse and 4 manual compressions were given and pt became responsive and has a pulse. BP 121/66 HR-89. Initial Sepsis Screen: Does the patient meet any 2 criteria? RR > 20 per min. Systolic BP < 90 mmHg. Altered Mental Status. HR > 90 bpm. Yes Does the patient have a suspected source of infection? Yes: Other: AMS. Risk Assessment: Do you want to hurt yourself or someone else? Unable to obtain. 09:10 Method Of Arrival: EMS: [facility] sv 09:10 Acuity: ELIZ 1 sv 09:10 Onset of symptoms was August 26, 2019. sv 13:20 Coronavirus screen: The patient has NOT traveled to a country currently being monitored sv by the [facility] within the last 14 days. Proceed with normal triage procedures. The patient has NOT had contact with any known and/or suspected case of coronavirus. Proceed with normal triage procedures. Ebola Screen: No symptoms or risks identified at this time. Triage Assessment: 09:10 General: Appears distressed, uncomfortable, Behavior is drowsy. Pain: Unable to use sv pain scale. Patient is disoriented. Does not appear to understand pain scale. FLACC scale score is 0 out of 10. Neuro: Level of Consciousness is lethargic. Cardiovascular: Rhythm is atrial fibrillation. Respiratory: Airway is patent Respiratory effort is shallow, weak, Respiratory pattern is tachypnea. GI: Abdomen is round obese. Derm: Skin is pale. Musculoskeletal: Contractures and foot drop noted to BLE. Historical: - Allergies: : Morphine; sv - PMHx: : brain cancer; AVM; Depression; Hypertension; sv - PSHx: : Cholecystectomy; sv - Immunization history:: Adult Immunizations unknown. - Social history:: Smoking status: unknown. - Family history:: not pertinent. Screenin:32 Abuse screen: unable to obtain. Nutritional screening: unable to obtain. Tuberculosis sv screening: unable to obtain. Fall Risk No fall in past 12 months (0 pts). Secondary diagnosis (15 points) brain cancer. IV access (20 points). Ambulatory Aid- None/Bed Rest/Nurse Assist (0 pts). Gait- Normal/Bed Rest/Wheelchair (0 pts) Mental Status- Overestimates/Forgets Limitations (15 pts.). Total Longoria Fall Scale indicates High Risk Score (45 or more points). Fall prevention measures have been instituted. Side Rails Up X 2 Placed Close to Nursing Station Frequent Obs/Assessments Occuring As available patient and family educated on Fall Prevention Program and Strategies. Assessment: 09:20 Reassessment: Code Sepsis called. sv 10:00 Reassessment: Daughter at the bedside, Dr Frias at the bedside speaking with her and sv attempting to figure out the code status. 10:39 Reassessment: Patient appears in no apparent distress at this time. No changes from sv previously documented assessment. Patient and/or family updated on plan of care and expected duration. Pain level reassessed. 10:53 Reassessment: Patient appears in no apparent distress at this time. No changes from sv previously documented assessment. Patient and/or family updated on plan of care and expected duration. Pain level reassessed. 12:10 Reassessment: More family at the bedside. Dr Frias at the bedside speaking with them sv trying to get a code status for the pt. 13:20 Reassessment: Patient appears in no apparent distress at this time. Patient and/or sv family updated on plan of care and expected duration. Pain level reassessed. Neuro: Level of Consciousness is lethargic, Oriented to none. Cardiovascular: Rhythm is sinus rhythm. Respiratory: Airway is patent Respiratory effort is even, unlabored, shallow, weak, Respiratory pattern is regular, symmetrical. 13:22 Reassessment: Dr Christian at the bedside speaking with family. sv 13:30 Reassessment: Dr Christian has had an in depth conversation regarding code status. He sv informed myself and the daughter that they want to withdraw the BIPAP and any oxygen furthermore. Daughter stated they only wanted to keep the oxygen on her until all of the family was here to be able to say bye to the pt. 13:47 Reassessment: Attempted to call report, nurse to call back. sv 14:08 Reassessment: BIPAP removed per daughters request. sv 14:21 Reassessment: Daughter requesting for the pt to be placed on O2 \\T\\6L per NC, "It would sv help my sister.". 14:43 Reassessment: Went to take family tissues. Daughter stated that they are ok if the pt sv goes upstairs if she has a room assigned, they would like to take her home and put her on hospice but they have no working oxygen. Informed them that we could place a social service consult in for them to set up hospice and home oxygen. Family was agreeable with POC. 14:53 Reassessment: Family would like IV antibiotics to be done. sv 15:06 Reassessment: Patient appears in no apparent distress at this time. No changes from sv previously documented assessment. Vital Signs: 09:10 BP 87 / 60; Pulse 107; Resp 24; Temp 97.1; Pulse Ox 100% on 15% Non-rebreather mask; sv 10:08 Weight 84.82 kg; hb 10:35 BP 104 / 80; Pulse 103; Resp 25; Pulse Ox 100% on 80% BiPAP; hb 11:15 BP 122 / 74; Pulse 97; Resp 22; Pulse Ox 97% on 35% BiPAP; hb 12:00 BP 115 / 60; Pulse 78; Resp 22; Pulse Ox 95% on BiPAP; sv 13:00 BP 114 / 59; Pulse 72; Resp 20; Pulse Ox 95% on BiPAP; sv 13:45 BP 127 / 48; Pulse 74; Resp 16; Pulse Ox 97% on BiPAP; sv 14:17 Pulse 86; Pulse Ox 59% on R/A; sv 14:38 BP 130 / 64; Pulse 82; Resp 14; Pulse Ox 95% on 6 lpm NC; sv 10:35 BIPAP 15/7, R14, 80% hb ED Course: 09:15 Patient has correct armband on for positive identification. Bed in low position. Side sv rails up X2. bus driver/monitor on. Pulse ox on. NIBP on. Head of bed elevated. 09:16 Patient arrived in ED. ss 09:17 Mc Frias MD is Attending Physician. samina 09:25 Triage completed. sv 09:27 Initial lab(s) drawn, sent to lab. First set of blood cultures drawn. hb 09:27 Inserted saline lock: 24 gauge in left wrist, using aseptic technique. Blood collected. hb 09:31 Arm band placed on. sv 09:32 X-ray(s) taken. sv 09:37 XRAY Chest (1 view) In Process Unspecified. EDMS 10:05 Second set of blood cultures drawn. hb 10:21 CT Head Brain wo Cont In Process Unspecified. EDMS 10:21 CT Chest Abdomen Pelvis W/O Contrast: no iv, no oral In Process Unspecified. EDMS 10:23 Mandy Arango, ARCENIO is Primary Nurse. sv 10:39 BIPAP Sent. sv 11:05 Alicia Christian MD is Hospitalizing Provider. samina 11:24 Lawler cath inserted, using sterile technique, 16 Fr., by wy, balloon inflated, to hb gravity drainage, urine specimen collected. returned clear yellow urine. Patient tolerated well. 11:31 Urine Dipstick--Ancillary (enter results) Sent. sv 15:06 No provider procedures requiring assistance completed. Patient admitted, IV remains in sv place. intact. Administered Medications: Discontinued: NS 0.9% (30 ml/kg) 30 ml/kg IV at bolus once; Sepsis Protocol 09:54 Drug: NARcan 0.4 mg Route: IVP; Site: left wrist; hb 11:15 Follow up: Response: No adverse reaction sv 10:39 Drug: Digoxin 0.5 mg Route: IVP; Site: right wrist; sv 11:15 Follow up: Response: No adverse reaction sv 10:39 Drug: Xopenex 1.25 mg Route: Inhalation; sv 10:39 Drug: AtroVENT Aerosol 0.5 mg Route: Inhalation; sv 10:39 Drug: Xopenex 1.25 mg Route: Inhalation; sv 10:40 Drug: NS 0.9% (30 ml/kg) 30 ml/kg Route: IV; Rate: bolus; Site: right wrist; sv 10:50 Drug: SOLU-Medrol 125 mg Route: IVP; Site: right wrist; sv 11:15 Follow up: Response: No adverse reaction sv 10:53 Drug: Zosyn 3.375 grams Route: IVPB; Infused Over: 60 mins; Site: right wrist; sv 11:53 Follow up: Response: No adverse reaction; IV Status: Completed infusion; IV Intake: sv 100ml Point of Care Testing: Blood Glucose: 09:20 Blood Glucose: 160 mg/dL; sv Ranges: Intake: 11:53 IV: 100ml; Total: 100ml. sv Outcome: 11:07 Decision to Hospitalize by Provider. samina 14:50 Admitted to Tele accompanied by tech, family with patient, via stretcher, room 231, sv with oxygen, with chart, Report called to Pérez RG 14:50 Condition: stable 14:50 Instructed on the need for admit. 15:06 Patient left the ED. sv Signatures: Dispatcher [employer] Mandy Jose RN RN sv Mc Frias MD MD cha Smirch, Shelby, RN RN Sanam Galvin RN RN hb
--- NOTE | 2019-08-26 11:08 | EDPHYS ---
Physician Documentation [facility] Name: Audra Gonzalez Age: 68 yrs Sex: Female : 1950 Arrival Date: 08/26/2019 Time: 09:16 Bed 3 Private MD: ED Physician Mc Frias HPI: 08/25 09:21 This 68 yrs old Female presents to ER via Unassigned with complaints of Low samina O2 sat. 09:21 The patient has shortness of breath at rest. Onset: The symptoms/episode began/occurred samina 3 day(s) ago. Duration: The symptoms are continuous, and are steadily getting worse. The patient's shortness of breath has no apparent modifying factors. hx of brain cancer , off hospice. Associated signs and symptoms: Pertinent positives: non-productive cough. Severity of symptoms: At their worst the symptoms were moderate severe in the emergency department the symptoms have improved mildly. The patient has experienced similar episodes in the past, a few times. Historical: - Allergies: 09:26 Morphine; sv - PMHx: :26 brain cancer; AVM; Depression; Hypertension; sv - PSHx: : Cholecystectomy; sv - Immunization history:: Adult Immunizations unknown. - Social history:: Smoking status: unknown. - Family history:: not pertinent. ROS: 09:21 Constitutional: Negative for fever, chills, and weight loss, Eyes: Negative for injury, samina pain, redness, and discharge, ENT: Negative for injury, pain, and discharge, Neck: Negative for injury, pain, and swelling, Abdomen/GI: Negative for abdominal pain, nausea, vomiting, diarrhea, and constipation, Back: Negative for injury and pain, : Negative for injury, bleeding, discharge, and swelling, MS/Extremity: Negative for injury and deformity, Skin: Negative for injury, rash, and discoloration, Psych: Negative for depression, anxiety, suicide ideation, homicidal ideation, and hallucinations. 09:21 Constitutional: Positive for fatigue, malaise. 09:21 Unable to obtain ROS due to obtunded state. Exam: 09:21 Eyes: Pupils equal round and reactive to light, extra-ocular motions intact. Lids and samina lashes normal. Conjunctiva and sclera are non-icteric and not injected. Cornea within normal limits. Periorbital areas with no swelling, redness, or edema. 09:21 ENT: Posterior pharynx: no acute changes, Airway: normal, no evidence of obstruction. 09:21 Neck: Exam negative for 09:21 Cardiovascular: Rate: tachycardic, Rhythm: irregularly irregular, Pulses: Pulses are 2+ in bilateral radial, brachial, femoral, popliteal, posterior tibial and and dorsalis pedis arteries.. Heart sounds: normal, Edema: is not appreciated, JVD: is not appreciated. 09:21 Respiratory: mild respiratory distress is noted, moderate respiratory distress is noted, Respirations: labored breathing, that is mild, Breath sounds: decreased breath sounds, rhonchi, + upper airway congestion. Vital Signs: 09:10 BP 87 / 60; Pulse 107; Resp 24; Temp 97.1; Pulse Ox 100% on 15% Non-rebreather mask; sv 10:08 Weight 84.82 kg; hb 10:35 BP 104 / 80; Pulse 103; Resp 25; Pulse Ox 100% on 80% BiPAP; hb 11:15 BP 122 / 74; Pulse 97; Resp 22; Pulse Ox 97% on 35% BiPAP; hb 12:00 BP 115 / 60; Pulse 78; Resp 22; Pulse Ox 95% on BiPAP; sv 13:00 BP 114 / 59; Pulse 72; Resp 20; Pulse Ox 95% on BiPAP; sv 13:45 BP 127 / 48; Pulse 74; Resp 16; Pulse Ox 97% on BiPAP; sv 14:17 Pulse 86; Pulse Ox 59% on R/A; sv 14:38 BP 130 / 64; Pulse 82; Resp 14; Pulse Ox 95% on 6 lpm NC; sv 10:35 BIPAP 15/7, R14, 80% hb MDM: 09:17 Patient medically screened. [facility] 09:24 Data reviewed: vital signs, nurses notes, lab test result(s), EKG, radiologic studies, [facility] CT scan, plain films. 08/25 09:20 Order name: Basic Metabolic Panel; Complete Time: 11:04 [facility] 08/25 09:20 Order name: CBC with Diff; Complete Time: 11:04 [facility] 08/25 09:20 Order name: LFT's; Complete Time: 11:04 [facility] 08/25 09:20 Order name: Magnesium; Complete Time: 11:04 [facility] 08/25 09:20 Order name: NT PRO-BNP; Complete Time: 11:04 [facility] 08/25 09:20 Order name: PT-INR; Complete Time: 11:04 [facility] 08/25 09:20 Order name: Troponin (emerg Dept Use Only); Complete Time: 11:04 [facility] 08/25 09:20 Order name: Amylase, Serum; Complete Time: 11:04 08/25 09:20 Order name: Blood Culture Adult (2) 08/25 09:20 Order name: Ckmb; Complete Time: 11:04 [facility] 08/25 09:20 Order name: CPK; Complete Time: 11:04 [facility] 08/25 09:20 Order name: Lactate; Complete Time: 11:04 [facility] 08/25 09:20 Order name: Lipase; Complete Time: 11:04 [facility] 08/25 09:20 Order name: Procalcitonin; Complete Time: 11:04 [facility] 08/25 09:20 Order name: XRAY Chest (1 view); Complete Time: 11:04 [facility] 08/25 09:20 Order name: Ptt, Activated; Complete Time: 11:04 [facility] 08/25 09:20 Order name: Urine Microscopic Only [facility] 08/25 09:20 Order name: Urine Culture [facility] 08/25 09:20 Order name: TSH; Complete Time: 11:04 [facility] 08/25 09:25 Order name: ABG; Complete Time: 11:59 [facility] 08/25 09:25 Order name: CT Head Brain wo Cont; Complete Time: 11:04 [facility] 08/25 09:36 Order name: Glucose, Ancillary Testing; Complete Time: 09:42 EDMS 08/25 09:44 Order name: CT Chest Abdomen Pelvis W/O Contrast: no iv, no oral; Complete Time: 11:04 [facility] 08/25 10:15 Order name: BIPAP [facility] 08/25 10:26 Order name: T4 Free; Complete Time: 11:04 [facility] 08/25 11:29 Order name: Urine Dipstick--Ancillary (enter results) 08/25 11:49 Order name: Urine Dipstick-Ancillary; Complete Time: 11:59 EDMS 08/25 09:20 Order name: EKG; Complete Time: 09:23 [facility] 08/25 09:20 Order name: Cardiac monitoring; Complete Time: 10:09 [facility] 08/25 09:20 Order name: EKG - Nurse/Tech; Complete Time: 10:40 [facility] 08/25 09:20 Order name: IV Saline Lock; Complete Time: 10: [facility] 08/25 09:20 Order name: Labs collected and sent; Complete Time: 10: [facility] 08/25 09:20 Order name: O2 Per Protocol; Complete Time: 10: [facility] 08/25 09:20 Order name: O2 Sat Monitoring; Complete Time: 10: [facility] 08/25 09:20 Order name: Accucheck; Complete Time: 10:40 [facility] 08/25 09:20 Order name: IV Saline Lock - Large Bore; Complete Time: 10:40 [facility] 08/25 09:20 Order name: Urine Dipstick-Ancillary (obtain specimen); Complete Time: 11:31 [facility] 08/25 09:20 Order name: Lawler; Complete Time: 11:26 [facility] Administered Medications: Discontinued: NS 0.9% (30 ml/kg) 30 ml/kg IV at bolus once; Sepsis Protocol 09:54 Drug: NARcan 0.4 mg Route: IVP; Site: left wrist; hb 11:15 Follow up: Response: No adverse reaction sv 10:39 Drug: Digoxin 0.5 mg Route: IVP; Site: right wrist; sv 11:15 Follow up: Response: No adverse reaction sv 10:39 Drug: Xopenex 1.25 mg Route: Inhalation; sv 10:39 Drug: AtroVENT Aerosol 0.5 mg Route: Inhalation; sv 10:39 Drug: Xopenex 1.25 mg Route: Inhalation; sv 10:40 Drug: NS 0.9% (30 ml/kg) 30 ml/kg Route: IV; Rate: bolus; Site: right wrist; sv 10:50 Drug: SOLU-Medrol 125 mg Route: IVP; Site: right wrist; sv 11:15 Follow up: Response: No adverse reaction sv 10:53 Drug: Zosyn 3.375 grams Route: IVPB; Infused Over: 60 mins; Site: right wrist; sv 11:53 Follow up: Response: No adverse reaction; IV Status: Completed infusion; IV Intake: sv 100ml Point of Care Testing: Blood Glucose: 09:20 Blood Glucose: 160 mg/dL; sv Ranges: Critical Glucose Levels:Adult <50 mg/dl or >400 mg/dl <40 mg/dl or >180 mg/dl Disposition: 08/26/19 11:07 Hospitalization ordered by Alicia Christian for Inpatient Admission. Preliminary diagnosis are Pneumonia due to other specified bacteria - aspiration, Hypoxemia, Atrial fibrillation and flutter, Hypotension, Respiratory failure, unspecified with hypercapnia, Altered mental status, unspecified. - Bed requested for Telemetry/MedSurg (Inpatient). - Status is Inpatient Admission. sv - Condition is Serious. - Problem is new. - Symptoms have improved. Signatures: Dispatcher [employer] EDMandy Caraballo RN RN sv Anderson, Corey, MD MD cha Baxter, Heather, RN RN Keyana Oleary Corrections: (The following items were deleted from the chart) 11:38 09:44 Central Line Kit ordered. [facility] 13:42 11:07 Hospitalization Ordered by Alicia Christian MD for Inpatient Admission. eb Preliminary diagnosis is Pneumonia due to other specified bacteria - aspiration; Hypoxemia; Atrial fibrillation and flutter; Hypotension; Respiratory failure, unspecified with hypercapnia; Altered mental status, unspecified. Bed requested for Telemetry/MedSurg (Inpatient). Status is Inpatient Admission. Condition is Serious. Problem is new. Symptoms have improved. [facility] 15:06 13:42 08/26/2019 11:07 Hospitalization Ordered by Alicia Christian MD for Inpatient sv Admission. Preliminary diagnosis is Pneumonia due to other specified bacteria - aspiration; Hypoxemia; Atrial fibrillation and flutter; Hypotension; Respiratory failure, unspecified with hypercapnia; Altered mental status, unspecified. Bed requested for Telemetry/MedSurg (Inpatient). Status is Inpatient Admission. Condition is Serious. Problem is new. Symptoms have improved. eb
[2019-08-26 11:49] LABS: Urine Blood TRACE (NEG); Urine Glucose NEGATIVE (NEG); Urine Protein 1+ (NEG); Urine Specific Gravity 1.015 (1.005-1.030)
[2019-08-26 12:21] LABS: Urine Amorphous Sediment 1+ /HPF (NONE SEEN); Urine Bacteria 20-50 /HPF (<20); Urine Culture Reflex Order NOT NEEDED; Urine RBC <5 /HPF (NONE SEEN)
[2019-08-26] MEDS ORDERED: CYCLOBENZAPRINE 10 MG TAB PO PRN (14:11)
[2019-08-26] MEDS ORDERED: ACETAMINOPHEN 500 MG TAB PO PRN (15:29)
[2019-08-26] MEDS ORDERED: ONDANSETRON 4 MG/2 ML VIAL IV PRN (15:29)
[2019-08-26] MEDS ORDERED: NA CHLORIDE 0.9% 1,000 ML IV SCH (15:29)
[2019-08-26] MEDS: ALBUTEROL 2.5 MG/3 ML NEB SOL NEB SCH ×2 (16:00→20:00)
[2019-08-26] MEDS: IPRATROPIUM BROM 0.5MG/2.5ML NEB SCH ×2 (16:00→20:00)
[2019-08-26] MEDS ORDERED: ENOXAPARIN 40 MG/0.4 ML SQ SCH (16:00)
[2019-08-26 16:21] LABS: ALT/SGPT 26 U/L (12-78); AST/SGOT 21 U/L (15-37); Albumin 2.5 g/dL (3.4-5.0); Alkaline Phosphatase 85 U/L (45-117); BUN Blood Urea Nitrogen 26 mg/dL (7-18); Bicarbonate 34 mmol/L (21-32); Bilirubin Total 0.4 mg/dL (0.2-1.0); Glucose Level 161 mg/dL (74-106); Potassium 4.3 mmol/L (3.5-5.1); Protein, Total 7.5 g/dL (6.4-8.2); Sodium Level 143 mmol/L (136-145)
[2019-08-26 16:34] VITALS: BMI 29.2
[2019-08-26 16:35] VITALS: O2SAT 99
[2019-08-26] MEDS ORDERED: PIPER/TAZO/NS 3.375gm 3.375 GM/100 ML BAG IVPB SCH ×2 (18:00→20:00)
[2019-08-26] MEDS ORDERED: CLINDAMYCIN INJ 600 MG in NA CHLORIDE 0.9% 50 ML IV SCH (18:00)
[2019-08-26] MEDS ORDERED: QUETIAPINE FUMARATE 50 MG PO SCH (21:00)
[2019-08-26] MEDS ORDERED: QUETIAPINE 25 MG TAB PO SCH (21:00)
[2019-08-26] MEDS ORDERED: GABAPENTIN 400 MG CAP PO SCH (21:00)
[2019-08-26] MEDS ORDERED: SPIRONOLACTONE 25 MG TABLET PO SCH (21:00)
[2019-08-26 21:21] VITALS: BP 90/37; TEMP 96.5
--- NOTE | 2019-08-27 03:01 | HP ---
Date of Admission: 08/26/2019 History Of Present Illness: This is a 68-year-old female with history of multiple medical problems, including a large edema formation of the brain, nonoperable, been in hospice for almost 4 years and s urgery booked last summer by her daughter, but did not because of severe osteoarthritis with history of CHF, hypertension, neuropathy, who presented to emergency room with progressive shortness of breat h and low O2 saturation. Apparently, patient on home oxygen. According to her daughter health has b een progressively worse over the last 3 days and home O2 is not enough to improve it. Currently miranda es any fevers or chills. There was no night sweats. There is no chest pain or abdominal pain. They decided to bring her to the emergency room to be evaluated. In the ER patient was saturating in the 60s. She was placed on non-rebreather. 100% O2 saturation and she still did not even improve to 90 , so she was placed on BiPAP. According to the family, patient was DNR/DNI, they did not want her to be intubated and at the time I met the family, both daughters insisted that they would like to remov e the CPAP when the rest of the family arrived as they feel the patient would be more appropriate to be on hospice rather than have intervention to give her alive when she is more bedridden. Currently patient is unresponsive. She is on BiPAP. Review of Systems: Otherwise unobtainable. Most of the HPI is obtained from the chart and the family. 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 Past Surgical History: Significant for gallbladder stent. Family History: Father of [place]. Mother of leukemia. Allergies: MORPHINE. Social History: She is . She has 3 kids. She does not smoke, drink, or use any drugs and s he is not employed. Medications: List not available. Daughter will obtain that shortly. Physical Examination: Vital Signs: Currently blood pressure is 87/60, respiratory rate 24, pulse 107, temperature 97.1, O2 saturation 95% on BiPAP. General: The patient is obtunded, unresponsive to verbal stimuli. HEENT: PERRL. Oral mucosa is dry. Neck: Supple. No JVD. No bruits. Chest: Clear to auscultation. There is no expiratory wheezing. Decreased breath sounds in the base s with fine crackles. Heart: Regular rate and rhythm. S1, S2 normal. No gallop or murmur. Abdomen: Soft, nontender. No masses. No hepatosplenomegaly. Positive bowel sounds. Extremities: No clubbing. No signs or edema. No calf tenderness. Neurologic: Deferred. Laboratory Data: In the emergency room showed CBC with white blood cells 14.7, hemoglobin 18.8, plat elets 420. ABG showed a pH of 7.17, CO2 of 103, O2 of 209. Chemistry with carbon dioxide of 37, BUN of 30, GFR 74, calcium 8.4, magnesium 2.6. BNP of 37,924. Troponin 0.12. Albumin 2.5. UA was pos itive with trace of leukocyte esterase and white blood cell as well as the bacteria. Blood culture, urine culture is done and they are pending. CT of the head was done in the ER and it was negative. CT of the abdomen in the ER showed hazy alveolar opacities in the right upper lung field and right mi ddle lobe suspicious for pneumonia. Small bilateral pleural effusion with posterior gutter atelectas is. There is no ascites or acute abdomen noted. Assessment And Plan: This is a 68-year-old female with extensive history of multiple medical problem s, bedridden for the last 4 years due to large arteriovenous malformation in the brain that is nonope rable as well as severe arthritis, presented with progressive shortness of breath. 1.Pneumonia? aspiration on CT of the chest with bilateral pleural effusion. We will start patient o n IV antibiotics. She already received Zosyn in the ER. We will continue that and add clindamycin t o cover anaerobic given the chance of aspiration pneumonitis is very high. 2.Elevated BMP. We will start patient on diuretics given pleural effusion and questionable volume o verload. 3.Long discussion with both daughters about goal of care and perspective of patient's condition. Mario th daughters say strongly that their mother has no quality of life and they would like to stop the Bi PAP at this point and keep patient on oxygen. We will also discuss with her other sister to see if s he is agreeable with stopping antibiotic and medications again back to hospice. They feel their moth er does not want to be intubated or have any heroic measures to be alive. So, we will wait for the t hird daughter to arrive and then we will stop BiPAP and will discharge on antibiotics. We will also consult hospice to see the patient off steroids, and patient probably will end up. If she continues to deteriorate, to go to inpatient hospice unless she during her admission. SALOMON/MICHELLE Voice ID: [id number]
[2019-08-27] MEDS ORDERED: BISACODYL 10 MG RECTAL SUPP PR SCH (09:00)
[2019-08-27] MEDS ORDERED: FUROSEMIDE 20 MG TABLET PO SCH (09:00)
--- NOTE | 2019-08-27 09:16 | EKG ---
Test Date: 2019-08-26 Test Time: 10:26:19 Certified Pharmacist Assistant: FEMI MEASUREMENT RESULTS: Intervals: Rate: 104 HI: 176 QRSD: 150 QT: 382 QTc: 502 [place]: P: 74 HI: 176 QRS: -74 T: 88 INTERPRETIVE STATEMENTS: Sinus tachycardia with premature atrial complexes Possible Left atrial enlargement Left axis deviation Right bundle branch block Inferior infarct, age undetermined Anterolateral infarct, age undetermined Abnormal ECG Compared to ECG 02/22/2019 07:23:39 Atrial premature complex(es) now present Ventricular premature complex(es) no longer present Myocardial infarct finding still present Electronically Signed On 08-27-19 09:16:01 CDT by Rajiv Jeffries
== END 2019-08-26 20:00 | disposition hospice, inpatient (51) | DRG 177 ==
LOC: ER 09:13 → ERHOLD 11:11 → 2ND 13:48
PROVIDERS: ADMIT Internal Medicine; ATTEND Internal Medicine
DX: J69.0 Pneumonitis due to inhalation of food and vomit (principal); Q28.2 Arteriovenous malformation of cerebral vessels; I11.0 Hypertensive heart disease with heart failure; I50.9 Heart failure, unspecified
CPT/HCPCS: 36415; 51702; 70450; 71045; 71250; 74176; 80048; 80053; 80076; 81003; 81015; 82150; 82550; 82553; 82805; 82947; 83605; 83690; 83735; 83880; 84145; 84439; 84443; 84484; 85025; 85610; 85730; 87040; 87077; 87086; 87088; 87186; 93005; 94660; 94760; 96365; 96375; 99291; 99292; J1160; J2250; J2310; J2543; J2930; J7030

== ENCOUNTER 2019-08-26 21:39 | Inpatient (IN) | payer OTHER ==
--- OUTSIDE RECORDS SUMMARY | 2019-08-26 22:10 | XMS REPORT ---
:1950 [facility] Address [facility] [address] [place] [address] Care Team Providers Name Role Phone EMREPAYTON [...] Value Reference Range Comments MAGNESIUM (BEAKER) (test idzx=677) 2.4 mg/dL 1.6-2.6 BASIC METABOLIC [id number] 06:38:00 Test Item Value Reference Range Comments SODIUM (BEAKER) (test 137 meq/L 136-145 gowz=545) POTASSIUM (BEAKER) (test 4.1 meq/L 3.5-5.1 wlpm=993) CHLORIDE (BEAKER) (test 99 meq/L 98-107 rxmp=333) CO2 (BEAKER) (test 29 meq/L 22-29 tqyu=053) BLOOD UREA NITROGEN 6 mg/dL 7-21 (BEAKER) (test mnyj=706) CREATININE (BEAKER) (test 0.61 mg/dL 0.57-1.25 ynxe=092) GLUCOSE RANDOM (BEAKER) 163 mg/dL 70-105 (test wnju=282) CALCIUM (BEAKER) (test 8.1 mg/dL 8.4-10.2 rqqj=016) EGFR (BEAKER) (test 97 mL/min/1.73 sq m ESTIMATED GFR IS NOT xaqt=4588) ACCURATE CREATININE CLEARANCE IN PREDICTING GLOMERULAR FILTRATION RATE. ESTIMATED GFR IS NOT APPLICABLE FOR DIALYSIS PATIENTS. HEPATIC FUNCTION [id number] 06:38:00 Test Item Value Reference Range Comments TOTAL PROTEIN (BEAKER) (test ftpw=239) 6.5 gm/dL 6.0-8.3 ALBUMIN (BEAKER) (test ecgn=0818) 3.0 g/dL 3.5-5.0 BILIRUBIN TOTAL (BEAKER) (test apmu=584) 0.2 mg/dL 0.2-1.2 BILIRUBIN DIRECT (BEAKER) (test gxkr=160) 0.2 mg/dL 0.1-0.5 ALKALINE PHOSPHATASE (BEAKER) (test ospu=638) 72 U/L 40-150 AST (SGOT) (BEAKER) (test dvue=072) 12 U/L 5-34 ALT (SGPT) (BEAKER) (test ibbz=889) 10 U/L 6-55 CBC W/PLT COUNT & AUTO [id number] 06:21:00 Test Item Value Reference Range Comments WHITE BLOOD CELL COUNT (BEAKER) (test tbwf=081) 12.2 K/ L 3.5-10.5 RED BLOOD CELL COUNT (BEAKER) (test kewa=812) 3.53 M/ L 3.93-5.22 HEMOGLOBIN (BEAKER) (test txci=225) 9.6 GM/DL 11.2-15.7 HEMATOCRIT (BEAKER) (test plfi=336) 33.1 % 34.1-44.9 MEAN CORPUSCULAR VOLUME (BEAKER) (test fcrm=357) 93.8 fL 79.4-94.8 MEAN CORPUSCULAR HEMOGLOBIN (BEAKER) (test 27.2 pg 25.6-32.2 gknq=145) MEAN CORPUSCULAR HEMOGLOBIN CONC (BEAKER) (test 29.0 GM/DL 32.2-35.5 dppq=773) RED CELL DISTRIBUTION WIDTH (BEAKER) (test 14.7 % 11.7-14.4 wdzy=717) PLATELET COUNT (BEAKER) (test ocnf=673) 351 K/CU MM 150-450 MEAN PLATELET VOLUME (BEAKER) (test uuyz=974) 9.4 fL 9.4-12.3 NUCLEATED RED BLOOD CELLS (BEAKER) (test 0 /100 WBC 0-0 anpl=070) NEUTROPHILS RELATIVE PERCENT (BEAKER) (test 73 % umet=578) LYMPHOCYTES RELATIVE PERCENT (BEAKER) (test 20 % rzor=954) MONOCYTES RELATIVE PERCENT (BEAKER) (test 6 % otxe=022) EOSINOPHILS RELATIVE PERCENT (BEAKER) (test 0 % vogd=694) BASOPHILS RELATIVE PERCENT (BEAKER) (test 1 % crsb=268) NEUTROPHILS ABSOLUTE COUNT (BEAKER) (test 8.86 K/ L 1.56-6.13 ollk=630) LYMPHOCYTES ABSOLUTE COUNT (BEAKER) (test 2.42 K/ L 1.18-3.74 jdsi=952) MONOCYTES ABSOLUTE COUNT (BEAKER) (test 0.73 K/ L 0.24-0.36 wdsz=199) EOSINOPHILS ABSOLUTE COUNT (BEAKER) (test 0.00 K/ L 0.04-0.36 lety=394) BASOPHILS ABSOLUTE COUNT (BEAKER) (test 0.06 K/ L 0.01-0.08 qjaj=682) IMMATURE GRANULOCYTES-RELATIVE PERCENT (BEAKER) 1 % 0-1 (test ibho=6383) POCT-GLUCOSE [id number] 11:19:00 Test Item Value Reference Range Comments POC-GLUCOSE METER (BEAKER) 131 mg/dL 70-110 : TESTED AT [address] (test uwkq=3215) [facility], [id number]: Disability Services Coordinator/Hand Button Splitter FO=[id number] for CHASE ROPER CBC W/PLT COUNT & AUTO [id number] 06:51:00 Test Item Value Reference Range Comments WHITE BLOOD CELL COUNT (BEAKER) (test dzlj=298) 14.9 K/ L 3.5-10.5 RED BLOOD CELL COUNT (BEAKER) (test wqnu=544) 3.83 M/ L 3.93-5.22 HEMOGLOBIN (BEAKER) (test algn=563) 10.5 GM/DL 11.2-15.7 HEMATOCRIT (BEAKER) (test vapk=562) 35.4 % 34.1-44.9 MEAN CORPUSCULAR VOLUME (BEAKER) (test kbgf=994) 92.4 fL 79.4-94.8 MEAN CORPUSCULAR HEMOGLOBIN (BEAKER) (test 27.4 pg 25.6-32.2 gcji=484) MEAN CORPUSCULAR HEMOGLOBIN CONC (BEAKER) (test 29.7 GM/DL 32.2-35.5 vkpb=301) RED CELL DISTRIBUTION WIDTH (BEAKER) (test 14.6 % 11.7-14.4 hywf=809) PLATELET COUNT (BEAKER) (test trtr=250) 380 K/CU MM 150-450 MEAN PLATELET VOLUME (BEAKER) (test ijmk=987) 9.7 fL 9.4-12.3 NUCLEATED RED BLOOD CELLS (BEAKER) (test 0 /100 WBC 0-0 eihd=035) NEUTROPHILS RELATIVE PERCENT (BEAKER) (test 77 % fjmq=835) LYMPHOCYTES RELATIVE PERCENT (BEAKER) (test 16 % appp=258) MONOCYTES RELATIVE PERCENT (BEAKER) (test 6 % retq=043) EOSINOPHILS RELATIVE PERCENT (BEAKER) (test 0 % hdbi=337) BASOPHILS RELATIVE PERCENT (BEAKER) (test 1 % gili=458) NEUTROPHILS ABSOLUTE COUNT (BEAKER) (test 11.39 K/ L 1.56-6.13 eorm=361) LYMPHOCYTES ABSOLUTE COUNT (BEAKER) (test 2.35 K/ L 1.18-3.74 vsvn=006) MONOCYTES ABSOLUTE COUNT (BEAKER) (test 0.93 K/ L 0.24-0.36 ilce=043) EOSINOPHILS ABSOLUTE COUNT (BEAKER) (test 0.00 K/ L 0.04-0.36 mngd=485) BASOPHILS ABSOLUTE COUNT (BEAKER) (test 0.08 K/ L 0.01-0.08 fsaz=100) IMMATURE GRANULOCYTES-RELATIVE PERCENT (BEAKER) 1 % 0-1 (test szlv=9981) [id number] 17:43:00 Test Item Value Reference Range Comments POTASSIUM (BEAKER) (test 4.7 meq/L 3.5-5.1 Specimen slightly hemolyzed kcma=273) [id number] 05:50:00 Test Item Value Reference Range Comments MAGNESIUM (BEAKER) (test ggmb=469) 2.0 mg/dL 1.6-2.6 BASIC METABOLIC [id number] 05:50:00 Test Item Value Reference Range Comments SODIUM (BEAKER) (test 140 meq/L 136-145 jmco=696) POTASSIUM (BEAKER) (test 2.9 meq/L 3.5-5.1 petn=833) CHLORIDE (BEAKER) (test 93 meq/L 98-107 ksoc=750) CO2 (BEAKER) (test 39 meq/L 22-29 gzgb=681) BLOOD UREA NITROGEN 12 mg/dL 7-21 (BEAKER) (test yfef=783) CREATININE (BEAKER) (test 0.75 mg/dL 0.57-1.25 gzip=053) GLUCOSE RANDOM (BEAKER) 155 mg/dL 70-105 (test esgg=426) CALCIUM (BEAKER) (test 8.4 mg/dL 8.4-10.2 dhnq=019) EGFR (BEAKER) (test 77 mL/min/1.73 sq m ESTIMATED GFR IS NOT givy=7390) ACCURATE CREATININE CLEARANCE IN PREDICTING GLOMERULAR FILTRATION RATE. ESTIMATED GFR IS NOT APPLICABLE FOR DIALYSIS PATIENTS. HEPATIC FUNCTION [id number] 05:50:00 Test Item Value Reference Range Comments TOTAL PROTEIN (BEAKER) (test edlq=542) 7.0 gm/dL 6.0-8.3 ALBUMIN (BEAKER) (test uooi=0170) 3.2 g/dL 3.5-5.0 BILIRUBIN TOTAL (BEAKER) (test duls=922) 0.3 mg/dL 0.2-1.2 BILIRUBIN DIRECT (BEAKER) (test eqrx=097) 0.2 mg/dL 0.1-0.5 ALKALINE PHOSPHATASE (BEAKER) (test cfpz=638) 78 U/L 40-150 AST (SGOT) (BEAKER) (test sydp=699) 9 U/L 5-34 ALT (SGPT) (BEAKER) (test mcmi=635) 10 U/L 6-55 CBC W/PLT COUNT & AUTO [id number] 05:42:00 Test Item Value Reference Range Comments WHITE BLOOD CELL COUNT (BEAKER) (test gbmf=532) 14.3 K/ L 3.5-10.5 RED BLOOD CELL COUNT (BEAKER) (test fxda=446) 3.93 M/ L 3.93-5.22 HEMOGLOBIN (BEAKER) (test pdmz=013) 10.9 GM/DL 11.2-15.7 HEMATOCRIT (BEAKER) (test xkyf=988) 35.5 % 34.1-44.9 MEAN CORPUSCULAR VOLUME (BEAKER) (test kqar=713) 90.3 fL 79.4-94.8 MEAN CORPUSCULAR HEMOGLOBIN (BEAKER) (test 27.7 pg 25.6-32.2 oaxf=945) MEAN CORPUSCULAR HEMOGLOBIN CONC (BEAKER) (test 30.7 GM/DL 32.2-35.5 hkzo=495) RED CELL DISTRIBUTION WIDTH (BEAKER) (test 14.2 % 11.7-14.4 govs=332) PLATELET COUNT (BEAKER) (test iwaj=111) 377 K/CU MM 150-450 MEAN PLATELET VOLUME (BEAKER) (test cjuz=664) 9.7 fL 9.4-12.3 NUCLEATED RED BLOOD CELLS (BEAKER) (test 0 /100 WBC 0-0 viqn=015) NEUTROPHILS RELATIVE PERCENT (BEAKER) (test 79 % juqy=888) LYMPHOCYTES RELATIVE PERCENT (BEAKER) (test 13 % zxfb=433) MONOCYTES RELATIVE PERCENT (BEAKER) (test 8 % xyrm=985) EOSINOPHILS RELATIVE PERCENT (BEAKER) (test 0 % wqaj=846) BASOPHILS RELATIVE PERCENT (BEAKER) (test 0 % ovme=043) NEUTROPHILS ABSOLUTE COUNT (BEAKER) (test 11.24 K/ L 1.56-6.13 swrs=589) LYMPHOCYTES ABSOLUTE COUNT (BEAKER) (test 1.85 K/ L 1.18-3.74 daoo=077) MONOCYTES ABSOLUTE COUNT (BEAKER) (test 1.08 K/ L 0.24-0.36 qrpb=021) EOSINOPHILS ABSOLUTE COUNT (BEAKER) (test 0.00 K/ L 0.04-0.36 claa=633) BASOPHILS ABSOLUTE COUNT (BEAKER) (test 0.06 K/ L 0.01-0.08 uign=234) IMMATURE GRANULOCYTES-RELATIVE PERCENT (BEAKER) 1 % 0-1 (test ufnz=7547) B-TYPE NATRIURETIC FACTOR (BNP)2019-05-30 05:24:00 Test Item Value Reference Range Comments B-TYPE NATRIURETIC PEPTIDE (BEAKER) (test 158 pg/mL 0-100 vqbn=975) RAD, CHEST, 1 VIEW, NON [id number] 01:11:00Reason for exam:->sobShould this be performed at [...] Signed: Ary Gonzalez Verified Date/Time: 05/30/2019 01:11:55 [id number] 22:57:00 Test Item Value Reference Range Comments MAGNESIUM (BEAKER) (test vznd=671) 1.8 mg/dL 1.6-2.6 COMPREHENSIVE METABOLIC [id number] 22:57:00 Test Item Value Reference Range Comments TOTAL PROTEIN (BEAKER) 7.4 gm/dL 6.0-8.3 (test nkyk=963) ALBUMIN (BEAKER) (test 3.3 g/dL 3.5-5.0 urhe=3803) ALKALINE PHOSPHATASE 82 U/L 40-150 (BEAKER) (test zylk=906) BILIRUBIN TOTAL (BEAKER) 0.4 mg/dL 0.2-1.2 (test qmog=921) SODIUM (BEAKER) (test 138 meq/L 136-145 nqfh=236) POTASSIUM (BEAKER) (test 3.0 meq/L 3.5-5.1 xvhs=769) CHLORIDE (BEAKER) (test 93 meq/L 98-107 kuoc=033) CO2 (BEAKER) (test 36 meq/L 22-29 scqk=528) BLOOD UREA NITROGEN 11 mg/dL 7-21 (BEAKER) (test irfq=863) CREATININE (BEAKER) (test 0.75 mg/dL 0.57-1.25 dvol=314) GLUCOSE RANDOM (BEAKER) 138 mg/dL 70-105 (test paau=451) CALCIUM (BEAKER) (test 8.4 mg/dL 8.4-10.2 mvlw=329) AST (SGOT) (BEAKER) (test 10 U/L 5-34 kuhu=280) ALT (SGPT) (BEAKER) (test 11 U/L 6-55 rayb=542) EGFR (BEAKER) (test 77 mL/min/1.73 sq m ESTIMATED GFR IS NOT spvm=3675) ACCURATE CREATININE CLEARANCE IN PREDICTING GLOMERULAR FILTRATION RATE. ESTIMATED GFR IS NOT APPLICABLE FOR DIALYSIS PATIENTS. PROTHROMBIN [id number] 22:37:00 Test Item Value Reference Range Comments PROTIME (BEAKER) (test lmta=146) 14.7 seconds 11.9-14.2 INR (BEAKER) (test xkdu=142) 1.2 <=5.9 Effective 11/08/2018: PT Reference Range ChangeNew: 11.9-14.2 Previous: 11.7- 14.7RECOMMENDED COUMADIN/WARFARIN INR THERAPY RANGESSTANDARD DOSE: 2.0-3.0 Includes: PROPHYLAXIS for venous thrombosis, systemic embolization; TREATMENT for venous thrombosis and/or pulmonary embolus.HIGH RISK: Target INR is2.5-3.5 for patients wiht mechanical heart valves.CBC W/PLT COUNT & AUTO [id number] 22:32:00 Test Item Value Reference Range Comments WHITE BLOOD CELL COUNT (BEAKER) (test ubwo=971) 18.7 K/ L 3.5-10.5 RED BLOOD CELL COUNT (BEAKER) (test sdmm=905) 4.00 M/ L 3.93-5.22 HEMOGLOBIN (BEAKER) (test ecda=712) 11.1 GM/DL 11.2-15.7 HEMATOCRIT (BEAKER) (test crtl=524) 35.8 % 34.1-44.9 MEAN CORPUSCULAR VOLUME (BEAKER) (test endu=773) 89.5 fL 79.4-94.8 MEAN CORPUSCULAR HEMOGLOBIN (BEAKER) (test 27.8 pg 25.6-32.2 mhec=859) MEAN CORPUSCULAR HEMOGLOBIN CONC (BEAKER) (test 31.0 GM/DL 32.2-35.5 vjvm=467) RED CELL DISTRIBUTION WIDTH (BEAKER) (test 14.2 % 11.7-14.4 vntf=331) PLATELET COUNT (BEAKER) (test krnw=652) 400 K/CU MM 150-450 MEAN PLATELET VOLUME (BEAKER) (test acwg=038) 9.2 fL 9.4-12.3 NUCLEATED RED BLOOD CELLS (BEAKER) (test 0 /100 WBC 0-0 smez=982) NEUTROPHILS RELATIVE PERCENT (BEAKER) (test 82 % ebzh=235) LYMPHOCYTES RELATIVE PERCENT (BEAKER) (test 10 % mcap=862) MONOCYTES RELATIVE PERCENT (BEAKER) (test 6 % gcsv=042) EOSINOPHILS RELATIVE PERCENT (BEAKER) (test 0 % aqiz=975) BASOPHILS RELATIVE PERCENT (BEAKER) (test 0 % fewy=401) NEUTROPHILS ABSOLUTE COUNT (BEAKER) (test 15.42 K/ L 1.56-6.13 lnqs=575) LYMPHOCYTES ABSOLUTE COUNT (BEAKER) (test 1.94 K/ L 1.18-3.74 skni=839) MONOCYTES ABSOLUTE COUNT (BEAKER) (test 1.18 K/ L 0.24-0.36 qppg=822) EOSINOPHILS ABSOLUTE COUNT (BEAKER) (test 0.00 K/ L 0.04-0.36 mmsb=542) BASOPHILS ABSOLUTE COUNT (BEAKER) (test 0.07 K/ L 0.01-0.08 uwnj=509) IMMATURE GRANULOCYTES-RELATIVE PERCENT (BEAKER) 1 % 0-1 (test hnke=3347) POCT-GLUCOSE [id number] 13:14:00 Test Item Value Reference Range Comments POC-GLUCOSE METER (BEAKER) 151 mg/dL 70-110 TESTED AT [address] (test wojf=1262) [facility] [address] [id number] 06:59:00 Test Item Value Reference Range Comments PHOSPHORUS (BEAKER) (test aneu=241) 4.3 mg/dL 2.3-4.7 [id number] 06:59:00 Test Item Value Reference Range Comments MAGNESIUM (BEAKER) (test msxh=941) 2.0 mg/dL 1.6-2.6 CBC W/PLT COUNT & AUTO [id number] 06:28:00 Test Item Value Reference Range Comments WHITE BLOOD CELL COUNT (BEAKER) (test aygk=373) 13.0 K/ L 3.5-10.5 RED BLOOD CELL COUNT (BEAKER) (test sibo=374) 3.83 M/ L 3.93-5.22 HEMOGLOBIN (BEAKER) (test hrxe=356) 10.8 GM/DL 11.2-15.7 HEMATOCRIT (BEAKER) (test bdcf=055) 34.4 % 34.1-44.9 MEAN CORPUSCULAR VOLUME (BEAKER) (test nnav=412) 89.8 fL 79.4-94.8 MEAN CORPUSCULAR HEMOGLOBIN (BEAKER) (test 28.2 pg 25.6-32.2 ftfa=381) MEAN CORPUSCULAR HEMOGLOBIN CONC (BEAKER) (test 31.4 GM/DL 32.2-35.5 yrld=621) RED CELL DISTRIBUTION WIDTH (BEAKER) (test 15.2 % 11.7-14.4 epte=598) PLATELET COUNT (BEAKER) (test zvil=742) 435 K/CU MM 150-450 MEAN PLATELET VOLUME (BEAKER) (test bxap=137) 9.0 fL 9.4-12.3 NUCLEATED RED BLOOD CELLS (BEAKER) (test 0 /100 WBC 0-0 jyvg=697) NEUTROPHILS RELATIVE PERCENT (BEAKER) (test 65 % nzbz=348) LYMPHOCYTES RELATIVE PERCENT (BEAKER) (test 27 % nxbr=592) MONOCYTES RELATIVE PERCENT (BEAKER) (test 6 % rfqa=208) EOSINOPHILS RELATIVE PERCENT (BEAKER) (test 0 % uhmx=008) BASOPHILS RELATIVE PERCENT (BEAKER) (test 1 % dkzs=115) NEUTROPHILS ABSOLUTE COUNT (BEAKER) (test 8.42 K/ L 1.56-6.13 rove=067) LYMPHOCYTES ABSOLUTE COUNT (BEAKER) (test 3.50 K/ L 1.18-3.74 tuce=217) MONOCYTES ABSOLUTE COUNT (BEAKER) (test 0.81 K/ L 0.24-0.36 odbt=789) EOSINOPHILS ABSOLUTE COUNT (BEAKER) (test 0.00 K/ L 0.04-0.36 knpu=867) BASOPHILS ABSOLUTE COUNT (BEAKER) (test 0.07 K/ L 0.01-0.08 near=086) IMMATURE GRANULOCYTES-RELATIVE PERCENT (BEAKER) 1 % 0-1 (test dqqb=4518) POCT-GLUCOSE [id number] 06:13:00 Test Item Value Reference Range Comments POC-GLUCOSE METER (BEAKER) 130 mg/dL 70-110 TESTED AT [address] (test mzdk=7850) [facility] [address] POCT-GLUCOSE [id number] 01:55:00 Test Item Value Reference Range Comments POC-GLUCOSE METER (BEAKER) 122 mg/dL 70-110 TESTED AT [address] (test qczw=4077) [facility] [address] POCT-GLUCOSE [id number] 00:26:00 Test Item Value Reference Range Comments POC-GLUCOSE METER (BEAKER) 131 mg/dL 70-110 TESTED AT [address] (test rckr=4109) [place] [id number] POCT-GLUCOSE [id number] 16:48:00 Test Item Value Reference Range Comments POC-GLUCOSE METER (BEAKER) 101 mg/dL 70-110 TESTED AT [address] (test fbrp=9735) [place] [address] BODY FLUID CULTURE + GRAM [id number] 13:32:00 Test Item Value Reference Range Comments CULTURE (BEAKER) (test 3+ Nelly glabrata hbkx=2439) GRAM STAIN RESULT (BEAKER) (test <1+ WBCs iuep=7532) GRAM STAIN RESULT (BEAKER) (test 1+ budding yeast xwbw=52129) POCT-GLUCOSE [id number] 12:12:00 Test Item Value Reference Range Comments POC-GLUCOSE METER (BEAKER) 172 mg/dL 70-110 TESTED AT [address] (test dmkd=1424) [place] [address] POCT-GLUCOSE [id number] 08:02:00 Test Item Value Reference Range Comments POC-GLUCOSE METER (BEAKER) 126 mg/dL 70-110 TESTED AT [address] (test eesw=7511) [place] [address] [id number] 07:00:00 Test Item Value Reference Range Comments PHOSPHORUS (BEAKER) (test uqxu=297) 3.3 mg/dL 2.3-4.7 [id number] 07:00:00 Test Item Value Reference Range Comments MAGNESIUM (BEAKER) (test rmtk=831) 1.9 mg/dL 1.6-2.6 CBC W/PLT COUNT & AUTO [id number] 06:24:00 Test Item Value Reference Range Comments WHITE BLOOD CELL COUNT (BEAKER) (test vkds=673) 11.9 K/ L 3.5-10.5 RED BLOOD CELL COUNT (BEAKER) (test xwre=595) 3.88 M/ L 3.93-5.22 HEMOGLOBIN (BEAKER) (test llcu=167) 10.8 GM/DL 11.2-15.7 HEMATOCRIT (BEAKER) (test vkzz=362) 34.9 % 34.1-44.9 MEAN CORPUSCULAR VOLUME (BEAKER) (test jsrk=918) 89.9 fL 79.4-94.8 MEAN CORPUSCULAR HEMOGLOBIN (BEAKER) (test 27.8 pg 25.6-32.2 umoc=338) MEAN CORPUSCULAR HEMOGLOBIN CONC (BEAKER) (test 30.9 GM/DL 32.2-35.5 zmtk=397) RED CELL DISTRIBUTION WIDTH (BEAKER) (test 15.1 % 11.7-14.4 izpd=353) PLATELET COUNT (BEAKER) (test clgv=767) 404 K/CU MM 150-450 MEAN PLATELET VOLUME (BEAKER) (test ezuw=691) 8.9 fL 9.4-12.3 NUCLEATED RED BLOOD CELLS (BEAKER) (test 0 /100 WBC 0-0 cywd=066) NEUTROPHILS RELATIVE PERCENT (BEAKER) (test 63 % rzyf=677) LYMPHOCYTES RELATIVE PERCENT (BEAKER) (test 30 % zhcf=156) MONOCYTES RELATIVE PERCENT (BEAKER) (test 5 % ansn=062) EOSINOPHILS RELATIVE PERCENT (BEAKER) (test 0 % nloa=571) BASOPHILS RELATIVE PERCENT (BEAKER) (test 1 % pkiv=614) NEUTROPHILS ABSOLUTE COUNT (BEAKER) (test 7.53 K/ L 1.56-6.13 pnbt=515) LYMPHOCYTES ABSOLUTE COUNT (BEAKER) (test 3.50 K/ L 1.18-3.74 tpbl=236) MONOCYTES ABSOLUTE COUNT (BEAKER) (test 0.64 K/ L 0.24-0.36 dzed=090) EOSINOPHILS ABSOLUTE COUNT (BEAKER) (test 0.00 K/ L 0.04-0.36 idla=143) BASOPHILS ABSOLUTE COUNT (BEAKER) (test 0.08 K/ L 0.01-0.08 ujei=345) IMMATURE GRANULOCYTES-RELATIVE PERCENT (BEAKER) 1 % 0-1 (test hbjx=6813) POCT-GLUCOSE [id number] 20:45:00 Test Item Value Reference Range Comments POC-GLUCOSE METER (BEAKER) 158 mg/dL 70-110 TESTED AT [facility] [address] [facility] (test ygtl=6496) [facility] [address] POCT-GLUCOSE [id number] 11:32:00 Test Item Value Reference Range Comments POC-GLUCOSE METER (BEAKER) 147 mg/dL 70-110 TESTED AT [facility] [address] [facility] (test esjd=6498) [facility] [address] POCT-GLUCOSE [id number] 09:00:00 Test Item Value Reference Range Comments POC-GLUCOSE METER (BEAKER) 157 mg/dL 70-110 TESTED AT [facility] [address] [facility] (test atdn=4017) [facility] [address] [id number] 06:53:00 Test Item Value Reference Range Comments PHOSPHORUS (BEAKER) (test ztye=655) 2.1 mg/dL 2.3-4.7 [id number] 06:53:00 Test Item Value Reference Range Comments MAGNESIUM (BEAKER) (test dqvx=039) 2.0 mg/dL 1.6-2.6 CBC W/PLT COUNT & AUTO [id number] 06:02:00 Test Item Value Reference Range Comments WHITE BLOOD CELL COUNT (BEAKER) (test hwnp=422) 10.6 K/ L 3.5-10.5 RED BLOOD CELL COUNT (BEAKER) (test zxkq=415) 3.72 M/ L 3.93-5.22 HEMOGLOBIN (BEAKER) (test lrue=986) 10.3 GM/DL 11.2-15.7 HEMATOCRIT (BEAKER) (test cyms=483) 33.3 % 34.1-44.9 MEAN CORPUSCULAR VOLUME (BEAKER) (test kotr=906) 89.5 fL 79.4-94.8 MEAN CORPUSCULAR HEMOGLOBIN (BEAKER) (test 27.7 pg 25.6-32.2 smjj=330) MEAN CORPUSCULAR HEMOGLOBIN CONC (BEAKER) (test 30.9 GM/DL 32.2-35.5 lbfc=493) RED CELL DISTRIBUTION WIDTH (BEAKER) (test 14.6 % 11.7-14.4 ocwl=729) PLATELET COUNT (BEAKER) (test gong=226) 414 K/CU MM 150-450 MEAN PLATELET VOLUME (BEAKER) (test lmqg=717) 9.4 fL 9.4-12.3 NUCLEATED RED BLOOD CELLS (BEAKER) (test 0 /100 WBC 0-0 urus=652) NEUTROPHILS RELATIVE PERCENT (BEAKER) (test 62 % aynb=613) LYMPHOCYTES RELATIVE PERCENT (BEAKER) (test 30 % zjjw=407) MONOCYTES RELATIVE PERCENT (BEAKER) (test 7 % egij=885) EOSINOPHILS RELATIVE PERCENT (BEAKER) (test 0 % wfxk=840) BASOPHILS RELATIVE PERCENT (BEAKER) (test 1 % vcjg=105) NEUTROPHILS ABSOLUTE COUNT (BEAKER) (test 6.56 K/ L 1.56-6.13 gkrz=883) LYMPHOCYTES ABSOLUTE COUNT (BEAKER) (test 3.15 K/ L 1.18-3.74 uscx=974) MONOCYTES ABSOLUTE COUNT (BEAKER) (test 0.77 K/ L 0.24-0.36 mflm=038) EOSINOPHILS ABSOLUTE COUNT (BEAKER) (test 0.00 K/ L 0.04-0.36 akea=388) BASOPHILS ABSOLUTE COUNT (BEAKER) (test 0.07 K/ L 0.01-0.08 xbtq=703) IMMATURE GRANULOCYTES-RELATIVE PERCENT (BEAKER) 1 % 0-1 (test wota=1053) POCT-GLUCOSE [id number] 21:39:00 Test Item Value Reference Range Comments POC-GLUCOSE METER (BEAKER) 132 mg/dL 70-110 TESTED AT [address] (test pyzp=6562) [place] [address] POCT-GLUCOSE [id number] 16:59:00 Test Item Value Reference Range Comments POC-GLUCOSE METER (BEAKER) 135 mg/dL 70-110 TESTED AT [address] (test ajhl=6583) [place] [address] POCT-GLUCOSE [id number] 12:17:00 Test Item Value Reference Range Comments POC-GLUCOSE METER (BEAKER) 179 mg/dL 70-110 TESTED AT [address] (test nqpm=3007) [place] [address] LACTIC ACID, [id number] 09:29:00 Test Item Value Reference Range Comments LACTATE BLOOD VENOUS (2) (BEAKER) (test 1.3 mmol/L 0.5-2.2 jdsp=2907) POCT-GLUCOSE [id number] 09:23:00 Test Item Value Reference Range Comments POC-GLUCOSE METER (BEAKER) 134 mg/dL 70-110 TESTED AT [address] (test azsq=6303) [place] [address] [id number] 06:58:00 Test Item Value Reference Range Comments PHOSPHORUS (BEAKER) (test nued=575) 2.3 mg/dL 2.3-4.7 [id number] 06:58:00 Test Item Value Reference Range Comments MAGNESIUM (BEAKER) (test ouav=599) 2.0 mg/dL 1.6-2.6 CBC W/PLT COUNT & AUTO [id number] 06:30:00 Test Item Value Reference Range Comments WHITE BLOOD CELL COUNT (BEAKER) (test avoq=853) 10.1 K/ L 3.5-10.5 RED BLOOD CELL COUNT (BEAKER) (test besk=027) 3.82 M/ L 3.93-5.22 HEMOGLOBIN (BEAKER) (test exhl=539) 10.6 GM/DL 11.2-15.7 HEMATOCRIT (BEAKER) (test kqvl=682) 35.6 % 34.1-44.9 MEAN CORPUSCULAR VOLUME (BEAKER) (test oksl=958) 93.2 fL 79.4-94.8 MEAN CORPUSCULAR HEMOGLOBIN (BEAKER) (test 27.7 pg 25.6-32.2 zfdz=023) MEAN CORPUSCULAR HEMOGLOBIN CONC (BEAKER) (test 29.8 GM/DL 32.2-35.5 ckev=204) RED CELL DISTRIBUTION WIDTH (BEAKER) (test 14.7 % 11.7-14.4 uvmt=102) PLATELET COUNT (BEAKER) (test eqbo=879) 362 K/CU MM 150-450 MEAN PLATELET VOLUME (BEAKER) (test rjll=558) 9.1 fL 9.4-12.3 NUCLEATED RED BLOOD CELLS (BEAKER) (test 0 /100 WBC 0-0 mrap=581) NEUTROPHILS RELATIVE PERCENT (BEAKER) (test 69 % ncfy=611) LYMPHOCYTES RELATIVE PERCENT (BEAKER) (test 21 % iqyz=166) MONOCYTES RELATIVE PERCENT (BEAKER) (test 8 % nfhq=572) EOSINOPHILS RELATIVE PERCENT (BEAKER) (test 0 % vmcd=946) BASOPHILS RELATIVE PERCENT (BEAKER) (test 1 % aeqe=202) NEUTROPHILS ABSOLUTE COUNT (BEAKER) (test 7.00 K/ L 1.56-6.13 yutg=277) LYMPHOCYTES ABSOLUTE COUNT (BEAKER) (test 2.11 K/ L 1.18-3.74 vqdq=827) MONOCYTES ABSOLUTE COUNT (BEAKER) (test 0.84 K/ L 0.24-0.36 gkfl=506) EOSINOPHILS ABSOLUTE COUNT (BEAKER) (test 0.00 K/ L 0.04-0.36 pwll=904) BASOPHILS ABSOLUTE COUNT (BEAKER) (test 0.06 K/ L 0.01-0.08 plev=925) IMMATURE GRANULOCYTES-RELATIVE PERCENT (BEAKER) 1 % 0-1 (test zipb=6539) POCT-GLUCOSE [id number] 23:20:00 Test Item Value Reference Range Comments POC-GLUCOSE METER (BEAKER) 185 mg/dL 70-110 TESTED AT [address] (test smxn=0476) [place] [id number] POCT-GLUCOSE [id number] 17:44:00 Test Item Value Reference Range Comments POC-GLUCOSE METER (BEAKER) 215 mg/dL 70-110 TESTED AT [address] (test vtct=3401) [place] [id number] POCT-GLUCOSE [id number] 12:54:00 Test Item Value Reference Range Comments POC-GLUCOSE METER (BEAKER) 200 mg/dL 70-110 TESTED AT [address] (test zefa=9860) [place] [id number] POCT-GLUCOSE [id number] 08:42:00 Test Item Value Reference Range Comments POC-GLUCOSE METER (BEAKER) 167 mg/dL 70-110 TESTED AT [address] (test mgfu=1090) [place] [id number] 02:43:00 Test Item Value Reference Range Comments PHOSPHORUS (BEAKER) (test ihvk=278) 1.5 mg/dL 2.3-4.7 TROPONIN [id number] 02:15:00 Test Item Value Reference Range Comments TROPONIN I (BEAKER) (test dwiz=532) < ng/mL 0.00-0.03 Troponin I (TnI) levels [...] failure, acidosis, acute neurological disease, and persistent tachyarrhythmia.[id number] 02:08:00 Test Item Value Reference Range Comments MAGNESIUM (BEAKER) (test mtoy=783) 2.0 mg/dL 1.6-2.6 BASIC METABOLIC [id number] 02:08:00 Test Item Value Reference Range Comments SODIUM (BEAKER) (test 140 meq/L 136-145 hdes=153) POTASSIUM (BEAKER) (test 3.8 meq/L 3.5-5.1 dxyd=328) CHLORIDE (BEAKER) (test 106 meq/L 98-107 nrxf=143) CO2 (BEAKER) (test 29 meq/L 22-29 uuuz=848) BLOOD UREA NITROGEN 5 mg/dL 7-21 (BEAKER) (test jrbi=847) CREATININE (BEAKER) (test 0.58 mg/dL 0.57-1.25 aacv=322) GLUCOSE RANDOM (BEAKER) 110 mg/dL 70-105 (test yhzr=849) CALCIUM (BEAKER) (test 8.3 mg/dL 8.4-10.2 xpeb=435) EGFR (BEAKER) (test 103 mL/min/1.73 sq m ESTIMATED GFR IS NOT wcwv=8773) ACCURATE CREATININE CLEARANCE IN PREDICTING GLOMERULAR FILTRATION RATE. ESTIMATED GFR IS NOT APPLICABLE FOR DIALYSIS PATIENTS. CBC W/PLT COUNT & AUTO [id number] 01:44:00 Test Item Value Reference Range Comments WHITE BLOOD CELL COUNT (BEAKER) (test ptsh=605) 10.7 K/ L 3.5-10.5 RED BLOOD CELL COUNT (BEAKER) (test woqh=789) 3.43 M/ L 3.93-5.22 HEMOGLOBIN (BEAKER) (test xsco=946) 9.7 GM/DL 11.2-15.7 HEMATOCRIT (BEAKER) (test cohi=932) 30.8 % 34.1-44.9 MEAN CORPUSCULAR VOLUME (BEAKER) (test hfmu=246) 89.8 fL 79.4-94.8 MEAN CORPUSCULAR HEMOGLOBIN (BEAKER) (test 28.3 pg 25.6-32.2 cdzz=817) MEAN CORPUSCULAR HEMOGLOBIN CONC (BEAKER) (test 31.5 GM/DL 32.2-35.5 ikeq=564) RED CELL DISTRIBUTION WIDTH (BEAKER) (test 14.6 % 11.7-14.4 ekvk=877) PLATELET COUNT (BEAKER) (test bljk=230) 387 K/CU MM 150-450 MEAN PLATELET VOLUME (BEAKER) (test cveh=308) 9.3 fL 9.4-12.3 NUCLEATED RED BLOOD CELLS (BEAKER) (test 0 /100 WBC 0-0 qgqj=895) NEUTROPHILS RELATIVE PERCENT (BEAKER) (test 70 % tgkf=778) LYMPHOCYTES RELATIVE PERCENT (BEAKER) (test 20 % txub=561) MONOCYTES RELATIVE PERCENT (BEAKER) (test 9 % mqhm=432) EOSINOPHILS RELATIVE PERCENT (BEAKER) (test 0 % yees=944) BASOPHILS RELATIVE PERCENT (BEAKER) (test 1 % vupm=167) NEUTROPHILS ABSOLUTE COUNT (BEAKER) (test 7.44 K/ L 1.56-6.13 mnsq=758) LYMPHOCYTES ABSOLUTE COUNT (BEAKER) (test 2.12 K/ L 1.18-3.74 ejgy=035) MONOCYTES ABSOLUTE COUNT (BEAKER) (test 0.97 K/ L 0.24-0.36 ajdi=680) EOSINOPHILS ABSOLUTE COUNT (BEAKER) (test 0.00 K/ L 0.04-0.36 bpfr=243) BASOPHILS ABSOLUTE COUNT (BEAKER) (test 0.05 K/ L 0.01-0.08 veqj=080) IMMATURE GRANULOCYTES-RELATIVE PERCENT (BEAKER) 1 % 0-1 (test ijzp=9860) POCT-GLUCOSE [id number] 23:07:00 Test Item Value Reference Range Comments POC-GLUCOSE METER (BEAKER) 132 mg/dL 70-110 TESTED AT [address] (test cbpq=9060) [facility] [address] U/S, DRAINAGE, W/ CATH [id number] 20:54:00Reason for exam:->Needs percutaneous cholecystostomy tubeFINAL REPORT [...] was administered. Under ultrasound guidance, a 7 Armenian catheter was passed through the liver under trocar technique into the gallbladder. Approximately 120 mL of thick green and cloudy fluid was aspirated. The catheter was affixed to the skin and connected to suction bulb. Samples were sent for analysis. Post procedure scan showed no immediatecomplications. IMPRESSION: Successful transhepatic percutaneous cholecystostomy drainage catheter placement with a 7 Armenian catheter. Signed: John Paul Campo MDReport Verified Date/Time: 02/25/2019 20:54:16 Reading Location: [facility] C0Y [place] Body Reading Room POCT-GLUCOSE [id number] 17:58:00 Test Item Value Reference Range Comments POC-GLUCOSE METER (BEAKER) 243 mg/dL 70-110 TESTED AT [address] (test wzjf=4819) [facility] [address] POCT-GLUCOSE [id number] 12:14:00 Test Item Value Reference Range Comments POC-GLUCOSE METER (BEAKER) 90 mg/dL 70-110 TESTED AT [address] (test cjbm=3154) [facility] [address] [id number] 06:48:00 Test Item Value Reference Range Comments PHOSPHORUS (BEAKER) (test rclx=767) 2.0 mg/dL 2.3-4.7 [id number] 06:48:00 Test Item Value Reference Range Comments MAGNESIUM (BEAKER) (test hqgy=247) 2.2 mg/dL 1.6-2.6 BASIC METABOLIC [id number] 06:48:00 Test Item Value Reference Range Comments SODIUM (BEAKER) (test 139 meq/L 136-145 qsgd=411) POTASSIUM (BEAKER) (test 4.1 meq/L 3.5-5.1 pujy=625) CHLORIDE (BEAKER) (test 108 meq/L 98-107 qcdp=372) CO2 (BEAKER) (test 26 meq/L 22-29 dlrp=967) BLOOD UREA NITROGEN 8 mg/dL 7-21 (BEAKER) (test siqd=815) CREATININE (BEAKER) (test 0.64 mg/dL 0.57-1.25 xvyy=944) GLUCOSE RANDOM (BEAKER) 119 mg/dL 70-105 (test kiln=873) CALCIUM (BEAKER) (test 8.4 mg/dL 8.4-10.2 fdxm=365) EGFR (BEAKER) (test 92 mL/min/1.73 sq m ESTIMATED GFR IS NOT jqnu=2561) ACCURATE CREATININE CLEARANCE IN PREDICTING GLOMERULAR FILTRATION RATE. ESTIMATED GFR IS NOT APPLICABLE FOR DIALYSIS PATIENTS. PROTHROMBIN [id number] 06:44:00 Test Item Value Reference Range Comments PROTIME (BEAKER) (test bmgx=656) 16.9 seconds 11.9-14.2 INR (BEAKER) (test akun=033) 1.5 <=5.9 Effective 11/08/2018: PT Reference Range ChangeNew: 11.9-14.2 Previous: 11.7- 14.7RECOMMENDED COUMADIN/WARFARIN INR THERAPY RANGESSTANDARD DOSE: 2.0-3.0 Includes: PROPHYLAXIS for venous thrombosis, systemic embolization; TREATMENT for venous thrombosis and/or pulmonary embolus.HIGH RISK: Target INR is2.5-3.5 for patients wiht mechanical heart valves.CBC W/PLT COUNT & AUTO [id number] 06:35:00 Test Item Value Reference Range Comments WHITE BLOOD CELL COUNT (BEAKER) (test zbpg=575) 12.5 K/ L 3.5-10.5 RED BLOOD CELL COUNT (BEAKER) (test ugkq=323) 3.34 M/ L 3.93-5.22 HEMOGLOBIN (BEAKER) (test gyor=965) 9.4 GM/DL 11.2-15.7 HEMATOCRIT (BEAKER) (test peui=924) 31.0 % 34.1-44.9 MEAN CORPUSCULAR VOLUME (BEAKER) (test mkpe=250) 92.8 fL 79.4-94.8 MEAN CORPUSCULAR HEMOGLOBIN (BEAKER) (test 28.1 pg 25.6-32.2 xbrk=562) MEAN CORPUSCULAR HEMOGLOBIN CONC (BEAKER) (test 30.3 GM/DL 32.2-35.5 kiay=562) RED CELL DISTRIBUTION WIDTH (BEAKER) (test 14.9 % 11.7-14.4 juuk=706) PLATELET COUNT (BEAKER) (test gkzz=824) 381 K/CU MM 150-450 MEAN PLATELET VOLUME (BEAKER) (test vwtc=955) 9.4 fL 9.4-12.3 NUCLEATED RED BLOOD CELLS (BEAKER) (test 0 /100 WBC 0-0 mltz=229) NEUTROPHILS RELATIVE PERCENT (BEAKER) (test 76 % npzc=368) LYMPHOCYTES RELATIVE PERCENT (BEAKER) (test 13 % mvdo=627) MONOCYTES RELATIVE PERCENT (BEAKER) (test 9 % zrri=358) EOSINOPHILS RELATIVE PERCENT (BEAKER) (test 0 % uuar=232) BASOPHILS RELATIVE PERCENT (BEAKER) (test 1 % pdim=380) NEUTROPHILS ABSOLUTE COUNT (BEAKER) (test 9.57 K/ L 1.56-6.13 yjjn=921) LYMPHOCYTES ABSOLUTE COUNT (BEAKER) (test 1.65 K/ L 1.18-3.74 ihhx=547) MONOCYTES ABSOLUTE COUNT (BEAKER) (test 1.14 K/ L 0.24-0.36 kvom=560) EOSINOPHILS ABSOLUTE COUNT (BEAKER) (test 0.00 K/ L 0.04-0.36 gusd=931) BASOPHILS ABSOLUTE COUNT (BEAKER) (test 0.06 K/ L 0.01-0.08 tylc=416) IMMATURE GRANULOCYTES-RELATIVE PERCENT (BEAKER) 1 % 0-1 (test rcaj=0639) POCT-GLUCOSE [id number] 06:01:00 Test Item Value Reference Range Comments POC-GLUCOSE METER (BEAKER) 107 mg/dL 70-110 TESTED AT [facility] [address] [place] [address] (test cusd=5817) [facility] [address] U/S, ABDOMINAL, [id number] 03:14:00Reason for exam:->RUQ painFINAL REPORT INDICATION: RUQ [...] setting of hepatic steatosis. Signed: Ary Gonzalez [facility] Verified Date/Time: 02/25/2019 03:14:55 POCT-GLUCOSE [id number] 00:07:00 Test Item Value Reference Range Comments POC-GLUCOSE METER (BEAKER) 119 mg/dL 70-110 TESTED AT [address] (test msty=2525) [facility] [address] RAD, CHEST, 1 VIEW, NON [id number] 00:05:00Reason for exam:->Cough, concern for aspirationShould this [...] [place] Verified Date/Time: 02/25/2019 00:05:51 Reading Location: [facility] C013V Neuro Reading Room 12: 05 AMPOCT-GLUCOSE [id number] 18:38:00 Test Item Value Reference Range Comments POC-GLUCOSE METER (BEAKER) 76 mg/dL 70-110 TESTED AT [address] (test fvro=1963) [place] [address] POCT-GLUCOSE [id number] 12:26:00 Test Item Value Reference Range Comments POC-GLUCOSE METER (BEAKER) 101 mg/dL 70-110 TESTED AT [address] (test wijy=1280) [place] [address] TROPONIN [id number] 10:57:00 Test Item Value Reference Range Comments TROPONIN I (BEAKER) (test ktxq=909) < ng/mL 0.00-0.03 Troponin I (TnI) levels [...] acidosis, acute neurological disease, and persistent tachyarrhythmia.POCT-GLUCOSE [id number] 06:34:00 Test Item Value Reference Range Comments POC-GLUCOSE METER (BEAKER) 109 mg/dL 70-110 TESTED AT [address] (test jlnc=1962) [place] [address] B-TYPE NATRIURETIC FACTOR (BNP)2019-02-24 01:17:00 Test Item Value Reference Range Comments B-TYPE NATRIURETIC PEPTIDE (BEAKER) (test 255 pg/mL 0-100 hdnm=490) BASIC METABOLIC [id number] 01:12:00 Test Item Value Reference Range Comments SODIUM (BEAKER) (test 138 meq/L 136-145 aqqy=577) POTASSIUM (BEAKER) (test 3.7 meq/L 3.5-5.1 bznk=243) CHLORIDE (BEAKER) (test 106 meq/L 98-107 ybtz=092) CO2 (BEAKER) (test 24 meq/L 22-29 cxeo=417) BLOOD UREA NITROGEN 10 mg/dL 7-21 (BEAKER) (test svoz=791) CREATININE (BEAKER) (test 0.66 mg/dL 0.57-1.25 iomd=345) GLUCOSE RANDOM (BEAKER) 136 mg/dL 70-105 (test cztc=598) CALCIUM (BEAKER) (test 8.5 mg/dL 8.4-10.2 eqwx=279) EGFR (BEAKER) (test 89 mL/min/1.73 sq m ESTIMATED GFR IS NOT yvyz=3802) ACCURATE CREATININE CLEARANCE IN PREDICTING GLOMERULAR FILTRATION RATE. ESTIMATED GFR IS NOT APPLICABLE FOR DIALYSIS PATIENTS. CBC W/PLT COUNT & AUTO [id number] 00:53:00 Test Item Value Reference Range Comments WHITE BLOOD CELL COUNT (BEAKER) (test ucyc=152) 19.0 K/ L 3.5-10.5 RED BLOOD CELL COUNT (BEAKER) (test vtuv=126) 3.96 M/ L 3.93-5.22 HEMOGLOBIN (BEAKER) (test aiqv=914) 10.9 GM/DL 11.2-15.7 HEMATOCRIT (BEAKER) (test gqff=489) 36.0 % 34.1-44.9 MEAN CORPUSCULAR VOLUME (BEAKER) (test njcy=732) 90.9 fL 79.4-94.8 MEAN CORPUSCULAR HEMOGLOBIN (BEAKER) (test 27.5 pg 25.6-32.2 toob=475) MEAN CORPUSCULAR HEMOGLOBIN CONC (BEAKER) (test 30.3 GM/DL 32.2-35.5 uamy=189) RED CELL DISTRIBUTION WIDTH (BEAKER) (test 14.9 % 11.7-14.4 jktr=367) PLATELET COUNT (BEAKER) (test xqko=059) 369 K/CU MM 150-450 MEAN PLATELET VOLUME (BEAKER) (test pvok=504) 9.4 fL 9.4-12.3 NUCLEATED RED BLOOD CELLS (BEAKER) (test 0 /100 WBC 0-0 iefm=553) NEUTROPHILS RELATIVE PERCENT (BEAKER) (test 83 % svtx=248) LYMPHOCYTES RELATIVE PERCENT (BEAKER) (test 9 % xonl=806) MONOCYTES RELATIVE PERCENT (BEAKER) (test 6 % vzhe=499) EOSINOPHILS RELATIVE PERCENT (BEAKER) (test 0 % cjvq=707) BASOPHILS RELATIVE PERCENT (BEAKER) (test 0 % iqpw=995) NEUTROPHILS ABSOLUTE COUNT (BEAKER) (test 15.83 K/ L 1.56-6.13 kydz=200) LYMPHOCYTES ABSOLUTE COUNT (BEAKER) (test 1.65 K/ L 1.18-3.74 iday=263) MONOCYTES ABSOLUTE COUNT (BEAKER) (test 1.22 K/ L 0.24-0.36 ilxi=391) EOSINOPHILS ABSOLUTE COUNT (BEAKER) (test 0.00 K/ L 0.04-0.36 uvvy=976) BASOPHILS ABSOLUTE COUNT (BEAKER) (test 0.07 K/ L 0.01-0.08 hsvc=689) IMMATURE GRANULOCYTES-RELATIVE PERCENT (BEAKER) 1 % 0-1 (test remq=9966)
[2019-08-26] MEDS ORDERED: ONDANSETRON 4 MG/2 ML VIAL IV PRN (22:24)
[2019-08-26] MEDS ORDERED: LORazepam 2 MG/ML VIAL IV PRN (22:24)
[2019-08-26] MEDS ORDERED: BISACODYL 10 MG RECTAL SUPP PR PRN (22:24)
[2019-08-26] MEDS ORDERED: ACETAMINOPHEN 650MG/RECT SUPP PR PRN (22:24)
[2019-08-26] MEDS ORDERED: ALBUTEROL 2.5 MG/3 ML NEB SOL NEB PRN (22:44)
[2019-08-26] MEDS ORDERED: IPRATROPIUM BROM 0.5MG/2.5ML NEB PRN (22:44)
[2019-08-26 23:25] VITALS: BMI 29.2
[2019-08-27] MEDS: PIPER/TAZO/NS 3.375gm 3.375 GM/100 ML BAG IVPB SCH ×2 (01:00→09:32)
[2019-08-27] MEDS: CLINDAMYCIN PHOSPHATE 600 MG in NA CHLORIDE 0.9% 50 ML IV SCH ×3 (01:00→12:00)
[2019-08-27] MEDS: MORPHINE 2 MG/ML SYR IV PRN ×6 (02:00→12:31)
[2019-08-27 07:29] VITALS: O2SAT 91
[2019-08-27] MEDS ORDERED: PNEUMOCOCCAL VACCINE 0.5 ML IMVAC ONE (08:00)
[2019-08-27 11:08] VITALS: BP 108/57; TEMP 97.9
[2019-08-29] MEDS ORDERED: SCOPOLAMINE HYDROBROMIDE PATCH TD SCH (09:00)
== END 2019-08-27 17:25 | disposition expired | DRG 951 ==
LOC: 2ND 21:39
PROVIDERS: ADMIT Internal Medicine Hematology & Oncology; ATTEND Internal Medicine Hematology & Oncology
DX: Z51.5 Encounter for palliative care (principal); I50.9 Heart failure, unspecified
CPT/HCPCS: J2270; J2543; S0077